=== PATIENT | female | born 1965 | race Caucasian/White ===

== ENCOUNTER 2020-11-18 14:03 | Outpatient (CLI) | payer OTHER, SELFPAY ==
--- NOTE | ~2020-11-18 | MM_ITS ---
EXAMINATION: MM screening opal BI w chiquita HISTORY: Screening TECHNIQUE: Craniocaudal and mediolateral oblique 3-D tomosynthesis images were obtained and synthetic 2-D images were generated. CAD analysis was submitted and interpreted. COMPARISON: Comparison to multiple prior studies sequentially, with oldest reviewed study dated 07/16. BREAST PARENCHYMAL COMPOSITION: The breasts are almost entirely fatty. FINDINGS: There is no evidence of suspicious mass, calcification, or architectural distortion to sugg est malignancy in either breast. There has been no suspicious interval change. IMPRESSION: 1. No mammographic evidence of malignancy. 2. Recommend routine screening mammography in one year. BI-RADS Category 1: Negative Reviewed, dictated and finalized at location A.
== END 2020-11-18 14:04 | disposition home or self-care (01) ==
LOC: ANHIMG 14:07
PROVIDERS: PCP Family Medicine; Visit Provider Family Medicine
DX: Z12.31 Encounter for screening mammogram for malignant neoplasm of breast (principal)
CPT/HCPCS: 77063; 77067

== ENCOUNTER 2021-01-18 13:16 | Inpatient (IN) | payer OTHER, SELFPAY ==
--- NOTE | ~2021-01-18 | MR_ITS ---
EXAMINATION: MR MRCP wo/w con/w 3D wo ind DATE: 01/20/2021 11:23 INDICATION: Abdominal pain. Abnormal right upper quadrant ultrasound with dilated common bile duct. TECHNIQUE: Magnetic resonance imaging (MRI) of the abdomen was performed without and with 19 mL Multi caridad intravenous contrast. Sequences included coronal T2-weighted SS-FSE, coronal T2-weighted FS SS- FSE, coronal T2-weighted FS FIESTA, axial T2-weighted FS FIESTA, axial T2-weighted FIESTA, sagittal T 2-weighted SS-FSE, axial T1-weighted dual-echo FSPGR, axial T2-weighted SS-FSE, axial T1-weighted LAV A, axial T2-weighted STIR FSE. Thick-slab T2-weighted FRFSE-XL images were obtained for magnetic reso nance cholangiopancreatography (MRCP). Rotating maximum intensity projection 3-D reconstructions of t he volumetric data were created by the technologist. Postcontrast sequences included a time course of axial T1-weighted LAVA. COMPARISON: Ultrasound dated 01/19/2021 FINDINGS: ABDOMEN MRI: Heart size is normal. No pericardial or pleural effusion. Small sliding-type hiatal hernia. Diffuse h epatic steatosis with prominent signal dropout on opposed phase images. Gallbladder, spleen, bilatera l adrenal glands and kidney are normal. There is horizontal orientation of an otherwise normal right kidney. 3-4 mm cystic lesion at the body of the pancreas. Visualized portions of the bowels are leonor l. Trace amount of a splenic ascites. No pathologically enlarged abdominal lymphadenopathy. T1 hyperi ntense fat saturating small hemangioma at L3. Severe disc height loss with fibrofatty degenerative en dplate changes at L5-S1. No pathologic marrow replacing process. ABDOMEN MRCP: There is mild dilation of the common bile duct to 7 mm but which tapers smoothly with no evident stri cture or intraluminal filling defects to suggest choledocholithiasis. No cholelithiasis within the ga llbladder. No dilation of the main pancreatic duct or of the intrahepatic biliary tree. IMPRESSION: 1. Nonspecific mild dilation the common bile duct to 7 mm without evident obstructing stricture, mass or stones. 2. 3 to 4 mm cystic lesion at the body of the pancreas. The differential diagnosis includes pseudocys t, intraductal papillary mucinous neoplasm (IPMN), mucinous cystic neoplasm (MCN), and the less commo n serous cystadenoma and neuroendocrine tumor. Correlate for history of pancreatitis. Recommend one-y ear follow-up pre and postcontrast MRI. 3. Prominent diffuse hepatic steatosis. 4. Small sliding-type hiatal hernia. 5. Trace amount of perisplenic ascites. Reviewed, dictated and finalized at location A. IMPRESSION: 1. Nonspecific mild dilation the common bile duct to 7 mm without evident obstr ucting stricture, mass or stones. 2. 3 to 4 mm cystic lesion at the body of the pancreas. The differential diagno sis includes pseudocyst, intraductal papillary mucinous neoplasm (IPMN), mucino us cystic neoplasm (MCN), and the less common serous cystadenoma and neuroendoc rine tumor. Correlate for history of pancreatitis. Recommend one-year follow-up pre and postcontrast MRI. 3. Prominent diffuse hepatic steatosis. 4. Small sliding-type hiatal hernia. 5. Trace amount of perisplenic ascites.
--- NOTE | ~2021-01-18 | US_ITS ---
EXAMINATION: US right upper quadrant DATE: 01/19/2021 11:24 INDICATION: Transaminitis TECHNIQUE: Multiple grayscale and Doppler ultrasound images of the abdomen were obtained. COMPARISON: 05/27/2016 FINDINGS: The head and body of the pancreas are normal. The pancreatic tail is obscured by bowel gas. The liver is normal with normal echogenicity and echotexture. No surface nodularity. Normal hepatope liban flow in the main portal vein. The gallbladder is normal with no abnormal wall thickening, pericho lecystic fluid or stones. The mildly enlarged common bile duct measures 7 mm. There was no sonographi c Ballesteros sign. IMPRESSION: 1. Mild enlargement of the common bile duct of unclear etiology. Consider MRCP. Reviewed, dictated and finalized at location A.
--- NOTE | ~2021-01-18 | MR_ITS ---
EXAMINATION: MR lumbar spine wo/w con DATE: 01/19/2021 11:14 INDICATION: Numbness and tingling of the lower extremities. Mid to low back pain. TECHNIQUE: Magnetic resonance imaging (MRI) of the lumbar spine was performed without and with 19 mL MultiHance intravenous contrast. Sequences included sagittal T2-weighted FSE, sagittal T2-weighted FS FSE, and sagittal and axial T1-weighted FSE. Postcontrast sequences included axial T2-weighted FSE a nd axial and sagittal T1-weighted FS FSE. COMPARISON: None FINDINGS: There is 4 degrees dextrocurvature of thoracic lumbar spine. There is 3 mm retrolisthesis o f L4 on L5 and L5 on S1. Vertebral body heights are normal. There is mildly decreased disc height at L2-L3. There is severely decreased disc height at L5-S1 with endplate remodeling. The distal spinal c ord signal intensity is normal. The conus medullaris is at L1. The following disc levels are specific ally discussed: L1-L2: The disc is bulging and has an annular fissure. There is mild bilateral facet joint osteoarthr itis. There is mild bilateral neural foraminal stenosis. There is mild central canal stenosis. L2-L3: The disc is bulging and has an annular fissure. There is moderate bilateral facet joint osteoa rthritis. There is mild bilateral neural foraminal stenosis. There is mild central canal stenosis. L3-L4: The disc is bulging. There is severe bilateral facet joint osteoarthritis. There is mild bilat eral neural foraminal stenosis. There is mild central canal stenosis. L4-L5: The disc is bulging and has an annular fissure. There is severe bilateral facet joint osteoart hritis. There is mild bilateral neural foraminal stenosis. There is mild central canal stenosis. L5-S1: The disc is bulging with superimposed right central extrusion. There is moderate and severe le ft facet joint osteoarthritis. There is mild bilateral neural foraminal stenosis. There is mild centr al canal stenosis. IMPRESSION: 1. Severe lower lumbar spondylosis. Reviewed, dictated and finalized at location A.
--- NOTE | ~2021-01-18 | MR_ITS ---
EXAMINATION: MR thoracic spine wo/w con DATE: 01/19/2021 11:15 INDICATION: Mid and low back pain. Bilateral lower extremity numbness and tingling. TECHNIQUE: Magnetic resonance imaging (MRI) of the thoracic spine was performed without and with 19 m L MultiHance intravenous contrast. Sequences included sagittal and axial T2-weighted FSE, sagittal T2 -weighted FS FSE, and sagittal and axial T1-weighted FSE. Postcontrast sequences included sagittal an d axial T1-weighted FS FSE. COMPARISON: None FINDINGS: There is 6 degrees levocurvature of thoracic spine. Vertebral body heights are normal. Ther e is mildly decreased disc height at T3-T4 and T4-T5, moderately decreased disc height from T5-T6 thr ough T9-T10, and mildly decreased disc height at T10-T11. At T4-T5, there is a left central protrusio n. There is multilevel facet joint osteoarthritis, mild at most levels. No neural foraminal stenosis or central canal stenosis. There is moderate cervical spondylosis. The spinal cord signal intensity i s normal. IMPRESSION: 1. Moderate thoracic spondylosis. Reviewed, dictated and finalized at location A.
--- NOTE | ~2021-01-18 | XR_ITS ---
EXAMINATION: XR chest 2V DATE: 01/18/2021 14:19 INDICATION: Weakness and midsternal chest pain TECHNIQUE: Frontal and lateral views of the chest are obtained COMPARISON: 12/20/2011 FINDINGS: The lungs are free of acute opacities. There is no pleural effusion or pneumothorax. The ca rdiomediastinal silhouette is normal. There is moderate thoracic spondylosis. IMPRESSION: 1. No acute cardiopulmonary abnormality. Reviewed, dictated and finalized at location A.
--- NOTE | 2021-01-18 13:38 | ECG_ITS ---
Measurements Intervals [place] Plane Rate: 102 P: 44 NE: 136 QRS: -6 QRSD: 89 T: 37 QT: 368 QTc: 480 Interpretive Statements SINUS TACHYCARDIA POSSIBLE LEFT ATRIAL ENLARGEMENT INCOMPLETE RIGHT BUNDLE BRANCH BLOCK LOW QRS VOLTAGE IN PRECORDIAL LEADS POOR R WAVE PROGRESSION, CONSIDER ANTERIOR INFARCT BORDERLINE T WAVE ABNORMALITY- ANT/INF LEADS ABNORMAL ECG Electronically Signed On 01-18-2021 14:03:54 CDT by Dayron Hernandez D.O.
[2021-01-18 13:41] VITALS: BP 99/75; PULSE 109; RESP 14; TEMP 36.9; O2SAT 99
[2021-01-18 14:24] LABS: Basophils Percent Auto 0.3 % (0.2-1.2); Eosinophils Percent Auto 0.3 % (0-4.4); Hematocrit 34.2 % (37.0-47.0); Hemoglobin 12.6 g/dL (12.0-15.0); Immature Granulocyte Absolute 0.02 K/mm3 (0.00-0.031); Immature Granulocyte Percent A 0.3 % (0-0.5); Lymphocytes Absolute Auto 1.56 K/mm3 (0.9-3.2); Mean Corpuscular HGB Conc 36.8 g/dl (32-36); Mean Corpuscular Hemoglobin 40.5 pg (26-34); Mean Platelet Volume 8.9 fl (7.4-10.4); Monocytes Absolute Auto 0.6 K/mm3 (0.1-0.6); Monocytes Percent Auto 8.4 % (2.6-8.5); Neutrophils Absolute Auto 4.6 K/mm3 (1.3-6.7); Neutrophils Percent Auto 67.7 % (45.5-73.1); Platelet Count Result 211 k/mm3 (150-375); Red Blood Count 3.11 M/mm3 (4.2-5.4); Red Cell Distribution Width 13.6 % (11.5-14.5); White Blood Count 6.8 K/mm3 (4.5-10.0)
[2021-01-18 14:46] VITALS: PULSE 92; RESP 16; O2SAT 99
[2021-01-18 14:51] LABS: Alanine Aminotransferase 149 U/L (4-35); Albumin Level 3.6 g/dL (3.5-5.1); Alkaline Phosphatase 219 U/L (38-126); Anion Gap 14 mmol/L (8-16); Aspartate Amino Transferase 315 U/L (14-36); Blood Urea Nitrogen 3 mg/dL (7-17); Calcium 9.1 mg/dL (8.4-10.2); Carbon Dioxide 24 mmol/L (22-30); Chloride 87 mmol/L (98-107); Estimated CRCL calculation 107 ml/min; Estimated Glomerular Filt Rate > 60; Glucose 101 mg/dL (65-110); Potassium 2.5 mmol/L (3.4-5.0); Sodium 125 mmol/L (137-145)
--- NOTE | 2021-01-18 15:31 | ED.GENADULT ---
HPI - General Adult General Chief complaint: Neuro Symptoms/Deficit Stated complaint: numbness BLE Time Seen by Provider: 01/18/21 14:38 History of Present Illness HPI narrative: Patient is a 55-year-old female who presents ER with numbness/tingling to her lower extremities and her lower abdomen below the umbilicus. Patient reports couple days ago she had viral syndrome with sinus congestion. She obtained a Covid test which was negative. She reports she has been having diarrhea and some nausea. She has history of gastric bypass. Noticed today that she was having lower extremity tingling. She still able to walk but feels weaker in the affected extremities. Related Data Home Medications Medication Instructions Recorded Confirmed cyclobenzaprine 5 mg PO DAILY PRN 01/18/21 01/18/21 levothyroxine [Levoxyl] 25 mcg PO DAILY 01/18/21 01/18/21 ondansetron 8 mg PO BIDWMEAL 01/18/21 01/18/21 Allergies Allergy/AdvReac Type Severity Reaction Status Date / Time sibutramine Allergy Mild Rash Verified 01/18/21 18:45 amitriptyline Allergy Unknown Seizure Verified 01/18/21 18:45 carbamazepine Allergy Unknown Unknown Verified 01/18/21 18:45 Review of Systems Review of Systems: All systems reviewed & are unremarkable except as noted in HPI and below Constitutional: Constitutional: Denies chills, Denies fever(s) and Reports weakness ENT: Denies nasal congestion and Denies sore throat Cardiovascular: Cardiovascular: Denies chest pain, Denies rapid heart rate and Denies radiating jaw, neck or arm pain Respiratory: Respiratory: Denies cough, Denies dyspnea and Denies wheezing Gastrointestinal: Gastrointestinal: Denies abdominal pain, Reports diarrhea, Reports nausea and Denies vomiting [facility] Past Medical History Medical History (Updated 01/23/21 @ 18:57 by Eren Banerjee MD) Alcoholism Anxiety and depression Chronic diarrhea Essential hypertension GERD (gastroesophageal reflux disease) Hypothyroidism Obstructive sleep apnea resolved after weight loss surgery Surgical History Surgical History (Updated 01/18/21 @ 21:30 by Lauren Hines DO) History of carpal tunnel release (~2006) right History of hysterectomy for benign disease (~2008) History of right knee joint replacement (~2014) History of right oophorectomy (~2008) Status post laparoscopic sleeve gastrectomy (~2017) preop weight 330 lb Family History Family History (Updated 01/18/21 @ 21:40 by Lauren Hines DO) Father Hypertension Malignant neoplasm of prostate Mother Heart disease IBS (irritable bowel syndrome) Son Crohn's disease Other Carcinoma of colon Depression Social History Social History (Updated 01/18/21 @ 21:46 by Lauren Hines DO) Social History: she lives at home with her small dog. She has been since 2019. She has smoked a half a pack of cigarettes per day for approximately 30 years. she has a complicated history with alcohol abuse. She used to drink quite heavily and then quit drinking for several years but when her became ill in 2018 she started drinking heavily again. She drinks approximately 6 mixed drinks a day. 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 She has 1 son. Primary care physician: Dr. Patricio Atkinson Smoking packs per day: 0.5 Smoking cigarettes per day: 10.0 Years smoked: 30 Smoking pack-years: 15.00 Smoking status: Current every day smoker Tobacco type: cigarettes Second hand tobacco smoke exposure: Yes Alcohol intake: current Drinks per week: 20 Substance use: former Gender identity (if verbalized by the patient): Female Spiritual care concerns: No Exam Narrative: GENERAL: Ill-appearing, well-nourished, and in no acute distress. HEAD: Normocephalic, atraumatic. EYES: PERRL and EOMI. CHEST: Clear to auscultation. No respiratory distress. HEART: Tachycardic regular.. Normal p
[2021-01-18] MEDS: POTASSIUM CHLORIDE 20 MEQ PACKET (FOR LIQUID) 40 MEQ PO (15:52)
[2021-01-18 16:15] LABS: Magnesium 1.6 mg/dL (1.6-2.3)
[2021-01-18] MEDS: SODIUM CHLORIDE 0.9% IV 1,000 ML 999 ML IV CONT (16:31)
[2021-01-18 17:39] VITALS: BP 159/122; PULSE 95; RESP 22; O2SAT 100
[2021-01-18 17:55] LABS: Add Urine Microscopic? YES; Appearance Urine Cloudy (Clear); Bacteria Urine Trace /hpf; Bilirubin Urine Negative (Negative); Color Urine Yellow (Yellow); Glucose Urine UA Negative (Negative); Ketones Urine Negative (Negative); Leukocyte Esterase Ur 1+ LEU/UL (Negative); Mucus Urine Rare /lpf; Nitrate Urine Positive (Negative); Protein Urine Negative (Negative); RBC Urine 0-2 /hpf (0-2); Specific Grav Ur 1.011 (1.001-1.035); Squamous Epithelial Cell Urine Moderate /hpf (Few); Urobilinogen Urine Negative mg/dL (<2.0)
[2021-01-18 18:00] LABS: Blood Urine Negative (Negative)
--- NOTE | 2021-01-18 18:19 | ADMGEN ---
This patient, Jazlyn Waddell, was admitted to Medical Room 249-01. Patient/family oriented to hospital policies and general routines including ID bracelet, bed and alarms, visiting hours, pain management, procedures, bathroom and other care routines, personal items, smoking policy, room service/diet, and visiting hours. Information on how to activate the Rapid Response Team has been discussed. Patient/Family are encouraged to report perceived risks to care and to ask questions if they do not understand what they are told or what they should do.
[2021-01-18 18:25] VITALS: BMI 32.8
[2021-01-18 18:27] VITALS: BMI 32.8
[2021-01-18 19:01] VITALS: BP 143/111; PULSE 107; RESP 18; TEMP 36.4; O2SAT 99
--- NOTE | 2021-01-18 19:03 | PM.IMHP ---
H&P: HPI History of Present Illness Date/Time: 01/18/21 19:03 Chief Complaint: Numbness and tinglingin her legs and abdomen. Narrative: 55-year-old female with past medical history of alcoholism, hypothyroidism, obesity status post gastric sleeve, GERD, anxiety and depression who presented to the ER with paresthesias of bilateral feet and legs. She reports that she has been having several months of weakness in her legs. She reports that her legs will randomly give out on her. Over the last week she has been having paresthesias of her legs and abdomen. She also has some paresthesias in her hands. She reports the sensation is similar to the paresthesias that she has on her right knee following her right total knee arthroplasty. She reports decreased sensation to pinprick. She reports that she will get senior living across the room and her legs will be so weak that she has to sit down. She did have gastric sleeve in 2017 and has not been taking her bariatric vitamins as directed. She has also been drinking alcohol heavily since her got cancer in 2018 and in 2019. She has a long history of alcoholism but had quit drinking for several years and started drinking again in 2018. Since her gastric sleeve she has had chronic diarrhea almost on a daily basis. She will have episodes of mucousy stools at times. For the most part her stools are brown. She does take Imodium on occasion to help with the diarrhea. She reports her abdomen feels generally achy in the lower quadrants. She denies any hematochezia or melena. She does occasionally have hemorrhoids that occur. She already has an outpatient appointment with a post acute care nurse practitioner for colonoscopy in January 28 at [facility]. She has had intermittent nausea and vomiting ever since her gastric sleeve procedure. She reports that postoperatively she had had a trochanter left in her abdomen. She reports that she is currently in the process of suing the surgeon for her bypass procedure. Ever since her gastric sleeve she has frequent episodes of nausea. She states that she will frequently wake up dry heaving. She denies any hematemesis or coffee-ground emesis. She has not been having any fevers or chills. She reports that she falls all the time. Most the time she reports that she plans on her face . It sounds as if she is falling in part due to alcohol consumption. She drinks at least 6 mixed drinks a day except for the 2 days a week where she works she only drinks 2 or 3 alcoholic beverages at that time. She mixes her alcohol with juice. 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 she reports that she has noticed that her memory seems to be slipping a little bit. Review of Systems Review of Systems: 12 systems were reviewed with pertinent positives and negatives per HPI. Except as documented in the HPI, all other systems were reviewed and are negative. [facility] Past Medical History Medical History (Updated 01/18/21 @ 22:02 by Lauren Hines DO) Alcoholism Anxiety and depression Chronic diarrhea Essential hypertension GERD (gastroesophageal reflux disease) Hypothyroidism Obstructive sleep apnea resolved after weight loss surgery Surgical History Surgical History (Updated 01/18/21 @ 21:30 by Lauren Hines DO) History of carpal tunnel release (~2006) right History of hysterectomy for benign disease (~2008) History of right knee joint replacement (~2014) History of right oophorectomy (~2008) Status post laparoscopic sleeve gastrectomy (~2016) preop weight 330 lb Family History Family History (Updated 01/18/21 @ 21:40 by Lauren Hines DO) Father Hypertension Malignant neoplasm of prostate Mother Heart disease IBS (irritable bowel syndrome) Son Crohn's disease Other Carcinoma of colon Depression Social History Social Hi
[2021-01-18] MEDS: MAGNESIUM SULF 2 GM/WATER 50ML 2 GM/50 ML BAG IVPB (19:04)
[2021-01-18] MEDS: SODIUM CHLORIDE 0.9% IV 1,000 ML 125 ML IV CONT (19:04)
[2021-01-18 20:00] VITALS: PULSE 107; PULSE 97; RESP 18; O2SAT 99
[2021-01-18 21:30] LABS: Anion Gap 10 mmol/L (8-16); Blood Urea Nitrogen 3 mg/dL (7-17); Calcium 8.7 mg/dL (8.4-10.2); Carbon Dioxide 24 mmol/L (22-30); Chloride 92 mmol/L (98-107); Estimated CRCL calculation 125 ml/min; Estimated Glomerular Filt Rate > 60; Glucose 96 mg/dL (65-110); Potassium 3.7 mmol/L (3.4-5.0); Sodium 126 mmol/L (137-145)
[2021-01-18 22:02] LABS: Hepatitis B Surface Antigen Negative (Negative)
[2021-01-18 22:08] LABS: HAV RESULT Negative (Negative); Hepatitis B Core IgM Result Negative (Negative)
[2021-01-18] MEDS: chlordiazePOXIDE (*CRX) 10 MG CAPSULE PO (22:17)
[2021-01-18 22:20] LABS: Hepatitis C Virus Antibody Negative (Negative)
[2021-01-19] VITALS (7 sets, daily range): BP systolic 138–143; BP diastolic 83–111; PULSE 79–88; RESP 16–24; TEMP 36.3–36.6; O2SAT 97–100
[2021-01-19 02:01] LABS: Sodium Urine Random < 5 meq/L
[2021-01-19] MEDS: chlordiazePOXIDE (*CRX) 10 MG CAPSULE PO ×3 (04:28→20:58)
[2021-01-19 06:06] LABS: Hematocrit 29.5 % (37.0-47.0); Mean Corpuscular HGB Conc 37.3 g/dl (32-36); Mean Corpuscular Hemoglobin 40.9 pg (26-34); Mean Corpuscular Volume 109.7 fl (80-100); Mean Platelet Volume 9.3 fl (7.4-10.4); Platelet Count Result 180 k/mm3 (150-375); Red Blood Count 2.69 M/mm3 (4.2-5.4); Red Cell Distribution Width 13.3 % (11.5-14.5); White Blood Count 5.6 K/mm3 (4.5-10.0)
[2021-01-19 06:22] LABS: Alanine Aminotransferase 129 U/L (4-35); Albumin Level 3.1 g/dL (3.5-5.1); Alkaline Phosphatase 186 U/L (38-126); Anion Gap 6 mmol/L (8-16); Aspartate Amino Transferase 240 U/L (14-36); Bilirubin,Total 1.2 mg/dL (0.2-1.3); Blood Urea Nitrogen 5 mg/dL (7-17); Calcium 8.2 mg/dL (8.4-10.2); Carbon Dioxide 27 mmol/L (22-30); Chloride 92 mmol/L (98-107); Estimated CRCL calculation 125 ml/min; Estimated Glomerular Filt Rate > 60; Glucose 77 mg/dL (65-110); Lipase 33 U/L (23-300); Magnesium 2.2 mg/dL (1.6-2.3); Phosphorus 2.5 mg/dL (2.5-4.5); Potassium 3.2 mmol/L (3.4-5.0); Sodium 125 mmol/L (137-145)
[2021-01-19] MEDS: LEVOTHYROXINE SODIUM 25 MCG TABLET PO (06:23)
[2021-01-19 07:20] LABS: Folic Acid 2.5 ng/mL (2.76->20); Vitamin B12 > 1000.0 pg/mL (239-931)
[2021-01-19] MEDS: ENOXAPARIN 40 MG/0.4 ML SYRINGE SUB-Q (09:14)
[2021-01-19] MEDS: ONDANSETRON HCL ODT 4 MG TABLET 8 MG PO ×2 (09:15→17:15)
[2021-01-19] MEDS: FOLIC ACID 1 MG TABLET PO (09:15)
[2021-01-19] MEDS: THIAMINE HCL 100 MG TABLET PO (09:15)
[2021-01-19] MEDS: POTASSIUM CHLORIDE 20 MEQ TABLET.ER PO (09:16)
[2021-01-19] MEDS: POTASSIUM CHLORIDE 20 MEQ TABLET 40 MEQ PO ×2 (12:15→15:04)
[2021-01-19] MEDS: SODIUM CHLORIDE 0.9% IV 1,000 ML 125 ML IV CONT (12:15)
--- NOTE | 2021-01-19 14:21 | PM.IMPN ---
Progress Note: A&P Assessment and Plan (1) Paresthesias: Code(s): R20.2 - Paresthesia of skin Status: Acute Assessment and Plan: -paresthesia lower extremities umbilicus. consulting neurology. If worsening then will have to consider guillan barre. considering she was recently with a viral illness a month ago. - may be related to electrolyte abnormalities from alcoholism, repleting potassium - B12 greater than 1000 - folate slightly low will continue to supplement along with thiamine especially with her alcoholism (2) Chronic diarrhea: Code(s): K52.9 - Noninfective gastroenteritis and colitis, unspecified Status: Acute Assessment and Plan: - may be related to alcoholism, s/p gastric bypass sleeve. may be related to electrolyte depletion. Will obtain MRCP for CBD evaluation - continue Imodium - continue IV fluids for hyponatremia (3) Alcoholism: Code(s): F10.20 - Alcohol dependence, uncomplicated Status: Acute Assessment and Plan: - case management resources provided for AA - CIWA protocol, continue Librium taper (4) Transaminitis: Code(s): R74.01 - Elevation of levels of liver transaminase levels Status: Acute Assessment and Plan: - right upper quadrant ultrasound concerning with dilated common bile duct, recommendations for MRCP, will order MRCP for further evaluation. In may be related to her chronic diarrhea and abdominal issues - Zofran for nausea (5) Acute hyponatremia: Code(s): E87.1 - Hypo-osmolality and hyponatremia Status: Acute Assessment and Plan: - likely secondary to alcoholism and poor p.o. intake, IV fluids normal saline given for likely hypovolemic hyponatremia considering her diarrhea - will do fluid restriction 1500 cc - awaiting hypernatremia lab work (6) Hypomagnesemia: Code(s): E83.42 - Hypomagnesemia Status: Acute Assessment and Plan: likely related to alcoholism, repleting as needed (7) Hypokalemia due to excessive gastrointestinal loss of potassium: Code(s): E87.6 - Hypokalemia Status: Acute Assessment and Plan: replete as needed. potassium is 3.2 giving another 40 mEq x2 Additional Plan diet: Regular DVT prophylaxis: Lovenox code status: Full code Disposition: Pending clinical course social: Spouse updated bedside Subjective Date/time seen: 01/19/21 14:21 patient examined bedside. We awaiting lab results and imaging results. B12 is greater than a 1000 which is reassuring. Case management has provided information for alcoholism. we will continue to replete electrolytes and follow-up. Patient had of viral illness recently and there was some concern for guillain barre will consult neurology. patient endorses abdominal pain, diarrhea. She endorses the numbness of her lower extremities up to her umbilicus. the symptoms appear to be on the ventral side sparing the dorsal aspect of her body surface. at this time etiology is very unclear. Patient denies fever, chills, nausea, vomiting. Review of Systems Review of Systems: All systems reviewed & are unremarkable except as noted in HPI and below Exam Narrative: - GENERAL: Pleasant obese female appears stated age - EYES: EOMI. Anicteric. - HENT: Moist mucous membranes. - LUNGS: Clear to auscultation bilaterally, no wheezing, rhonchi, or rales. - CARDIOVASCULAR: Regular rate and rhythm. No murmur. No JVD. - ABDOMEN: Soft, non-distended. No palpable masses. tender on deep palpation lower quadrants - EXTREMITIES: No edema. Peripheral pulses 2+. Non-tender. - NEUROLOGIC: No focal neurological deficits. CN II-XII grossly intact. - PSYCHIATRIC: Awake, Alert and oriented x 3. Appropriate mood and affect. - SKIN: No rashes or lesions. Warm. - LYMPH: No cervical lymphadenopathy. Objective Data Vital Signs Vital Signs: Vital Signs - 24 hr 01/18/21 14:46 01/18/21 17:39 01/18/21 19:01 Temperat
[2021-01-19 15:42] LABS: Creatinine Urine 117.3 mg/dL
[2021-01-19] MEDS: SODIUM CHLORIDE 0.9% IV 1,000 ML 100 ML IV CONT (20:57)
[2021-01-19] MEDS: rOPINIRole HCL 0.25 MG TABLET PO (21:23)
[2021-01-20] VITALS: BP 139/90; PULSE 78
[2021-01-20] MEDS: chlordiazePOXIDE (*CRX) 10 MG CAPSULE PO ×2 (03:50→12:44)
[2021-01-20 04:00] VITALS: BP 139/90; PULSE 101
[2021-01-20 05:02] VITALS: BP 125/86; PULSE 96; RESP 20; TEMP 36; O2SAT 98
[2021-01-20] MEDS: LOPERAMIDE HCL 2 MG CAPSULE PO (06:04)
[2021-01-20] MEDS: LEVOTHYROXINE SODIUM 25 MCG TABLET PO (06:04)
[2021-01-20] MEDS: SODIUM CHLORIDE 0.9% IV 1,000 ML 100 ML IV CONT (06:07)
[2021-01-20 07:56] LABS: Basophils Percent Auto 0.4 % (0.2-1.2); Eosinophils Percent Auto 0.7 % (0-4.4); Hematocrit 33.1 % (37.0-47.0); Hemoglobin 11.6 g/dL (12.0-15.0); Immature Granulocyte Absolute 0.02 K/mm3 (0.00-0.031); Immature Granulocyte Percent A 0.4 % (0-0.5); Lymphocytes Absolute Auto 1.87 K/mm3 (0.9-3.2); Lymphocytes Percent Auto 33.3 % (18.3-44.2); Mean Corpuscular Hemoglobin 40.6 pg (26-34); Mean Corpuscular Volume 115.7 fl (80-100); Mean Platelet Volume 9.3 fl (7.4-10.4); Monocytes Absolute Auto 0.4 K/mm3 (0.1-0.6); Monocytes Percent Auto 7.5 % (2.6-8.5); Neutrophils Absolute Auto 3.3 K/mm3 (1.3-6.7); Neutrophils Percent Auto 57.7 % (45.5-73.1); Platelet Count Result 222 k/mm3 (150-375); Red Blood Count 2.86 M/mm3 (4.2-5.4); Red Cell Distribution Width 13.9 % (11.5-14.5); White Blood Count 5.6 K/mm3 (4.5-10.0)
[2021-01-20 08:00] VITALS: PULSE 81
[2021-01-20 08:58] LABS: Anion Gap 8 mmol/L (8-16); Blood Urea Nitrogen 6 mg/dL (7-17); Calcium 8.8 mg/dL (8.4-10.2); Carbon Dioxide 21 mmol/L (22-30); Chloride 103 mmol/L (98-107); Estimated CRCL calculation 107 ml/min; Estimated Glomerular Filt Rate > 60; Glucose 81 mg/dL (65-110); Potassium 3.8 mmol/L (3.4-5.0); Sodium 132 mmol/L (137-145)
[2021-01-20] MEDS: THIAMINE HCL 100 MG TABLET PO (09:49)
[2021-01-20] MEDS: FOLIC ACID 1 MG TABLET PO (09:49)
[2021-01-20] MEDS: POTASSIUM CHLORIDE 20 MEQ TABLET.ER PO (09:49)
[2021-01-20] MEDS: ENOXAPARIN 40 MG/0.4 ML SYRINGE SUB-Q (09:49)
[2021-01-20] MEDS: ONDANSETRON HCL ODT 4 MG TABLET 8 MG PO (09:49)
--- NOTE | 2021-01-20 10:13 | PC.NURSE ---
This patient, Jazlyn Waddell, was transferred to [[facility] ] on 01/20/21 at 1014. Personal belongings sent with patient. Report given to [Duong ]. Appropriate documentation sent with patient.
--- NOTE | 2021-01-20 11:30 | PC.NURSE ---
This patient, Jazlyn Waddell, was received from [ MRI] on 01/20/21 at 1130. Patient/family oriented to unit policies and routines
--- NOTE | 2021-01-20 11:54 | PM.IMPN ---
Progress Note: A&P Assessment and Plan (1) Paresthesias: Code(s): R20.2 - Paresthesia of skin Status: Acute Assessment and Plan: - consulting Neurology, patient may need outpatient EMG. as her reflexes are okay I do not believe this is Guillane [place] -likely explanation for symptoms are the severe lumbar spondylolysis. she will need outpatient neurosurgery evaluation (2) Chronic diarrhea: Code(s): K52.9 - Noninfective gastroenteritis and colitis, unspecified Status: Acute Assessment and Plan: - ongoing symptoms for the past year -may be dumping syndrome after gastric sleeve surgery -Will evaluate MRCP for biliary duct (3) Alcoholism: Code(s): F10.20 - Alcohol dependence, uncomplicated Status: Acute Assessment and Plan: CIWA are low - will continue supplementation of vitamins (4) Transaminitis: Code(s): R74.01 - Elevation of levels of liver transaminase levels Status: Acute Assessment and Plan: liver ultrasound was concerning for dilated common bile duct, follow-up MRCP today (5) Acute hyponatremia: Code(s): E87.1 - Hypo-osmolality and hyponatremia Status: Acute Assessment and Plan: sodium is up trending, sodium 132 (6) Hypokalemia due to excessive gastrointestinal loss of potassium: Code(s): E87.6 - Hypokalemia Status: Acute Assessment and Plan: Replete potassium Additional Plan diet: Regular DVT prophylaxis: Lovenox code status: Full code Disposition: Pending clinical course, discharge home soon Time Spent With Patient Time with patient: 15 - 25 minutes Subjective Date/time seen: 01/20/21 11:54 patient examined. She still having episodes of Urinary incontinence and loose bowels. she was found to have E coli in her urine, we discussed starting Rocephin antibiotic. She is NPO for MRCP this morning after ultrasound yesterday. I discussed neurology who will evaluate patient today. Patient started Requip yesterday which helped her restless legs. etiology for symptoms are likely secondary to the severe lumbar spondylolysis, patient can have outpatient EMG to further evaluate as well. patient denies fever, chills, nausea, vomiting. We discussed that her diarrhea which is chronic over a year may be related to dumping syndrome from her gastric sleeve however we are working up a biliary duct etiology with MRCP. Review of Systems Review of Systems: All systems reviewed & are unremarkable except as noted in HPI and below Exam Narrative: - GENERAL: Pleasant obese female appears stated age - EYES: EOMI. Anicteric. - HENT: Moist mucous membranes. - LUNGS: Clear to auscultation bilaterally, no wheezing, rhonchi, or rales. - CARDIOVASCULAR: Regular rate and rhythm. No murmur. No JVD. - ABDOMEN: Soft, non-distended. No palpable masses. tender on deep palpation lower quadrants. Numbness has not gone above umbilicus. - EXTREMITIES: No edema. Peripheral pulses 2+. Non-tender. - NEUROLOGIC: No focal neurological deficits. CN II-XII grossly intact. - PSYCHIATRIC: Awake, Alert and oriented x 3. Appropriate mood and affect. - SKIN: No rashes or lesions. Warm. - LYMPH: No cervical lymphadenopathy. Objective Data Vital Signs Vital Signs: Vital Signs - 24 hr 01/19/21 14:00 01/19/21 20:00 01/19/21 20:27 Temperature 36.6 C 36.3 C L Pulse Rate 83 86 88 Respiratory Rate 24 H 20 20 Blood Pressure 138/90 139/90 139/90 Pulse Oximetry 100 100 100 01/20/21 00:00 01/20/21 04:00 01/20/21 05:02 Temperature 36.0 C L Pulse Rate 78 101 H 96 Respiratory Rate 20 Blood Pressure 139/90 139/90 125/86 Pulse Oximetry 98 01/20/21 08:00 Temperature Pulse Rate 81 Respiratory Rate Blood Pressure Pulse Oximetry Intake/Output Intake/Output: Intake & Output 01/17/21 01/18/21 01/19/21 01/20/21 23:59 23:59 23:59 23:59 Intake Total 1000 2650 1060 Balance 1000 2650 1060 Meds/Results
[2021-01-20 14:00] VITALS: BP 147/90; PULSE 95; RESP 16; TEMP 36.3; O2SAT 100
--- NOTE | 2021-01-20 15:20 | PM.DS ---
DS: Admitting Diagnosis Admitting Diagnosis paresthesias, hypokalemia, chronic diarrhea DS: Discharge Diagnosis Discharge Diagnosis (1) Chronic diarrhea: Code(s): K52.9 - Noninfective gastroenteritis and colitis, unspecified Status: Acute Assessment and Plan: patient has tried Metamucil a past states that it is a meal for her and she cannot tolerate. We discussed trying Benefiber (2) Paresthesias: Code(s): R20.2 - Paresthesia of skin Status: Acute Assessment and Plan: MRIs of her spine show moderate thoracic and severe lumbar spondylolysis. patient should follow-up with neurosurgeon to evaluate spine for possible laminectomy if that is relating to her lower extremity paresthesias. She will also have Neurology follow-up with EMG of lower extremities. (3) Alcoholism: Code(s): F10.20 - Alcohol dependence, uncomplicated Status: Acute Assessment and Plan: critical care educator provided resources for her alcoholism. No signs of withdrawal during her hospitalization (4) Transaminitis: Code(s): R74.01 - Elevation of levels of liver transaminase levels Status: Acute Assessment and Plan: likely secondary to alcoholism. Abdominal ultrasound subsequent MRCP completed showing fatty liver, 7 mm dilated common bile duct with no obstruction, pancreatic cyst with recommendations for 1 year follow-up MRCP (5) Acute hyponatremia: Code(s): E87.1 - Hypo-osmolality and hyponatremia Status: Acute Assessment and Plan: improved with IV fluids, likely from malnutrition from alcoholism. Patient encouraged she balanced diet (6) Hypomagnesemia: Code(s): E83.42 - Hypomagnesemia Status: Acute Assessment and Plan: repleted, Will recheck in 1 week. (7) Hypokalemia due to excessive gastrointestinal loss of potassium: Code(s): E87.6 - Hypokalemia Status: Acute Assessment and Plan: Likely from diarrhea, will give potassium supplement. Patient requested liquid supplement. Will give 20 mEq daily and she will have the BMP in a week. PCP to follow-up. DS: Summary Hospital Course Reason for hospitalization: hypokalemia, bilateral paresthesias lower extremity Hospital Course: patient is a 55-year-old female with past medical history of alcoholism, hypothyroidism, obesity status post gastric sleeve, GERD, anxiety/ depression presents to ED with complaints of paresthesias bilateral lower extremities. She is found to be hypokalemic and hypomagnesemia and hyponatremic. She practiced some risky behavior with her alcoholism for which we have provided resources. Her liked her lytes have been repleted and she is encouraged to have a balanced diet. Sodium levels improved with normal saline. Reiterated the dangers of alcoholism and how it can affect her electrolytes and her overall health. MRIs were obtained of her thoracic and lumbar spine which found moderate thoracic and severe lumbar spondylolysis for which she will need neurosurgery follow-up outpatient as she has maintained anal sphincter tone and can still ambulate on her own without assistance. for transaminitis she had abdominal ultrasound which showed suggest signs of common bile duct dilatation for which she had subsequent MRCP. MRCP showed fatty liver, common bile duct at 7 mm without obstruction, pancreatic cyst which is likely from her alcoholism and repeated episodes of pancreatitis in the past. Recommendations are for 1 year follow-up MRCP. I discussed the findings of her imaging in detail. Her chronic diarrhea there is no infectious etiology identified. This may be a symptom of dumping syndrome from her gastric sleeve surgery. She is encouraged to take fiber supplements, previously tried Metamucil which she did not tolerate. We discussed trying Benefiber this time around. because of her severe hypokalemia she be discharged home with supplement of potassium 20 mEq ramiro
[2021-01-22 12:28] LABS: Osmolality, Urine 226 mOsm/kg (50-1200)
[2021-01-23 10:23] LABS: Vitamin B1 13 nmol/L (8-30)
== END 2021-01-20 17:22 | disposition home or self-care (01) | DRG 425 ==
LOC: ANHED 15:00 → ANH2MED 17:06
PROVIDERS: Admitting Provider Internal Medicine; Emergency Provider Emergency Medicine; PCP Family Medicine; Visit Provider Student in an Organized Health Care Education/Training Program
DX: E87.6 Hypokalemia (principal); E83.42 Hypomagnesemia; E87.1 Hypo-osmolality and hyponatremia; R74.01 Elevation of levels of liver transaminase levels; F10.20 Alcohol dependence, uncomplicated; R20.2 Paresthesia of skin; K91.1 Postgastric surgery syndromes; K52.9 Noninfective gastroenteritis and colitis, unspecified; Z98.84 Bariatric surgery status; M47.816 Spondylosis without myelopathy or radiculopathy, lumbar region; M47.814 Spondylosis without myelopathy or radiculopathy, thoracic region; F41.9 Anxiety disorder, unspecified; F32.9 Major depressive disorder, single episode, unspecified; I10 Essential (primary) hypertension; K21.9 Gastro-esophageal reflux disease without esophagitis; E03.9 Hypothyroidism, unspecified; G25.81 Restless legs syndrome; R32 Unspecified urinary incontinence; Z79.899 Other long term (current) drug therapy
CPT/HCPCS: 36415; 71046; 72157; 72158; 74183; 76376; 76705; 80048; 80053; 80074; 81001; 82570; 82607; 82746; 83690; 83735; 83935; 84100; 84300; 84425; 85025; 85027; 87077; 87086; 87088; 87186; 93005; 96360; 96361; 96365; 96366; 96372; 96374; 96375; 99285; A9270; A9577; G0378; G0379; J0696; J1650; J3411; J3475; J3480; J7030; J7050

== ENCOUNTER 2021-03-09 09:45 | Outpatient (CLI) | payer OTHER, SELFPAY ==
--- NOTE | 2021-03-09 11:30 | NEURO_ITS ---
Impression: # Complains of numbness of legs. # Normal nerve conduction study. # Normal and symmetrical F-waves. # Normal needle/EMG exam. # Clinical correlation recommended. Nerve Conduction Studies Anti Sensory Summary Table Stim Site NR Peak (ms) P-T Amp (?V) Site1 Site2 Delta-P (ms) Dist (cm) Paool (m/s) Left Sup Fibular Anti Sensory (Ant Lat Mall) 14 cm 3.7 15.8 14 cm Ant Lat Mall 3.7 16.0 43 Right Sup Fibular Anti Sensory (Ant Lat Mall) 14 cm 3.4 28.1 14 cm Ant Lat Mall 3.4 16.0 47 Left Sural Anti Sensory (Lat Mall) Calf 3.9 13.1 Calf Lat Mall 3.9 16.0 41 Right Sural Anti Sensory (Lat Mall) Calf 3.6 32.9 Calf Lat Mall 3.6 16.0 44 Motor Summary Table Stim Site NR Onset (ms) O-P Amp (mV) Site1 Site2 Delta-0 (ms) Dist (cm) Paolo (m/s) Left Peroneal Motor (Vastus Med) Ankle 4.8 0.8 Popit Ankle 9.6 39.0 41 Popit 14.4 0.7 Right Peroneal Motor (Vastus Med) Ankle 4.0 1.0 Popit Ankle 9.2 38.0 41 Popit 13.2 0.7 Left Tibial Motor (Abd Starks Brev) Ankle 4.8 6.2 Knee Ankle 10.1 41.0 41 Knee 14.9 2.1 Right Tibial Motor (Abd Starks Brev) Ankle 4.6 5.6 Knee Ankle 9.5 41.0 43 Knee 14.1 3.9 F Wave Studies NR F-Lat (ms) L-R F-Lat (ms) Left Peroneal (Mrkrs) (EDB) 56.14 0.12 Right Peroneal (Mrkrs) (EDB) 56.25 0.12 Left Tibial (Mrkrs) (Abd Hallucis) 57.55 0.24 Right Tibial (Mrkrs) (Abd Hallucis) 57.31 0.24 EMG Side Muscle Nerve Root Ins Act Fibs Amp Dur Recrt Comment Right AntTibialis Dp Br Fibular L4-5 Nml Nml Nml Nml Nml Right Gastroc Tibial S1-2 Nml Nml Nml Nml Nml Right Fibularis Long Sup Br Fibular L5-S1 Nml Nml Nml Nml Nml Right Flex Dig Long Tibial L5-S2 Nml Nml Nml Nml Nml Right Ext Dig Brev Dp Br Fibular L5, S1 Nml Nml Nml Nml Nml Left AntTibialis Dp Br Fibular L4-5 Nml Nml Nml Nml Nml Left Gastroc Tibial S1-2 Nml Nml Nml Nml Nml Left Fibularis Long Sup Br Fibular L5-S1 Nml Nml Nml Nml Nml Left Flex Dig Long Tibial L5-S2 Nml Nml Nml Nml Nml Left Ext Dig Brev Dp Br Fibular L5, S1 Nml Nml Nml Nml Nml Right QuadratusFem QuadFemoris L4-5, S1 Nml Nml Nml Nml Nml Left QuadratusFem QuadFemoris L4-5, S1 Nml Nml Nml Nml Nml MTDD
== END 2021-03-09 09:46 | disposition home or self-care (01) ==
LOC: ANHNEURO 09:47
PROVIDERS: PCP Family Medicine; Visit Provider Psychiatry & Neurology Neurology
DX: G62.9 Polyneuropathy, unspecified (principal)
CPT/HCPCS: 95886; 95910

== ENCOUNTER 2021-05-26 11:51 | Emergency (ER) | payer OTHER, SELFPAY ==
--- NOTE | ~2021-05-26 | XR_ITS ---
EXAMINATION: XR ribs RT 2V w CXR 2V DATE: 05/26/2021 12:47 INDICATION: Right lower rib pain. Fall. TECHNIQUE: Frontal and lateral views of the chest and 2 views on 3 radiographs of the right ribs were obtained. COMPARISON: Chest 2 views 01/18/2021, chest CT 12/29/2016 FINDINGS: CHEST TWO VIEWS: There is chronic mild elevation of right hemidiaphragm. No pleural effusion or pneum othorax. The heart size is normal. RIGHT RIBS: There are fractures of right sixth and seventh ribs. IMPRESSION: 1. Acute fractures of right sixth and seventh ribs. Reviewed, dictated and finalized at location A. 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
[2021-05-26 11:54] VITALS: BP 169/105; PULSE 102; RESP 16; TEMP 36.1; O2SAT 99
--- NOTE | 2021-05-26 13:17 | ED.FALL ---
HPI - Fall General Chief Complaint: Fall <CONSTANTINO Li Last Filed: 05/26/21 13:51> Stated Complaint: fall - rib pain <CONSTANTINO Li Last Filed: 05/26/21 13:51> Time Seen by Provider: 05/26/21 11:58 <CONSTANTINO Li Last Filed: 05/26/21 13:51> Source: patient <CONSTANTINO Li Last Filed: 05/26/21 13:51> Mode of arrival: ambulatory <CONSTANTINO Li Last Filed: 05/26/21 13:51> Limitations: no limitations <CONSTANTINO Li Last Filed: 05/26/21 13:51> History of Present Illness HPI Narrative: This is a 55-year-old female that presents to the emergency department for right-sided rib pain after a fall yesterday. Reports she tripped while getting out of the shower and hit the right side of her ribs on her toilet. Reports since she has had pain and bruising to the area. Pain is worse with movement and deep breathing. Denies fever, cough, or shortness of breath. <CONSTANTINO Li Last Filed: 05/26/21 13:51> Related Data Home Medications: Home Medications Medication Instructions Recorded Confirmed cyclobenzaprine 5 mg PO DAILY PRN 01/18/21 02/24/21 levothyroxine [Levoxyl] 25 mcg PO DAILY 01/18/21 02/24/21 ondansetron 8 mg PO BIDWMEAL 01/18/21 02/24/21 <CONSTANTINO Li Last Filed: 05/26/21 13:51> Allergies/Adverse Reactions: Allergies Allergy/AdvReac Type Severity Reaction Status Date / Time sibutramine Allergy Mild Rash Verified 02/24/21 15:22 amitriptyline Allergy Unknown Seizure Verified 02/24/21 15:22 carbamazepine Allergy Unknown Unknown Verified 02/24/21 15:22 <CONSTANTINO Li Last Filed: 05/26/21 13:51> Review of Systems Review of Systems: CONSTITUTIONAL: Denies fever CARDIOVASCULAR: Reports chest/rib pain RESPIRATORY: Denies cough or dyspnea. <Shahida Valdez PA-C - Last Filed: 05/26/21 13:51> All systems reviewed & are unremarkable except as noted in HPI and below <Shahida Valdez PA-C - Last Filed: 05/26/21 13:51> FOR[facility], LAT[facility] Past Medical History Medical History: Medical History Alcoholism Anxiety and depression Chronic diarrhea Essential hypertension GERD (gastroesophageal reflux disease) Hypothyroidism Obstructive sleep apnea resolved after weight loss surgery <Shahida Valdez PA-C - Last Filed: 05/26/21 13:51> Surgical History Surgical History: Surgical History History of carpal tunnel release (~2006) right History of hysterectomy for benign disease (~2008) History of right knee joint replacement (~2014) History of right oophorectomy (~2008) Status post laparoscopic sleeve gastrectomy (~2016) preop weight 330 lb <Shahida Valdez PA-C - Last Filed: 05/26/21 13:51> Family History Family History: Family History Father Hypertension Malignant neoplasm of prostate Mother Heart disease IBS (irritable bowel syndrome) Son Crohn's disease Other Carcinoma of colon Depression <Shahida Valdez PA-C - Last Filed: 05/26/21 13:51> Social History Social History: Social History Social History: she lives at home with her small dog. She has been since 2019. She has smoked a half a pack of cigarettes per day for approximately 30 years. she has a complicated history with alcohol abuse. She used to drink quite heavily and then quit drinking for several years but when her became ill in 2018 she started drinking heavily again. She drinks approximately 6 mixed drinks a day. 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 She has 1 son. Primary care physician: Dr. Patricio Atkinson Smoking packs per day: 0.5 Smoking cigarettes per day: 10.0 Years smoked: 30 Smoking pack-ye
== END 2021-05-26 14:41 | disposition home or self-care (01) ==
PROVIDERS: Emergency Provider Emergency Medicine; PCP Family Medicine
DX: S22.41XA Multiple fractures of ribs, right side, initial encounter for closed fracture (principal); I10 Essential (primary) hypertension; E03.9 Hypothyroidism, unspecified; F17.210 Nicotine dependence, cigarettes, uncomplicated; W01.198A Fall on same level from slipping, tripping and stumbling with subsequent striking against other object, initial encounter
CPT/HCPCS: 71046; 71100; 99283

== ENCOUNTER 2021-07-02 08:12 | Outpatient (CLI) | payer OTHER, SELFPAY ==
--- NOTE | ~2021-07-02 | MR_ITS ---
EXAMINATION: MR thoracic spine wo con EXAM DATE: 07/02/2021 08:58 INDICATION: Radiculopathy;Mid Back Pain. TECHNIQUE: Multi-sequential, multiplanar MR images of the thoracic spine were obtained without contra st. Sagittal T1, T2, T2 fat saturation, axial T2 weighted images reviewed. Comparison is made to clau or examination from 01/19/2021. FINDINGS: There is mild to moderate diffuse mid thoracic disc disease. The vertebral body heights jim ear maintained. The vertebral bodies are aligned in the AP dimension. The spinal cord signal intensit y and intrinsic morphology is normal. The disks appear confined to their margins. There is no central canal or neural foraminal stenosis. Mild diffuse thoracic facet arthropathy. Paraspinal soft tissue is unremarkable. Minimal thoracic scoliosis. IMPRESSION: Mild to moderate thoracic disc disease, mild arthropathy. No stenosis. Reviewed, dictated and finalized at location A. E ALIGNER IMPRESSION: Mild to moderate thoracic disc disease, mild arthropathy. No steno sis.
== END 2021-07-02 08:13 | disposition home or self-care (01) ==
LOC: ANHIMG 08:14
PROVIDERS: PCP Family Medicine; Visit Provider Nurse Practitioner Family
DX: M54.6 Pain in thoracic spine (principal); M51.84 Other intervertebral disc disorders, thoracic region; M12.88 Other specific arthropathies, not elsewhere classified, other specified site
CPT/HCPCS: 72146

== ENCOUNTER 2021-08-18 14:00 | Outpatient (CLI) | payer OTHER, SELFPAY ==
--- NOTE | ~2021-08-18 | MR_ITS ---
EXAMINATION: MR cervical spine wo con DATE: 08/18/2021 15:03 INDICATION: Disease of spinal cord, unspecified. Gait abnormality. Chronic neck pain. TECHNIQUE: Magnetic resonance imaging (MRI) of the cervical spine was performed without intravenous c ontrast. Sequences included sagittal T2-weighted FSE, sagittal T2-weighted FS FSE, sagittal T1-weight ed FSE, axial MERGE, and axial T2-weighted FSE. COMPARISON: Cervical spine MRI 05/10/2008 FINDINGS: There is 2 mm retrolisthesis of C4 on C5. There is mild chronic anterior wedging of C4, C5, and C6 vertebral bodies. There is moderately decreased disc height at C4-C5 and C5-C6 and mildly dec reased disc height at C6-C7. The spinal cord signal intensity is normal. The following disc levels ar e specifically discussed: C2-C3: The disc does not extend beyond the endplate margin. There is no uncovertebral joint osteoarth ritis. There is mild bilateral facet joint osteoarthritis. There is no neural foraminal stenosis. The re is no central canal stenosis. C3-C4: There is a central extrusion. There is no uncovertebral joint osteoarthritis. There is mild bi lateral facet joint osteoarthritis. There is no neural foraminal stenosis. There is no central canal stenosis. C4-C5: The disc is bulging. There is severe bilateral uncovertebral joint osteoarthritis. There is mo derate bilateral facet joint osteoarthritis. There is moderate right and mild left neural foraminal s tenosis. There is mild central canal stenosis. C5-C6: The disc is bulging. There is severe right and moderate left uncovertebral joint osteoarthriti s. There is mild right and moderate left facet joint osteoarthritis. There is moderate right and mild left neural foraminal stenosis. There is mild central canal stenosis. C6-C7: The disc is bulging. There is mild bilateral uncovertebral joint osteoarthritis. There is mild bilateral facet joint osteoarthritis. There is mild left neural foraminal stenosis. There is mild ce ntral canal stenosis. C7-T1: The disc does not extend beyond the endplate margin. There is no uncovertebral joint osteoarth ritis. There is severe right and moderate left facet joint osteoarthritis. There is mild right neural foraminal stenosis. There is no central canal stenosis. IMPRESSION: 1. Moderate cervical spondylosis. Reviewed, dictated and finalized at location A. [employer]
== END 2021-08-18 14:01 | disposition home or self-care (01) ==
LOC: ANHIMG 14:03
PROVIDERS: PCP Family Medicine; Visit Provider Nurse Practitioner Family
DX: M54.2 Cervicalgia (principal); M47.812 Spondylosis without myelopathy or radiculopathy, cervical region
CPT/HCPCS: 72141

== ENCOUNTER 2021-11-17 17:27 | Emergency (ER) | payer OTHER, SELFPAY ==
[2021-11-17] VITALS (11 sets, daily range): BP systolic 132–158; BP diastolic 94–121; PULSE 80–106; RESP 11–24; TEMP 36.4; O2SAT 95–99
--- NOTE | ~2021-11-17 | CT_ITS ---
EXAMINATION: CTA chest PE protocol DATE: 11/17/2021 21:51 INDICATION: Left-sided chest pain TECHNIQUE: Computed tomography angiography (CTA) of the chest was performed with 100 mL Omnipaque-350 intravenous contrast timed to evaluate the pulmonary arteries. Coronal maximum intensity projection 3D-reconstructions were created by the technologist. The dose-length product (DLP) was 442.78 mGy-cm. Automated exposure control and iterative reconstruction technique were employed. COMPARISON: None. FINDINGS: The pulmonary arteries are well-opacified. No pulmonary embolism is identified. The lungs a re free of acute opacities. There is no pleural effusion or pneumothorax. There is a small sliding hi atal hernia. No pathologically enlarged thoracic lymph nodes are identified. The heart size is normal . Surgical changes in the stomach are consistent with weight loss surgery. There are healed right-alfredo ed rib fractures. There is mild thoracic spondylosis. IMPRESSION: 1. No pulmonary embolism or acute cardiopulmonary abnormality. Reviewed, dictated and finalized at location F.
--- NOTE | ~2021-11-17 | XR_ITS ---
EXAMINATION: XR chest 2V DATE: 11/17/2021 18:30 INDICATION: Chest pain TECHNIQUE: PA and lateral views of the chest are obtained. COMPARISON: 06/05/2021 FINDINGS: The lungs are free of acute opacities. There is no pleural effusion or pneumothorax. The ca rdiomediastinal silhouette is normal. There is moderate thoracic spondylosis. IMPRESSION: 1. No acute cardiopulmonary abnormality. Reviewed, dictated and finalized at location F.
--- NOTE | 2021-11-17 18:05 | ECG_ITS ---
Measurements Intervals [place] Rate: 97 P: 26 VA: 165 QRS: -23 QRSD: 88 T: 31 QT: 353 QTc: 449 Interpretive Statements SINUS RHYTHM POSSIBLE ANTERIOR MYOCARDIAL INFARCTION , OLD Electronically Signed On 11-17-2021 21:44:02 CDT by Rolly Lala M.D.
[2021-11-17 18:25] LABS: Basophils Absolute Auto 0.1 K/mm3 (0.0-0.1); Basophils Percent Auto 0.9 % (0.2-1.2); Eosinophils Percent Auto 0.4 % (0-4.4); Hematocrit 42.9 % (37.0-47.0); Hemoglobin 14.9 g/dL (12.0-15.0); Immature Granulocyte Absolute 0.02 K/mm3 (0.00-0.031); Immature Granulocyte Percent A 0.3 % (0-0.5); Lymphocytes Percent Auto 31.5 % (18.3-44.2); Mean Corpuscular HGB Conc 34.7 g/dl (32-36); Mean Corpuscular Hemoglobin 36.6 pg (26-34); Mean Corpuscular Volume 105.4 fl (80-100); Mean Platelet Volume 9.7 fl (7.4-10.4); Monocytes Absolute Auto 0.5 K/mm3 (0.1-0.6); Neutrophils Percent Auto 59.9 % (45.5-73.1); Platelet Count Result 177 k/mm3 (150-375); Red Blood Count 4.07 M/mm3 (4.2-5.4); Red Cell Distribution Width 13.5 % (11.5-14.5); White Blood Count 6.7 K/mm3 (4.5-10.0)
[2021-11-17 18:36] LABS: Alanine Aminotransferase 42 U/L (6-35); Alkaline Phosphatase 94 U/L (38-126); Anion Gap 9 mmol/L (8-16); Aspartate Amino Transferase 74 U/L (14-36); Bilirubin,Total 0.5 mg/dL (0.2-1.3); Blood Urea Nitrogen 15 mg/dL (7-17); Calcium 9.4 mg/dL (8.4-10.2); Carbon Dioxide 24 mmol/L (22-30); Chloride 103 mmol/L (98-107); Estimated CRCL calculation 80 ml/min; Estimated Glomerular Filt Rate > 60; Glucose 83 mg/dL (65-110); Lipase 35 U/L (23-300); Potassium 4.2 mmol/L (3.4-5.0); Sodium 136 mmol/L (137-145)
[2021-11-17 18:46] LABS: Troponin I < 0.012 ng/mL (0.000-0.034)
[2021-11-17 18:52] LABS: Prothrombin Time 12.5 Seconds (11.1-14.7)
[2021-11-17 19:02] LABS: Partial Thromboplastin Time 25.9 SECONDS (22.3-36.8)
--- NOTE | 2021-11-17 20:32 | ED.CHESTPAIN ---
HPI - Chest Pain General Chief Complaint: Chest Pain Stated Complaint: chest pain Time Seen by Provider: 11/17/21 20:21 Source: patient Mode of arrival: ambulatory Limitations: no limitations History of Present Illness HPI narrative: This is a 56 year old female who presents for evaluation of left chest pain. PAtient has been having left chest pain for 2 weeks. Her pain is located under her left breast. She reports her pain is worse with movement, coughing and hiccups. She denies any injury or trauma. She also reports some dizziness for 2 weeks. SHe denies cough, fever, nausea, vomiting, diarrhea, abdominal pain . Patient has wound to right knee from a skin procedure. She has been taking tylenol for her pain. She reports she came to ER because her pain was getting worse. Related Data Home Medications Medication Instructions Recorded Confirmed cyclobenzaprine 5 mg tablet 5 mg PO DAILY PRN Anxiety 01/18/21 06/02/21 levothyroxine 25 mcg tablet 25 mcg PO DAILY 01/18/21 06/02/21 (Levoxyl) ondansetron 8 mg disintegrating 8 mg PO BIDWMEAL 01/18/21 06/02/21 tablet Allergies Allergy/AdvReac Type Severity Reaction Status Date / Time sibutramine Allergy Mild Rash Verified 06/02/21 15:02 amitriptyline Allergy Unknown Seizure Verified 06/02/21 15:02 carbamazepine Allergy Unknown Unknown Verified 06/02/21 15:02 Review of Systems Review of Systems: All systems reviewed & are unremarkable except as noted in HPI and below Constitutional: Constitutional: Denies chills, Reports fatigue, Denies fever(s) and Reports weakness ENT: Reports dizziness Cardiovascular: Cardiovascular: Reports chest pain Respiratory: Respiratory: Denies chest congestion and Reports dyspnea Gastrointestinal: Gastrointestinal: Denies abdominal pain, Denies diarrhea, Denies nausea and Denies vomiting Neurologic: Reports dizziness, Denies headache(s) and Denies focal weakness PMF Past Medical History Medical History Alcoholism Anxiety and depression Chronic diarrhea Essential hypertension GERD (gastroesophageal reflux disease) Hypothyroidism Obstructive sleep apnea resolved after weight loss surgery Surgical History Surgical History History of carpal tunnel release (~2006) right History of hysterectomy for benign disease (~2008) History of right knee joint replacement (~2014) History of right oophorectomy (~2008) Status post laparoscopic sleeve gastrectomy (~2016) preop weight 330 lb Family History Family History Father Hypertension Malignant neoplasm of prostate Mother Heart disease IBS (irritable bowel syndrome) Son Crohn's disease Other Carcinoma of colon Depression Social History Social History Social History: she lives at home with her small dog. She has been since 2019. She has smoked a half a pack of cigarettes per day for approximately 30 years. she has a complicated history with alcohol abuse. She used to drink quite heavily and then quit drinking for several years but when her became ill in 2018 she started drinking heavily again. She drinks approximately 6 mixed drinks a day. 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 She has 1 son. Primary care physician: Dr. Patricio Atkinson Smoking packs per day: 0.5 Smoking cigarettes per day: 10.0 Years smoked: 30 Smoking pack-years: 15.00 Smoking status: Current every day smoker Tobacco type: cigarettes Second hand tobacco smoke exposure: Yes Alcohol intake: current Drinks per week: 20 Substance use: former Gender identity (if verbalized by the patient): Female Spiritual care concerns: No Exam Narrative: GENERAL: Well-appearing, well-nou
[2021-11-17 21:22] LABS: D Dimer 0.51 ug/mL (<0.48)
[2021-11-17] MEDS: SODIUM CHLORIDE 0.9% IV 1,000 ML 999 ML IV CONT (21:26)
[2021-11-17 21:43] LABS: Troponin I < 0.012 ng/mL (0.000-0.034)
[2021-11-17 21:49] LABS: Appearance Urine Cloudy (Clear); Bilirubin Urine 1+ (Negative); Blood Urine Negative (Negative); Color Urine Yellow (Yellow); Glucose Urine UA Negative (Negative); Ketones Urine 1+ mg/dL (Negative); Leukocyte Esterase Ur 1+ LEU/UL (Negative); Nitrate Urine Positive (Negative); Protein Urine Negative (Negative); Urobilinogen Urine 0.2 mg/dL (<2.0)
[2021-11-17 21:57] LABS: Add Urine Microscopic? YES; Bacteria Urine 1+ /hpf; Mucus Urine Rare /lpf; Squamous Epithelial Cell Urine Many /hpf (Few); WBC Urine 31-50 /hpf
== END 2021-11-17 23:12 | disposition home or self-care (01) ==
PROVIDERS: Emergency Medicine; Emergency Provider General Practice; PCP Family Medicine
DX: R07.9 Chest pain, unspecified (principal); N39.0 Urinary tract infection, site not specified; I10 Essential (primary) hypertension; E03.9 Hypothyroidism, unspecified; K21.9 Gastro-esophageal reflux disease without esophagitis; G47.33 Obstructive sleep apnea (adult) (pediatric); Z96.651 Presence of right artificial knee joint; Z98.84 Bariatric surgery status; F17.210 Nicotine dependence, cigarettes, uncomplicated; R94.31 Abnormal electrocardiogram [ECG] [EKG]
CPT/HCPCS: 36415; 71046; 71275; 80053; 81001; 83690; 84484; 85025; 85380; 85610; 85730; 87077; 87086; 87088; 87186; 93005; 96361; 96365; 99284; J0696; J7030; Q9967

== ENCOUNTER 2021-12-08 10:01 | Outpatient (CLI) | payer OTHER, SELFPAY ==
--- NOTE | 2021-12-08 11:00 | NEURO_ITS ---
Impression: # Complains of upper extremity and neck pain. # No Carpal Tunnel Syndrome or ulnar neuropathy. # Normal needle/EMG exam. 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 # Clinical correlation recommended. Nerve Conduction Studies Anti Sensory Summary Table Stim Site NR Peak (ms) P-T Amp (?V) Site1 Site2 Delta-P (ms) Dist (cm) Paolo (m/s) Left Median Anti Sensory (2-3nd Digit) Wrist 3.0 90.0 Wrist 2-3nd Digit 3.0 14.0 47 Wrist 3.1 65.1 Wrist 2-3nd Digit 3.0 14.0 47 Right Median Anti Sensory (2-3nd Digit) Wrist 2.9 48.9 Wrist 2-3nd Digit 2.9 14.0 48 Wrist 3.0 57.0 Wrist 2-3nd Digit 2.9 14.0 48 Left Radial Anti Sensory (Base 1st Digit) Wrist 1.9 15.1 Wrist Base 1st Digit 1.9 0.0 Right Radial Anti Sensory (Base 1st Digit) Wrist 2.2 18.9 Wrist Base 1st Digit 2.2 0.0 Left Ulnar Anti Sensory (5th Digit) Wrist 2.5 72.7 Wrist 5th Digit 2.5 14.0 56 Right Ulnar Anti Sensory (5th Digit) Wrist 2.3 72.4 Wrist 5th Digit 2.3 14.0 61 Motor Summary Table Stim Site NR Onset (ms) O-P Amp (mV) Site1 Site2 Delta-0 (ms) Dist (cm) Paolo (m/s) Left Median Motor (Abd Poll Brev) Wrist 3.6 1.8 Elbow Wrist 5.2 31.0 60 Elbow 8.8 2.2 Right Median Motor (Abd Poll Brev) Wrist 3.0 4.8 Elbow Wrist 6.0 29.0 48 Elbow 9.0 2.3 Left Ulnar Motor (Abd Dig Minimi) Wrist 2.4 5.1 A Elbow Wrist 4.9 29.0 59 A Elbow 7.3 4.5 Right Ulnar Motor (Abd Dig Minimi) Wrist 2.2 6.2 A Elbow Wrist 5.1 28.0 55 A Elbow 7.3 5.1 F Wave Studies NR F-Lat (ms) L-R F-Lat (ms) Left Median (Mrkrs) (Abd Poll Brev) 30.06 0.06 Right Median (Mrkrs) (Abd Poll Brev) 30.00 0.06 Left Ulnar (Mrkrs) (Abd Dig Min) 28.28 0.90 Right Ulnar (Mrkrs) (Abd Dig Min) 29.18 0.90 EMG Side Muscle Nerve Root Ins Act Fibs Amp Dur Recrt Comment Right 1stDorInt Ulnar C8-T1 Nml Nml Nml Nml Nml Right Ext Indicis Radial (Post Int) C7-8 Nml Nml Nml Nml Nml Right Ext Digitorum Radial (Post Int) C7-8 Nml Nml Nml Nml Nml Right BrachioRad Radial C5-6 Nml Nml Nml Nml Nml Right PronatorTeres Median C6-7 Nml Nml Nml Nml Nml Right Abd Poll Brev Median C8-T1 Nml Nml Nml Nml Nml Left 1stDorInt Ulnar C8-T1 Nml Nml Nml Nml Nml Left Ext Indicis Radial (Post Int) C7-8 Nml Nml Nml Nml Nml Left Ext Digitorum Radial (Post Int) C7-8 Nml Nml Nml Nml Nml Left BrachioRad Radial C5-6 Nml Nml Nml Nml Nml Left PronatorTeres Median C6-7 Nml Nml Nml Nml Nml Left Abd Poll Brev Median C8-T1 Nml Nml Nml Nml Nml MTDD
== END 2021-12-08 10:02 | disposition home or self-care (01) ==
LOC: ANHNEURO 10:03
PROVIDERS: PCP Family Medicine; Visit Provider Nurse Practitioner Family
DX: M79.603 Pain in arm, unspecified (principal)
CPT/HCPCS: 95886; 95911

== ENCOUNTER 2022-01-26 11:12 | Outpatient (CLI) | payer OTHER, SELFPAY ==
--- NOTE | ~2022-01-26 | XR_ITS ---
EXAMINATION: XR chest 2V 01/26/2022 11:31 INDICATION: Chronic productive cough PROCEDURE: PA and lateral views of the chest COMPARISON: Comparison to multiple prior studies sequentially, with oldest reviewed study dated 08/2011. FINDINGS: The lungs are clear. The cardiomediastinal silhouette is within normal limits. There are no pleural effusions. There is no pneumothorax suspected. IMPRESSION: 1: NO ACUTE CARDIOPULMONARY DISEASE. Reviewed, dictated and finalized at location A.
== END 2022-01-26 11:13 | disposition home or self-care (01) ==
PROVIDERS: PCP Family Medicine; Visit Provider Family Medicine
DX: R05.3 Chronic cough (principal)
CPT/HCPCS: 71046

== ENCOUNTER 2022-09-01 13:04 | Outpatient (CLI) | payer OTHER, SELFPAY ==
[2022-09-01 17:42] LABS: Free T4 Free Thyroxine 1.08 ng/mL (0.78-2.19)
[2022-09-05 04:14] LABS: Thyroid Peroxidase Antibodies 6711 IU/mL (<9)
== END 2022-09-01 13:05 | disposition home or self-care (01) ==
LOC: ANHWCLAB 13:06
PROVIDERS: PCP Family Medicine; Visit Provider Internal Medicine
DX: E03.9 Hypothyroidism, unspecified (principal)
CPT/HCPCS: 36415; 84439; 84443; 86376

== ENCOUNTER 2023-02-10 12:38 | Outpatient (CLI) | payer OTHER, SELFPAY ==
--- NOTE | 2023-02-10 15:18 | WPDPFTINT ---
PFT Procedure Performed PFT Procedure Performed Spirometry with Pre/Post Bronchodilator Plethysmography (Lung Vol) Diffusing Cap (DLCO) Flow Vol Loop PFT Interpretation This is a pulmonary function test with pre and post-bronchodilator spirometry, plethysmography and diffusing capacity. The test was performed and results interpreted in accordance with the 2019 and 2005 ATS/ERS Task Force guidelines respectively using the Global Lung Function Initiative-2012 reference equations. Patient demonstrated good effort and cooperation. Reproducibility criteria were met. The quality of the pre bronchodilator spirometry maneuver was Grade A and post bronchodilator spirometry maneuver was Grade A. Findings: Spirometry: The contour of the pre bronchodilator expiratory flow tracing demonstrates a mid expiratory plateau or knee pattern in 2 of the 3 pre bronchodilator efforts and 2 of the 3 post bronchodilator efforts. The contour the inspiratory flow tracing is normal. The pre bronchodilator FVC is 3.61 L, 100% predicted. The pre bronchodilator FEV1 is 2.75 L, 97% predicted. The pre bronchodilator FEV1: FVC ratio 76%. The post bronchodilator FVC is 3.88 L, representing a 8% increase. The post bronchodilator FEV1 is 3.17 L, representing a 15% increase. The pre bronchodilator FEV1: FVC ratio is 82%. Plethysmography: The total lung capacity is 4.86 L, 88% predicted. The functional residual capacity is 1.61 L, 52% predicted. The residual volume is 0.95 L, 46% predicted. Diffusing capacity: The diffusing capacity unadjusted for hemoglobin and carboxyhemoglobin is 18.9, 82% predicted. The diffusing capacity adjusted for alveolar volume is 3.82, 88% predicted. Impression: The knee pattern can be a normal variant or pathologic and has been attributed to a choke point section of the bronchial tree. The normal variant is more common in younger female patients, decreases with age and is more pronounced in the post bronchodilator efforts. The pattern has also been described with kyphosis, kyphoscoliosis, central obstructing mass, and post lung transplantation. Clinical correlation is recommended. Otherwise, the spirometry is normal without evidence of an obstructive abnormality. There is significant improvement after inhaling a single dose of albuterol. The total lung capacity is normal with a decreased functional residual capacity and residual volume. This is an abnormal but nonspecific lung volume pattern. The diffusing capacity is normal. There are no prior studies for comparison
== END 2023-02-10 12:39 | disposition home or self-care (01) ==
LOC: ANHPFT 12:38
PROVIDERS: PCP Family Medicine; Visit Provider Family Medicine
DX: R05.3 Chronic cough (principal)
CPT/HCPCS: 94060; 94375; 94726; 94729

== ENCOUNTER 2024-02-15 10:50 | Outpatient (CLI) | payer OTHER, SELFPAY ==
--- NOTE | ~2024-02-15 | CT_ITS ---
CT Scan of the Chest without Contrast: Clinical Indication: Lung cancer screening, nicotine dependence Technique: Contiguous sections were acquired throughout the chest without intravenous contrast. Dose reduction technique was used on this scan by utilizing automated exposure control and iterative recon struction technique. The dose-length product (DLP) was 163.27 mGy-cm. COMPARISON: 11/17/2021 Findings: There is no evidence of any significant mediastinal, hilar or axillary lymphadenopathy. Coronary dina ry calcifications are noted. There is no evidence of pleural or pericardial effusion. The lungs are clear. No pulmonary nodules or infiltrates are noted. Images through the upper abdomen reveal no abnormalities. Impression: Lung RADS 1: Negative. 12 month follow-up screening CT advised. Reviewed, dictated and finalized at location . Impression: Lung RADS 1: Negative. 12 month follow-up screening CT advised.
== END 2024-02-15 10:51 | disposition home or self-care (01) ==
PROVIDERS: PCP Family Medicine; Visit Provider Physician Assistant Medical
DX: Z12.2 Encounter for screening for malignant neoplasm of respiratory organs (principal); Z87.891 Personal history of nicotine dependence
CPT/HCPCS: 71271

== ENCOUNTER 2024-02-27 10:29 | Outpatient (CLI) | payer OTHER, SELFPAY ==
--- NOTE | ~2024-02-27 | US_ITS ---
EXAMINATION: US thyroid DATE: 02/27/2024 11:00 INDICATION: Goiter. TECHNIQUE: Multiple ultrasound images of the thyroid were obtained. COMPARISON: None. FINDINGS: The right thyroid lobe measures 2.2 x 2.3 x 5.6 cm. The left thyroid lobe measures 2.1 x 2.4 x 5.4 c m. The thyroid is diffusely heterogeneous and hypoechoic with increased vascularity. No discrete nod ule. IMPRESSION: 1. Heterogeneous, hypervascular thyroid, consistent with chronic lymphocytic (Eulalia's) thyroiditi s. Reviewed, dictated and finalized at location A. IMPRESSION: 1. Heterogeneous, hypervascular thyroid, consistent with chronic lymphocytic (H ashimoto's) thyroiditis.
== END 2024-02-27 10:30 | disposition home or self-care (01) ==
PROVIDERS: PCP Family Medicine; Visit Provider Internal Medicine
DX: E03.9 Hypothyroidism, unspecified (principal); E04.9 Nontoxic goiter, unspecified
CPT/HCPCS: 76536

== ENCOUNTER 2024-03-13 10:23 | Outpatient (CLI) | payer OTHER, SELFPAY ==
--- NOTE | ~2024-03-13 | MR_ITS ---
MRI of the cervical spine Clinical History: Cervicalgia Technique: Axial T2-weighted and gradient images, and sagittal T1-weighted, T2-weighted, and STIR nayan ges were acquired. COMPARISON: 08/18/2021 Findings: There is no fracture or acute subluxation of the cervical spine. Stable minimal grade 1 ret rolisthesis of C4 over C5, and C5 over C6. Osseous alignment is unchanged. No suspicious bone marrow signal abnormality seen. At C2-C3, there is no disc bulge or herniation. No spinal canal stenosis, cord compression, or neural foraminal narrowing. At C3-C4, there is no disc bulge or herniation. No spinal canal stenosis, cord compression, or neural foraminal narrowing. At C4-C5, there is degenerative disc narrowing with mild disc osteophyte complex. There is minimal ca nal stenosis without jad cord compression. There is right neural foraminal narrowing. Left neural f oramen preserved. At C5-C6, there is degenerative disc narrowing with mild disc bulge and minimal canal stenosis but no jad cord compression. There is bilateral neural foraminal narrowing, right worse than left. At C6-C7, there is minimal disc bulge. No canal stenosis or cord compression. Probable mild left neur al foraminal narrowing. Right neural foramen preserved. No abnormal signal seen in the spinal cord. Paravertebral soft tissues are unremarkable. Impression: Moderate degenerative spondylosis, as above, especially at C4-C5 and C5-C6. Reviewed, dictated and finalized at [facility]. Impression: Moderate degenerative spondylosis, as above, especially at C4-C5 and C5-C6.
== END 2024-03-13 10:24 | disposition home or self-care (01) ==
LOC: ANHIMG 10:24
PROVIDERS: PCP Family Medicine; Visit Provider Nurse Practitioner Family
DX: M47.892 Other spondylosis, cervical region (principal)
CPT/HCPCS: 72141

== ENCOUNTER 2024-03-29 13:45 | Outpatient (CLI) | payer OTHER, SELFPAY ==
--- NOTE | ~2024-03-29 | DEXA_ITS ---
Bone Density Report Name: CIARA JASMINE Age: 58 Sex: Female Ethnicity: White Date of : 1965 Indication: hyperparathyroidism; parental hip fracture; height loss; hysterectomy; Referring Provider: BALDEMAR, VIDA Amado Study: Bone densitometry was performed. Exam Date: March 29, 2024 Accession number: [id number] Bone Density: Region BMD T-score Z-score Classification AP Spine(L2, L3, L4) 1.075 0.0 1.3 Normal Femoral Neck (Left) 0.872 0.2 1.4 Normal Total Hip (Left) 1.071 1.1 1.9 Normal Femoral Neck (Right) 0.610 -2.2 -0.9 Osteopenia Total Hip (Right) 1.116 1.4 2.3 Normal Total Hip Mean 1.093 1.3 2.1 Normal World Health Organization criteria for BMD impression classify patients as: Normal (T-score at or above -1.0), Osteopenia (T-score between -1.0 and -2.5), or Osteoporosis (T-score at or below -2.5). 10-year Fracture Risk: FRAX not reported because: Treated for osteoporosis Clinical Information Provided by Patient: Parent has had a hip fracture Smokes Is being treated for osteoporosis Has used the following medications: Vitamin D Has the following medical conditions: Hyperparathyroidism, Hysterectomy, parcitalhystro Patient maximum height was 68 Menopause Age: 37 Drinks caffeinated beverages Onset of menses at age 13 Number of children 1 Impression: The patient has low bone mass, based on the Right Femoral Neck T-score. The patient has risk factors, including: parental hip fracture, smoking. Discussion: It is important to ask patients whether they are taking their medications and to encourage continued and appropriate compliance with their osteoporosis therapies to reduce fracture risk. It is also important to review their risk factors and encourage appropriate calcium and vitamin D intakes, exercise, fall prevention and other lifestyle measures. Follow-Up: Consider a repeat BMD and Vertebral Fracture Assessment (VFA) exam in 2 years or sooner if medically necessary, to reassess this patient's status. Reported by: GRACIELA on 03/29/2024 2:30:00 PM. Reviewed, dictated and finalized at location A. ABHIJIT
--- NOTE | ~2024-03-29 | MM_ITS ---
EXAMINATION: MM screening opal BI w chiquita HISTORY: Screening TECHNIQUE: Craniocaudal and mediolateral oblique 3-D tomosynthesis images were obtained and synthetic 2-D images were generated. CAD analysis was submitted and interpreted. COMPARISON: Comparison to multiple prior studies sequentially, with oldest reviewed study dated 11/04. BREAST PARENCHYMAL COMPOSITION: Not dense: There are scattered areas of fibroglandular density. FINDINGS: There is no evidence of suspicious mass, calcification, or architectural distortion to sugg est malignancy in either breast. There has been no suspicious interval change. IMPRESSION: 1. No mammographic evidence of malignancy. 2. Recommend routine screening mammography in one year. BI-RADS Category 1: Negative Reviewed, dictated and finalized at location B.
== END 2024-03-29 13:46 | disposition home or self-care (01) ==
LOC: ANHIMG 13:46
PROVIDERS: PCP Family Medicine; Visit Provider Physician Assistant
DX: Z12.31 Encounter for screening mammogram for malignant neoplasm of breast (principal); M85.851 Other specified disorders of bone density and structure, right thigh; Z78.0 Asymptomatic menopausal state
CPT/HCPCS: 77063; 77067; 77080

== ENCOUNTER 2024-11-27 09:50 | Outpatient (CLI) | payer OTHER, SELFPAY ==
--- NOTE | ~2024-11-27 | MR_ITS ---
MRI of the lumbar spine Clinical History: Back pain Technique: Axial T2-weighted images, and sagittal T1-weighted, T2-weighted, and and T2 fat-sat images were acquired. Findings: No fracture. There is minimal grade 1 retrolisthesis of L2 over L3. No suspicious bone nate ow signal abnormality seen. At L1-L2, there is moderate degenerative distended. There is diffuse disc bulge with superimposed lef t paracentral protrusion. There is moderate facet arthropathy. There is mild central canal stenosis. There is mild to moderate right neural foraminal narrowing. Left neural foramen is minimally narrowed . At L2-L3, there is diffuse disc bulge with moderate to advanced facet arthropathy. There is mild to m oderate central canal stenosis. Neural foramina are preserved. At L3-L4, there is minimal disc bulge with moderate to advanced facet arthropathy. There is moderate central canal stenosis. There is mild left neural foraminal narrowing. Right neural foramen preserved . At L4-L5, there is diffuse disc bulge with moderate to advanced facet arthropathy. No central canal s tenosis. Neural foramina are preserved. At L5-S1, there is advanced degenerative disc narrowing. There is diffuse disc bulge with mild facet arthropathy. No central canal stenosis. Neural foramina are minimally narrowed. Paravertebral soft tissues are unremarkable. Impression: Moderate to advanced degenerative spondylosis overall. Please see details above. Reviewed, dictated and finalized at [facility]. Impression: Moderate to advanced degenerative spondylosis overall. Please see details above .
--- OUTSIDE RECORDS SUMMARY | 2024-11-27 11:07 | XMS_ITS | Encounter Summary ---
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 Name Role Phone Caden Hwang MD Primary Care Provider [phone] Miscellaneous, Not In File Primary Care Provider Unavailable Brittney Arredondo MD Primary Care Provider [phone] Miscellaneous, Not In File Unavailable Unava ilable Caden Hwang MD Unavailable [phone] Unknown, Notinfile Primary Care Provider Unavail able Judith Lo MD Primary Care Provider [phone] Kaleb Atkinson MD Primary Care Provider [phone] Kristyn Champagne MD Primary Care Provider [phone] Peggy Ybarra DPM Unavailable [phone] Encounter Details Date Type Department Care Team (Latest Contact Info) Description 04/27/2016 Orders Only [facility] CLINCONV ProviderMono MD [address] [place] [id number] Social History Tobacco Use Types Packs/Day Years Used Date Smoking Tobacco: Never Assessed Comments Unknown Sex and Gender Information Value Date Recorded Sex Assigned at Not on file Legal 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 us Historical Provider Final Res ult documented in this encounter Visit Diagnoses Not on filedocumented in this encounter Care Teams Platen Press Operator Relationship Specialty Start Date End Date Caden Hwang MD [address] [address] PCP - General 01/31/14 09/18/16 Miscellaneous, Not In File PCP - General 09/19/16 10/04/16 Brittney Arredondo MD [address] [place] [id number] PCP - General 10/05/16 01/30/17 Unknown, Notinfile PCP - General 01/31/17 09/14/17 Judith Lo MD PCP - General 09/15/17 11/30/20 Kaleb Atkinson MD PCP - General Family Medicine 12/01/20 11/12/24 Kristyn Champagne MD [address] [place] [address] [place] [address] PCP - General Family Medicine 11/13/24 Miscellaneous, Not In File 10/05/16 Caden Hwang MD [address] [address] 09/19/16 10/04/16 Peggy Ybarra, TINO [address] [place] [address] Consulting Physician Foot and Ankle Surg 11/22/24 documented as of this encounter
--- OUTSIDE RECORDS SUMMARY | 2024-11-27 11:07 | XMS_ITS | Encounter Summary ---
Author Organization [facility] Facility Care Team Providers Care Biodiesel Process Control Technician Name Role Phone Caden Hwang MD Primary Care Provider [phone] Miscellaneous, Not In File Primary Care Provider Unavailable Brittney Arredondo MD Primary Care Provider + [phone] Miscellaneous, Not In File Unavailable Unava ilable Caden Hwang MD Unavailable [phone] Unknown, Notinfile Primary Care Provider Unavail able Judith Lo MD Primary Care Provider [phone] Kaleb Atkinson MD Primary Care Provider [phone] Kristyn Champagne MD Primary Care Provider [phone] Peggy Ybarra DPM Unavailable [phone] Encounter Details Date Type Department Care Team (Latest Contact Info) Description 11/18/2015 Orders Only [facility] CLINCONV ProviderMono MD [address] [place] [address] Social History Tobacco Use Types Packs/Day Years Used Date Smoking Tobacco: Never Assessed Comments Unknown Sex and Gender Information Value Date Recorded Sex Assigned at Not on file 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 us Historical Provider Final Res ult documented in this encounter Visit Diagnoses Not on filedocumented in this encounter Care Teams Biodiesel Process Control Technician Relationship Specialty Start Date End Date Caden Hwang MD [address] [address] PCP - General 01/31/14 09/18/16 Miscellaneous, Not In File PCP - General 09/19/16 10/04/16 Brittney Arredondo MD [address] [place] [address] [address] [place] [address] PCP - General 10/05/16 01/30/17 Unknown, Notinfile PCP - General 01/31/17 09/14/17 Judith Lo MD PCP - General 09/15/17 11/30/20 Kaleb Atkinson MD PCP - General Family Medicine 12/01/20 11/12/24 Kristyn Champagne MD [address] [place] [address] [place] [address] PCP - General Family Medicine 11/13/24 Miscellaneous, Not In File 10/05/16 Caden Hwang MD 1512 [facility] [address] [place] [address] 09/19/16 10/04/16 Peggy Ybarra DPM [address] [place] [address] Consulting Physician Foot and Ankle Surg 11/22/24 documented as of this encounter
--- OUTSIDE RECORDS SUMMARY | 2024-11-27 11:07 | XMS_ITS | CONTINUITY OF CARE DOCUMENT ---
Author Name ksenia mccormack Address Unknown Organization [facility] Address [address] [place] [address] [address] [place] [address] Phone [phone] Care Team Providers Care Enterprise Account Manager Name Role Phone Jensen Carvalho MD Unavailable [phone] CELINE VAUGHN MD Unavailable [phone] CELINE VAUGHN MD Unavailable [phone] INSURANCE PROVIDERS Payer name Policy type / Coverage type [place]ar[place] red libertarian ID [id number]
--- OUTSIDE RECORDS SUMMARY | 2024-11-27 11:07 | XMS_ITS | Encounter Summary ---
Author Organization [facility] Facility Care Team Providers Care Manager Animation Name Role Phone Caden Hwang MD Primary Care Provider [phone] Miscellaneous, Not In File Primary Care Provider Unavailable Brittney Arredondo MD Primary Care Provider + [phone] Miscellaneous, Not In File Unavailable Unava ilable Caden Hwang MD Unavailable [phone] Unknown, Notinfile Primary Care Provider Unavail able Judith Lo MD Primary Care Provider [phone] Kaleb Atkinson MD Primary Care Provider [phone] Kristyn Champagne MD Primary Care Provider [phone] Peggy Ybarra DPM Unavailable [phone] Encounter Details Date Type Department Care Team (Latest Contact Info) Description 11/05/2015 Orders Only [facility] CLINCONV ProviderMono MD [address] [place] [address] Social History Tobacco Use Types Packs/Day Years Used Date Smoking Tobacco: Never Assessed Comments Unknown Sex and Gender Information Value Date Recorded Sex Assigned at Not on file 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 us Historical Provider Final Res ult documented in this encounter Visit Diagnoses Not on filedocumented in this encounter Care Teams Manager Animation Relationship Specialty Start Date End Date Caden Hwang MD [address] [address] PCP - General 01/31/14 09/18/16 Miscellaneous, Not In File PCP - General 09/19/16 10/04/16 Brittney Arredondo MD [address] [place] [address] [address] [place] [address] PCP - General 10/05/16 01/30/17 Unknown, Notinfile PCP - General 01/31/17 09/14/17 Judith Lo MD PCP - General 09/15/17 11/30/20 Kaleb Atkinson MD PCP - General Family Medicine 12/01/20 11/12/24 Kristyn Champagne MD [address] [place] [address] [place] [address] PCP - General Family Medicine 11/13/24 Miscellaneous, Not In File 10/05/16 Caden Hwang MD 1512 [facility] [address] [place] [address] 09/19/16 10/04/16 Peggy Ybarra DPM [address] [place] [address] Consulting Physician Foot and Ankle Surg 11/22/24 documented as of this encounter
--- OUTSIDE RECORDS SUMMARY | 2024-11-27 11:07 | XMS_ITS | Encounter Summary ---
Author Organization [facility] Facility Care Team Providers Care Environmental Protection Forester Name Role Phone Caden Hwang MD Primary Care Provider [phone] Miscellaneous, Not In File Primary Care Provider Unavailable Brittney Arerdondo MD Primary Care Provider + [phone] Miscellaneous, Not In File Unavailable Unava ilable Caden Hwang MD Unavailable [phone] Unknown, Notinfile Primary Care Provider Unavail able Judith Lo MD Primary Care Provider [phone] Kaleb Atkinson MD Primary Care Provider [phone] Kristyn Champagne MD Primary Care Provider [phone] Peggy Ybarra DPM Unavailable [phone] Encounter Details Date Type Department Care Team (Latest Contact Info) Description 08/02/2014 Orders Only [facility] CLINCONV ProviderMono MD [address] [place] [address] Social History Tobacco Use Types Packs/Day Years Used Date Smoking Tobacco: Never Assessed Comments Unknown Sex and Gender Information Value Date Recorded Sex Assigned at Not on file 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 us Historical Provider Final Res ult documented in this encounter Visit Diagnoses Not on filedocumented in this encounter Care Teams Environmental Protection Forester Relationship Specialty Start Date End Date Caden Hwang MD [address] [address] PCP - General 01/31/14 09/18/16 Miscellaneous, Not In File PCP - General 09/19/16 10/04/16 Brittney Arredondo MD [address] [place] [address] [address] [place] [address] PCP - General 10/05/16 01/30/17 Unknown, Notinfile PCP - General 01/31/17 09/14/17 Judith Lo MD PCP - General 09/15/17 11/30/20 Kaleb Atkinson MD PCP - General Family Medicine 12/01/20 11/12/24 Kristyn Champagne MD [address] [place] [address] [place] [address] PCP - General Family Medicine 11/13/24 Miscellaneous, Not In File 10/05/16 Caden Hwang MD [address] [address] 09/19/16 10/04/16 Peggy Ybarra DPM [address] [place] [address] Consulting Physician Foot and Ankle Surg 11/22/24 documented as of this encounter
--- OUTSIDE RECORDS SUMMARY | 2024-11-27 11:07 | XMS_ITS | Continuity of Care Document ---
Author Organization [facility] Address [address] [place] [address] Phone Care Team Providers Care Bottle Carrier Name Role Phone Regan OD, Sahil Unavailable Unavailable Advance Directives Directive Yes / No Effective Date File Name No Information Encounters Encounter Description Practice Location Reason(s) For Visit Diagnoses Date Provider Providers Copied on Encounter [facility], [address], [place], [place], [id number], [place] tel:[phone] [facility] No Information Aug-0 4-200 0 Regan OD Sahil. [address] , [address], [place], [address], [place]. tel:[phone] Family History Family Member Type Diagnosis Age At Onset No Information Payers Payer name Insurance type Covered constitution party ID Authoriza tion(s) No Information Social [...]
--- OUTSIDE RECORDS SUMMARY | 2024-11-27 11:07 | XMS_ITS | Referral Summary ---
Author Organization [facility] al Address [address] [place] [address] Care Team Providers Care Transplant Immunologist Name Role Phone Miscellaneous, Not In File Unavailable Unava ilKristyn Gustafson MD Primary Care Provider Peggy Ybarra DPM Unavailable Encounters Date Type Department Care Team Description 11/22/2024 12:00 PM CDT - 11/22/2024 2:30 PM CDT Surgery [facility] Operating Room [address] [place] [address] Peggy Ybarra, DPM CHEILECTOMY 1ST Metatarsal phalangeal joint 11/22/2024 12:19 PM CDT Anesthesia Event [facility] Operating Room [address] [place] [address] Armando Ortiz MD Alexander, Jeffrey Michael, 11/22/2024 10:29 AM CDT - 11/22/2024 4:03 PM CDT Hospital Encounter [facility] Operating Room [address] [place] [address] Peggy Ybarra, DPM Discharge Disposition: Discharge to home or self care from Last 3 Months Allergies Active Allergy Reactions Criticality Noted Date Comments Acetaminophen Other (See comments) Low 01/14/2016 Confusion Informed not to take by pcp Adhesive Rash Medium 11/24/2016 BAND-AID brand comfort sheer Amitriptyline Other (See comments),Seizures High 01/14/2016 Confusion Carbamazepine Sibutramine Rash,Unknown Medium 07/11/2012 rash Trazodone Other (See comments) Low 09/12/2017 Urinary incontinence Medications cyanocobalamin (Vitamin B-12) 500 mcg tablet Take 1 tablet (500 mcg total) by mouth daily Active pregabalin (LYRICA) 200 mg capsule Take 1 capsule (200 mg total) by mouth 2 (two) times a day 2 Active levothyroxine (SYNTHROID) 200 mcg tablet Take 1 tablet (200 mcg total) by mouth foundry molder before breakfast Active losartan (COZAAR) 100 mg tablet Take 1 tablet (100 mg total) by mouth daily Active potassium gluconate 595 mg (99 mg) tablet Take 1 tablet (595 mg total) by mouth 2 (two) times a day Active UNABLE TO FIND Take 1 each by mouth daily Med Name: Co Q 10 100 mg with Vitamin E 60 mg Active GINKGO BILOBA ORAL Take 30 mg by mouth 2 (two) times a day Active cholecalciferol (VITAMIN D-3) 2000 unit tablet Take 1 tablet (2,000 Units total) by mouth daily Active oxyCODONE (ROXICODONE) 5 mg immediate release tabletIndicatio ns:Pain Take 1 tablet (5 mg total) by mouth every 4 (four) hours as needed for pain for up to 7 days 30 tablet 5 11/30/19 25 Active levothyroxine (SYNTHROID) 25 mcg tablet TAKE ONE TABLET BY MOUTH EVERY DAY 9 11/16/19 25 Discontinu ed(Therapy completed) potassium chloride (KLOR-CON) 20 mEq packet Take 20 mEq by mouth 2 (two) times a day 11/16/19 25 Discontinu ed(Therapy completed) cyclobenzaprine (FLEXERIL) 5 mg tablet Take 5 mg by mouth daily as needed for muscle spasms 11/16/19 25 Discontinu ed(Therapy completed) ondansetron (ZOFRAN) 8 mg tablet Take by mouth every 8 (eight) hours as needed for nausea or vomiting 11/16/19 25 Discontinu ed(Therapy completed) chlordiazePOXID E (LIBRIUM) 10 mg capsule Take 10 mg by mouth 3 (three) times a day as needed for anxiety 11/16/19 25 Discontinu ed(Therapy completed) escitalopram (LEXAPRO) 10 mg tablet Take 10 mg by mouth daily 2 11/16/19 25 Discontinu ed(Therapy completed) losartan (COZAAR) 50 mg tablet Take 50 mg by mouth daily 2 11/16/19 25 Discontinu ed(Therapy completed) solifenacin (VESIcare) 5 mg tablet 2 11/16/19 25 Discontinu ed(Therapy completed) Active Problems Problem Noted Date Diagnosed Date Hallux rigidus of right foot 10/29/2024 Acquired hammer toe of right foot 10/29/2024 Metatarsalgia of right foot 10/29/2024 Encounter for screening colonoscopy 12/25/2020 Assessment & Plan (12/25/2020 11:43 AM CDT): Polyp 2016. colonoscopy History of colonic polyps 12/25/2020 Overview (12/25/2020): Added automatically from request for surgery [id number] Family history of colonic polyps 12/25/2020 Overview (12/25/2020): Added automatically from request for surgery [id number] DDD (degenerative disc disease), lumbar 02/07/20 19 GERD (gastroesophageal reflux disease) 9 History of sleeve gastrectomy 02/06/2019 Pain in left hip 09/01/2017 Panic attack 02/08/2017 Moderate recurrent major depression 12/28/2016 Chronic pain 12/18/2016 Overview (12/25/2020): Overview: neck, back, bilateral knees, bilateral hips Complication of foreign body accidentally left in body following procedure 12/17/2016 Insomnia 12/05/2016 Neuropathy 12/05/2016 Chest wall pain 09/23/2016 Osteoarthritis 09/19/2016 Cervical disc disorder with radiculopathy 2016 Anaclitic depression 09/19/2016 Hypertension 09/19/2016 Migraine with aura and witho ut status migrainosus, not intractable 08/31/2016 Moderate single current epis ode of major depressive disorder 06/09/2016 Overview (12/25/2020): Responding to Prozac therapy Acquired hypothyroidism 05/20/2016 Vitamin D deficiency 05/20/2016 Presence of right artificial knee joint 03/09/20 16 Morbid obesity 01/11/2016 Tinnitus 01/11/2016 Sinusitis 10/30/2014 Transient neurologic deficit 08/07/2014 Other muscle spasm 01/10/2014 Nausea 02/14/2013 Depression 08/16/2012 Anxiety 07/11/2012 Arthritis 07/11/2012 Headache 07/11/2012 Seizure 07/11/2012 Thyroid disease 07/11/2012 Syncope 08/24/2011 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 Social History Tobacco Use Types Packs/Day Years Used Date Smoking Tobacco: Every Day Cigarettes Smokeless Tobacco: Never Tobacco Cessation:Ready to Q uit: Not Asked; Counseling Given: Not Answered Alcohol Use Standard Drinks/Week Comments No 0 (1 standard drink = 0.6 oz pur e alcohol) AUDIT-C Answer Date Recorded Q1: How often do you have a drink containing alcohol? 4 or more times a week 11/22/2024 Q2: How many drinks containi ng alcohol do you have on a typical day when you are drinking? 1 or 2 Q3: How often do you have si x or more drinks on one occasion? Less than monthly 11/22/2024 Personal Safety Answer Date Recorded Have you ever been in or are you currently in a harmful physical or emotional relationship or is someone making you feel afraid or unsafe? 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 Gender Identity Not on file Sexual Orientation Not on file Last Filed Vital Signs Vital Sign Reading Time Taken Comments Blood Pressure 145/88 11/22/2024 3:44 PM CDT Pulse 96 11/22/2024 3:44 PM CDT Temperature 36.9 C (98.4 F) 11/22/2024 3:44 PM CDT Respiratory Rate 20 11/22/2024 3:44 PM CDT Oxygen Saturation 92% 11/22/2024 3:44 PM CDT Inhaled Oxygen Concentration - - Weight 91.2 kg (201 lb 1 oz) 11/22/2024 10:35 AM CDT Height 170.2 cm (5' 7) 11/22/2024 10:35 AM CDT Body Mass Index 31.49 11/22/2024 10:35 AM CDT Plan of Treatment Not on file Medical Devices Implanted Type Area Corporate Legal Assistant Device Identifier Shelf Expiration Date Model / Serial / Lot Rt Knee Replacement Right: Knee [employer] Augusto 1.1mm 152mm Trocar Point 2 End Style 1 Wire Fixation [id number] - Sn/A - [id number] Implanted:Qty: 1 on 11/22/2024 by Peggy Ybarra DPM at [facility] Right: Second Toe [employer] 09/08/2032 [id number] / N/A / [id number] [employer] Augusto 1.1mm 152mm Trocar Point 2 End Style 1 Wire Fixation [id number] - Sn/A - [id number] Implanted:Qty: 1 on 11/22/2024 by Peggy Ybarra DPM at [facility] Right: Third Toe [employer] 09/05/2033 [id number] / N/A / [id number] Procedures Procedure Name Priority Date/Time Associated Diagnosis Comments XR FOOT RIGHT 1 VIEW IP Routine 11/22/2024 1:32 PM CDT FL FLUOROSCOPY < 1 HOUR IP Routine 11/22/2024 1:32 PM CDT CA AN ELECTIVE SUPRAGLOTTIC AIRWAY Routine 11/22/2024 12:30 PM CDT TENOLYSIS 11/22/2024 12:03 PM CDT Hallux rigidus of right foot Acquired hammer toe of right foot ARTHROPLASTY PHALANGEAL JOINT 11/22/2024 12:03 PM CDT Hallux rigidus of right foot Acquired hammer toe of right foot CHEILECTOMY 11/22/2024 12:03 PM CDT Hallux rigidus of right foot Acquired hammer toe of right foot COLONOSCOPY 01/28/2021 10:42 AM CDT from Last 3 Months or Most Recently Relevant to Health Maintenance Results * XR Foot Right 1 View (11/22/2024 1:32 PM CDT) Anatomical Region Laterality Modality Foot Right Radio Fluoroscop y 11/24/2024 6:59 PM CDT Narrative 11/24/2024 7:00 PM CDT EXAM DESCRIPTION: XR FOOT RIGHT 1 VIEW REASON FOR STUDY: pain Hammer toes 3 sec ft .12 mhgy FINDINGS: Multiple fluoroscopic images consisting of a single view(s) submitted without comparison. Reference air kerma equals 0.12 mGy. Fluoroscopic images demonstrate an in progress 2nd and 3rd hammertoe repairs . IMPRESSION: In progress right 2nd and 3rd hammertoe repairs. THIS IS AN ELECTRONICALLY VERIFIED FINAL REPORT 11/24/2024 7:00 PM - Electronically signed by Caden Funk M.D. MF: [id number] Report ID: [id number] Reading Location: [id number] Procedure Note Caden Funk MD - 11/24/2024 EXAM DESCRIPTION: XR FOOT RIGHT 1 VIEW REASON FOR STUDY: pain Hammer toes 3 sec ft .12 mhgy FINDINGS: Multiple fluoroscopic images consisting of a single view(s) submitted without comparison. Reference air kerma equals 0.12 mGy. Fluoroscopic images demonstrate an in progress 2nd and 3rd hammertoerepairs . IMPRESSION: In progress right 2nd and 3rd hammertoe repairs. THIS IS AN ELECTRONICALLY VERIFIED FINAL REPORT 11/24/2024 7:00 PM - Electronically signed by Caden Funk M.D. MF: [id number] Report ID: [id number] Reading Location: [id number] Peggy Ybarra DPM IMG XR PROCEDURES Final Res ult * FL Fluoroscopy < 1 Hour (11/22/2024 1:32 PM CDT) Narrative [facility] - 11/22/2024 1:32 PM CDT The images from this study are not interpreted by Radiology. Please refer to the physician's procedure / OR operative note. us Peggy Ybarra DPRajesh IMG FLUOROSCOPY PROCEDURES Final Result Performing Organization Address City/State/ZIP Sd de Phone Number [facility] * [place] AN ELECTIVE SUPRAGLOTTIC AIRWAY (11/22/2024 12:30 PM CDT) Narrative Eren Aden CRNA - 11/22/2024 12:30 PM CDT Eren Aden CRNA 11/22/2024 12:31 PM Airway Patient location: OR Urgency: elective Date/time: 11/22/2024 12:23 PM Indications for airway management: anesthesia Difficult airway: no Staff: Placed by: HEDGE FUND MANAGER: Eren Aden CRNA Emergent airway documentation: Risks and benefits discussed: yes Consent obtained: yes Consent given by: patient Airway prep: Preoxygenated: yes Patient position: sniffing Mask difficulty assessment: 0 - not attempted Spontaneous ventilation during airway: absent Sedation level during airway: GA Final airway details: Final airway type: supraglottic airway Final supraglottic airway: unique SGA size: 4 Airway seal pressure: 20 cm H2O Number of attempts: 1 Additional comments: Smooth atraumatic placement. us Armando Ortiz MD ANESTHESIA ORDERABLES Final Result * COLONOSCOPY (01/28/2021 10:42 AM CDT) Anatomical Region Laterality Modality Other Narrative Procedure Note Bravo Mcdonald MD - 01/28/2021 10:42 AM CDT [facility] Patient Name: Jazlyn Waddell Procedure Date: 01/28/2021 10:42 AM Date of : 1965 Admit Type: Outpatient Age: 55 Gender: Female Attending MD: Bravo Mcdonald M.D. Room: [facility] ENDOSCOPY ROOM 2 Note Status: Finalized Patient Profile: Refer to note in patient chart for documentation of history and physical. Procedure: Colonoscopy Indications: High risk colon cancer surveillance: Personalhistory of colonic polyps, Last colonoscopy: October 2015 Referring MD: Kaleb Atkinson M.D. Providers: Bravo Mcdonald M.D. Impression: - Hemorrhoids found on perianal exam. - One 15 mm polyp in the transverse colon, removed with a hot snare. Resected and retrieved. - One 5 mm polyp in the transverse colon. - Diverticulosis in the sigmoid colon. - The examination was otherwise normal. Recommendation: - Discharge patient to home. - Resume previous diet. - Continue present medications. - Await pathology results. - Repeat colonoscopy in 3 years for surveillance. - Return to primary care physician as previously scheduled. Medicines: Propofol per Anesthesia Complications: No immediate complications. Estimated Blood Loss: Estimated blood loss: none. Procedure: Pre-Anesthesia Assessment: - This assessment was completed [Time ofAssessment] prior to the administration of sedation. The benefits, risks and alternatives of theprocedure and sedation were discussed and informed consentwas obtained. All questions were answered. Please referto the signed informed consent document in the medical record. The bowel preparation used was Miralax via single dose instruction. The bowel preparation used was bisacodyl tablets via single dose instruction.The scope was passed under direct vision. TheColonoscope [id number] was introduced through the anus and advanced to the the cecum, identified by appendiceal orifice and ileocecal valve. The colonoscopy was performed without difficulty. The patient tolerated the procedure well. The qualityof the bowel preparation was good. Findings: Hemorrhoids were found on perianal exam. A 15 mm polyp was found in the transverse colon. The polyp wassessile. The polyp was removed with a hot snare. Resection and retrieval were complete. Verification of patient identification for the specimen was done by the physician and nurse using the patient's name and birthdate. Estimated blood loss was minimal. A 5 mm polyp was found in the transverse colon. The polyp wassessile. Verification of patient identification for the specimen was done bythe physician and nurse using the patient's name and date.Estimated blood loss was minimal. Multiple small-mouthed diverticula were found in the sigmoid colon. The exam was otherwise without abnormality. Electronically signed by Bravo Mcdonald M.D. Bravo Mcdonald M.D. 01/28/2021 12:15:06 PM Number of Addenda: 0 Note Initiated On: 01/28/2021 10:42 AM Procedure Code(s): --- Professional --- 18291, Colonoscopy, flexible; with removal of tumor(s), polyp(s), or other lesion(s) by snare technique Diagnosis Code(s): --- Professional --- K57.30, Diverticulosis of large intestine without perforation orabscess without bleeding K63.5, Polyp of colon K64.9, Unspecified hemorrhoids Z86.010, Personal history of colonic polyps CPT copyright 2019 [employer]. All rights reserved. The codes documented in this report are preliminary and upon shaker out reviewmay be revised to meet current compliance requirements. Recognized by the [place] [employer] for promoting quality in endoscopy us Bravo Mcdonald MD ENDOSCOPY PROCEDURES Final Re sult from Last 3 Months or Most Recently Relevant to Health Maintenance Insurance [facility] Advance Directives For more information, please contact: [phone] * Full Code (Latest Code Status on File) Date Activated Date Inactivated Comments 01/28/2021 10:26 AM 01/28/2021 5:20 PM * Full Code Date Activated Date Inactivated Comments 01/28/2021 10:26 AM 01/28/2021 10:26 AM Care Teams Transplant Immunologist Relationship Specialty Start Date End Date Kristyn Champagne MD [address] [place] [address] PCP - General Family Medicine 11/13/24 Miscellaneous, Not In File 10/05/16 Peggy Ybarra, DPM [address] [place] [id number] Consulting Physician Foot and Ankle Surg 11/22/24
--- OUTSIDE RECORDS SUMMARY | 2024-11-27 11:07 | XMS_ITS | Encounter Summary ---
Author Organization [facility] Facility Care Team Providers Care Housecleaner Floor Name Role Phone Caden Hwang MD Primary Care Provider [phone] Miscellaneous, Not In File Primary Care Provider Unavailable Brittney Arredondo MD Primary Care Provider [phone] Miscellaneous, Not In File Unavailable Unava ilable Caden Hwang MD Unavailable [phone] Unknown, Notinfile Primary Care Provider Unavail able Judith Lo MD Primary Care Provider [phone] Kaleb Atkinson MD Primary Care Provider [phone] Kristyn Champagne MD Primary Care Provider [phone] Peggy Ybarra DPM Unavailable [phone] Encounter Details Date Type Department Care Team (Latest Contact Info) Description 01/06/2016 Orders Only [facility] CLINCON[facility] ProviderMono MD [address] [place] [id number] Social History Tobacco Use Types Packs/Day Years Used Date Smoking Tobacco: Never Assessed Comments Unknown Sex and Gender Information Value Date Recorded Sex Assigned at Not on file 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 us Historical Provider Final Res ult documented in this encounter Visit Diagnoses Not on filedocumented in this encounter Care Teams Housecleaner Floor Relationship Specialty Start Date End Date Caden Hwang MD [address] [address] PCP - General 01/31/14 09/18/16 Miscellaneous, Not In File PCP - General 09/19/16 10/04/16 Brittney Arredondo MD [address] [place] [address] [address] [place] [address] PCP - General 10/05/16 01/30/17 Unknown, Notinfile PCP - General 01/31/17 09/14/17 Judith Lo MD PCP - General 09/15/17 11/30/20 Kaleb Atkinson MD PCP - General Family Medicine 12/01/20 11/12/24 Kristyn Champagne MD [address] [place] [address] [place] [address] PCP - General Family Medicine 11/13/24 Miscellaneous, Not In File 10/05/16 Caden Hwang MD [address] [facility] [address] [place] [address] 09/19/16 10/04/16 Peggy Ybarra DPM [address] [place] [id number] Consulting Physician Foot and Ankle Surg 11/22/24 documented as of this encounter
--- OUTSIDE RECORDS SUMMARY | 2024-11-27 11:07 | XMS_ITS | Clinical Summary ---
Author Organization [facility], 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 Active losartan (COZAAR) 100 mg [...] (12/25/2020): Added automatically from request for surgery [id number] Family history of colonic polyps 12/25/2020 Overview (12/25/2020): Added automatically from request for surgery [id number] DDD (degenerative disc disease), lumbar 02/07/20 19 [...] 07/11/2012 Syncope 08/24/2011 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 Encounters Date Type Department Care Team Description 11/22/2024 12:19 PM CDT Anesthesia Event [facility] [address] [place] [address] Armando Ortiz MD Alexander, Jeffrey Michael, 11/22/2024 12:00 PM CDT - 11/22/2024 2:30 PM CDT Surgery [facility] [address] [place] [address] Peggy Ybarra, DPM CHEILECTOMY 1ST Metatarsal phalangeal joint 11/22/2024 10:29 AM CDT - 11/22/2024 4:03 PM CDT Hospital Encounter [facility] [address] [place] [address] Peggy Ybarra, DPM Discharge Disposition: Discharge to home or self care from Last 3 Months Surgical History Surgery Date Site/Laterality Comments HI VAGINAL HYSTERECTOMY UTERUS 250 GM/< Vaginal Hysterectomy - (Added by TW Conv) KNEE SURGERY Knee Surgery - (Added by TW Conv) FOOT SURGERY Bilateral Foot Repair - (Added by TW Conv) WRIST SURGERY Right Wrist Surgery - (Added by TW Conv) HI ARTHRP KNE CONDYLE&PLATU MEDIAL&LAT COMPARTMENTS Total Knee Replacement Right - (Added by TW Conv) COLONOSCOPY 11/05/2015 POLYPECTOMY GASTRIC BYPASS gastric sleeve, not bypass HYSTERECTOMY SPINE SURGERY 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 Medical History Medical History Date Comments Hx Other Medical partial hystere ctomy 2007; Comments: [facility] 02/03/2014 - Personal history of transien t ischemic attack (TIA), and cerebral infarction without residual deficits History of stroke - (Added b y TW Conv) Convulsions (HCC) Seizure - (Add ed by TW Conv) Personal history of other sp ecified conditions History of weight loss - (Ad ded by TW Conv) Personal history of other en docrine, nutritional and metabolic disease History of thyroid d isorder - (Added by TW Conv) Personal history of other di seases of the musculoskeletal system and connective tissue History of backache - (Added by TW Conv) Presence of orthopedic joint implant History of artificial joint - (Added by TW Conv) Personal history of other me ntal and behavioral disorders History of anxiety - (Added by TW Conv) Chronic diarrhea Hypothyroidism Colon polyp Hypertension Family History Medical History Relation Name Comments Cancer Father Family history of malignant neoplasm - (Added by TW Conv) Diabetes Father Family history of diabetes mellitus - (Added by TW Conv) Heart disease Father Family history of cardiac disorder - (Added by TW Conv) Hypertension Father Hypertension; / Family history of hypertension - (Added by TW Conv) Alzheimer's disease Maternal Grandmother Alzheimer's disease; Stroke Maternal Grandmother Stroke; Cancer Mother Family history of malignant neoplasm - (Added by TW Conv) Diabetes Mother Family history of diabetes mellitus - (Added by TW Conv) Heart disease Mother Family history of cardiac disorder - (Added by TW Conv) Heart murmur Mother Family history of heart murmur - (Added by TW Conv) Hypertension Mother Family history of hypertension - (Added by TW Conv) Irritable bowel syndrome Mother Fam dez history of irritable bowel syndrome - (Added by TW Conv) Diabetes Other 1 Family history of diabetes mellitus - (Added by TW Conv) Hypertension Other 2 Family history of hypertension - (Added by TW Conv) Heart disease Other 3 Family history of cardiac disorder - (Added by TW Conv) Cancer Other 4 Family history of malignant neoplasm - (Added by TW Conv) Crohn's disease Son 1 Family histo ry of Crohn's disease - (Added by TW Conv) Diabetes Son 2 Family history of diabetes mellitus - (Added by TW Conv) Hypertension Son 3 Family history of hypertension - (Added by TW Conv) Heart disease Son 4 Family history of cardiac disorder - (Added by TW Conv) Cancer Son 5 Family history of malignant neoplasm - (Added by TW Conv) Relation Name Status Comments Father Maternal Grandmother Mother Other 1 Other 2 Other 3 Other 4 Son 1 Son 2 Son 3 Son 4 Son 5 Social History Tobacco Use Types Packs/Day Years [...] on file 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 Gender Identity Not on file Sexual Orientation Not on file Obstetrics History Last Filed Vital Signs Vital Sign Reading [...] 11/22/2024 10:35 AM CDT Plan of Treatment Health Maintenance Due Date Last Done Comments Breast Cancer Screening-Mammogram 1965 Depression Screening 1965 Hepatitis C Screening 1965 DTaP/Tdap/Td Vaccine (1 - Tdap) 1976 Hepatitis B Screening 08/29/1983 Regular Well Visit/Exam 18-64 08/29/1983 Pneumococcal vaccine <65 (1 of 2 - PCV) 1984 Zoster Vaccine (1 of 2) 08/29/2015 Influenza Vaccine (Season Ended) 2025 03/31/2021, 03/24/2020, 09/12/2017, Additional history exists Colon Cancer Screening-Colonoscopy 01/28/2031 01/28/2021 Colon Cancer Screening-CT Colonography Discontinued 01/28/2021 Colon Cancer Screening-DNA Stool Discontinued 01/29/20 21 Colon Cancer Screening-FIT Discontinued 01/28/2021 Colon Cancer Screening-Sigmoidoscopy Discontinued 01/28/2021 Medical Devices Implanted Type Area Tool Specialist Device Identifier Shelf Expiration Date Model / Serial / Lot Rt Knee Replacement Right: Knee [employer] Augusto 1.1mm 152mm Trocar Point 2 End Style 1 Wire Fixation [id number] - Sn/A - [id number] Implanted:Qty: 1 on 11/22/2024 by Peggy Ybarra DPM at [facility] Right: Second Toe [employer] 09/08/2032 [id number] / N/A / [id number] [employer] Augusto 1.1mm 152mm [place]car Point 2 End Style 1 Wire Fixation [id number] - Sn/A - [id number] Implanted:Qty: 1 on 11/22/2024 by Peggy Ybarra DPM at [facility] Right: Third Toe [employer] 09/05/2033 [id number] / N/A / [id number] Procedures Procedure Name Priority Date/Time Associated Diagnosis Comments XR FOOT RIGHT 1 VIEW IP Routine 11/22/2024 1:32 PM CDT FL FLUOROSCOPY < 1 HOUR IP Routine 11/22/2024 1:32 PM CDT HI AN ELECTIVE SUPRAGLOTTIC AIRWAY Routine 11/22/2024 12:30 [...] Caden Funk M.D. MF: [id number] Report ID: [id number] Reading Location: [id number] Procedure Note Caden Funk MD - 11/24/2024 [...] Caden Funk M.D. MF: [id number] Report ID: [id number] Reading Location: [id number] us Peggy Ybarra DPRajesh IMG XR PROCEDURES Final Res ult * FL Fluoroscopy < 1 Hour (11/22/2024 1:32 PM CDT) Narrative [facility] - 11/22/2024 1:32 PM CDT The images from this study are not interpreted by Radiology. Please refer to the physician's procedure / OR operative note. us Peggy Ybarra DPRajesh IMG FLUOROSCOPY PROCEDURES Final Result [facility] * HI AN ELECTIVE SUPRAGLOTTIC AIRWAY (11/22/2024 12:30 PM CDT) Narrative Eren Aden CRNA - 11/22/2024 12:30 PM CDT Eren Aden CRNA 11/22/2024 12:31 PM Airway Patient location: OR Urgency: elective Date/time: 11/22/2024 12:23 PM Indications for airway management: anesthesia Difficult airway: no Staff: Placed by: INSOLE BEVELER: Eren Aden CRNA Emergent airway documentation: Risks [...] Mcdonald MD - 01/28/2021 10:42 AM CDT [facility] Patient Name: Jazlyn Waddell Procedure Date: 01/28/2021 10:42 AM Date of : 1965 Admit Type: Outpatient Age: 55 Gender: Female Attending MD: Bravo Mcdonald M.D. Room: [facility] ENDOSCOPY ROOM 2 Note Status: Finalized [...] scope was passed under direct vision. TheColonoscope [id number] was introduced through the anus and advanced [...] 10:42 AM Procedure Code(s): --- Professional --- 86695, Colonoscopy, flexible; with removal of tumor(s), polyp(s), or other lesion(s) by snare technique Diagnosis Code(s): --- Professional --- K57.30, Diverticulosis of large intestine without perforation orabscess without bleeding K63.5, Polyp of colon K64.9, Unspecified hemorrhoids Z86.010, Personal history of colonic polyps CPT copyright 2019 [employer]. All rights reserved. The codes documented in this report are preliminary and upon info print press operator reviewmay be revised to meet current compliance requirements. Recognized by the [employer] for promoting quality in endoscopy Bravo Mcdonald MD ENDOSCOPY PROCEDURES Final Re sult from Last 3 Months or Most Recently Relevant to Health Maintenance Insurance [facility] Advance Directives For more information, please contact: [phone] * Full Code (Latest Code Status on File) Date Activated Date Inactivated Comments 01/28/2021 10:26 AM 01/28/2021 5:20 PM * Full Code Date Activated Date Inactivated Comments 01/28/2021 10:26 AM 01/28/2021 10:26 AM Care Teams Home Health Outreach Coordinator Relationship Specialty Start Date End Date Kristyn Champagne MD [address] [place] [address] PCP - General Family Medicine 11/13/24 Miscellaneous, Not In File 10/05/16 Peggy Ybarra, TINO [address] [place] [address] Consulting Physician Foot and Ankle Surg 11/22/24
--- OUTSIDE RECORDS SUMMARY | 2024-11-27 11:07 | XMS_ITS | Encounter Summary ---
Author Organization [facility] Facility Care Team Providers Care Fructose Loader Name Role Phone Caden Hwang MD Primary Care Provider [phone] Miscellaneous, Not In File Primary Care Provider Unavailable Brittney Arredondo MD Primary Care Provider [phone] Miscellaneous, Not In File Unavailable Unava ilable Caden Hwang MD Unavailable [phone] Unknown, Notinfile Primary Care Provider Unavail able Judith Lo MD Primary Care Provider [phone] Kaleb Atkinson MD Primary Care Provider [phone] Kristyn Champagne MD Primary Care Provider [phone] Peggy Ybarra DPM Unavailable [phone] Encounter Details Date Type Department Care Team (Latest Contact Info) Description 12/31/2015 Orders Only [facility] CLINCONV ProviderMono MD [address] [place] [address] Social History Tobacco Use Types Packs/Day Years Used Date Smoking Tobacco: Never Assessed Comments Unknown Sex and Gender Information Value Date Recorded Sex Assigned at Not on file 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 us Historical Provider Final Res ult * CARDIOLOGY REPORT (01/11/2016 12:00 AM CDT) Anatomical Region Laterality Modality Other Narrative 01/11/2016 12:00 AM CDT Ordered by an unspecified provider. Historical Provider [facility]IAC SERVICES PROCE SHIRA Final Result documented in this encounter Visit Diagnoses Not on filedocumented in this encounter Care Teams Fructose Loader Relationship Specialty Start Date End Date Caden Hwang MD [address] [facility] [address] [place], [place] [id number] PCP - General 01/31/14 09/18/16 Miscellaneous, Not In File PCP - General 09/19/16 10/04/16 Brittney Arredondo MD [address] [place] [address] [address] [place] [address] PCP - General 10/05/16 01/30/17 Unknown, Notinfile PCP - General 01/31/17 09/14/17 Judith Lo MD PCP - General 09/15/17 11/30/20 Kaleb Atkinson MD PCP - General Family Medicine 12/01/20 11/12/24 Kristyn [place] [address] PCP - General Family Medicine 11/13/24 Miscellaneous, Not In File 10/05/16 Caden Hwang MD [address] [address] 09/19/16 10/04/16 Peggy Ybarra DPM [address] [place] [address] Consulting Physician Foot and Ankle Surg 11/22/24 documented as of this encounter
--- OUTSIDE RECORDS SUMMARY | 2024-11-27 11:07 | XMS_ITS | Clinical Summary ---
Author Organization [facility] Address [address] [place] [address] Care Team Providers Care Public Health Physician Name Role Phone Unavailable Primary Care Provider Unavailabl e Social History Tobacco Use Types Packs/Day Years Used Date Smoking Tobacco: Never Assessed Comments Unknown Sex and Gender Information Value Date Recorded Sex Assigned at Not on file Legal Sex Female 9:20 AM CDT Gender Identity Not on file Sexual Orientation Not on file Plan of Treatment Health Maintenance Due Date Last Done Comments Hepatitis C Virus (HCV) Screening 1965 TdaP Immunization 1965 Hepatitis B Immunization (1 of 3 - 19+ 3-dose series) 1984 Pap Smear 1986 Cervical Cancer Screening (CCS) 08/29/1995 HPV/Cotest 08/29/1995 Colonoscopy 2010 Colorectal Cancer Screening 2010 Cologuard 08/29/2015 Immunochemical Fecal Occult Blood 08/29/2015 Mammogram 08/29/2015 Pneumococcal Immunization (5 0+ years) (1 of 1 - PCV) 08/29/2015 Zoster Immunization (1 of 2) 08/29/2015 Influenza Immunization (#1) 2024 SARS-COV-2 Immunization ( season) 2024 Respiratory Syncytial Virus (RSV) Immunization (Adult) (1 - 1-dose 75+ series) 2040 Meningococcal Immunization (ACWY) Aged Out No longer eligible based on patient's age to complete this topic Pneumococcal Immunization Combined Aged Out No longer eligible based on patient's age to complete this topic Rotavirus Immunization Aged Out No lo nger eligible based on patient's age to complete this topic
--- OUTSIDE RECORDS SUMMARY | 2024-11-27 11:07 | XMS_ITS | Data Portability ---
Author Organization [facility] Address [address] [place] [address] Care Team Providers Care Chief Dispatcher Name Role Phone KALEB CALLAHAN Primary Care Provider Assessment Encounter Date Assessment Date Assessment LastModified by Organization Details LastModified Time 05/19/2022 05/19/2022 Due to increased blood pressure, losartan is now increased from 50 to 100 mg daily [email or web address] Not available 05/23/2022 15:55:59 Plan of Treatment Reminders Order Date Submit Date Provider Last Modified By Organization Details Last Modified Time Details Appointments None record ed. Lab TSH, ultra- sensit nikia, serum 2021 023 [facility], [address] [place] [address] 2[place], [address], 3 09:15:47 cultur e, urine 2021 022 [facility], [address] [place] [address], [address], 11:07:45 urinal ysis comple te, reflex cultur e 2021 022 [facility], [address] [place] [address] 2, [place], [address], 11:07:45 TSH, ultra- sensit nikia, serum 2021 022 [facility], [address], [facility] [address], [place], [address], 08:25:21 CMP, serum or plasma 2021 022 [facility], [address] [place] [address] 2, [place], [address], 11:07:44 TSH, ultra- sensit nikia, serum 2021 022 [facility], [address] [place] [address] 2, [place], [address], 17:10:06 ethano l, QN, GC, blood 2021 022 [facility], [address] [place] [address] 2, [place], [address], 17:10:05 CMP, serum or plasma 2021 022 [facility], [address] [place] [address] 2, [place], [address], 17:10:05 TSH, ultra- sensit nikia, serum 2020 021 [facility], [address] [facility], [address], [place], [address], 11:09:03 Referral endocr inolog y referr al 2021 022 NARAYAN Omer, [address], [place], [address], 3 14:59:26 orthop edic surgeo n referr al 2021 022 NARAYAN Dao MD, [address] [facility] , [facility] [address], [place], [address], 13:30:48 Procedures None record ed. Surgeries None record ed. Imaging PFT, comple te 2022 023 [facility] [place], [address], [place], [address], 3 15:28:54 MAMMO, screen ing, bilate ral 2021 023 [facility], [address] [place] [address] [address], [place], [address], 3 11:27:09 XR, chest, 2 view 2021 022 [facility]ON[facility] Marc Padilla (Radiology), [address] [facility] [place], [address], 2 13:55:28 XR, hand, 3 or more view 2021 022 [facility] [place], [address] [place] [address] [address], [place], [address], 2 09:02:44 Medication Orders clonid ine HCl 0.1 mg tablet [email or web address] [place] [address] [id number], [address] [place], [place], [id number], 3 16:38:44 hydroc hlorot hiazid e 12.5 mg capsul e 2022 023 [email or web address] [facility] #03554, [address] [facility], [place], [place], [id number], 3 13:16:45 losart an 100 mg tablet 2021 022 [facility] #20572, [address] [place], [place], [id number], 2 14:59:42 levoth yroxin e 100 mcg tablet 2021 022 [facility] #38999, [address] [place], [place], [id number], 2 16:57:23 Vesica re 5 mg tablet [address] [facility] #96598, [address] [place], [place], [id number], 2 16:00:28 tramad ol 50 mg tablet [address] [facility] #23691, [address] [place], [place], [id number], 16:41:53 chlord iazepo xide 10 mg capsul e [address] [facility] #35401, [address] [place], [place], [id number], 16:56:49 levoth yroxin e 50 mcg tablet 2020 021 [email or web address] [facility] #84175, [address] [place], [place], [id number], 2 12:07:43 escita lopram 10 mg tablet 2020 021 [email or web address] [facility] #55657, [address] [address], [id number], 3 15:12:26 Patient TargetsNo targets recorded. Patient Instructions Encounter Date Encounter Id Patient Instructions Last Modified By Organization Details Last Modified Time 06/16/2021 [id number] hypothyroidism: care instructions Not available 06/16/2021 17:29:27 10/13/2021 [id number] Stress Incontinence: Care Instructions [email or web address] Not available 10/13/2021 16:50:20 hypothyroidism: care instructions [email or web address] Not available 10/13/2021 16:44:13 02/16/2022 [id number] mammogram: about this test Not available 02/16/2022 16:41:26 painful urinatio n (dysuria): care instructions [email or web address] Not available 02/16/2022 16:40:47 hypothyroidism: care instructions [email or web address] Not available 02/16/2022 16:37:03 hypokalemia: car e instructions [email or web address] Not available 02/16/2022 16:40:47 05/19/2022 [id number] mammogram: about this test [email or web address] Not available 05/19/2022 15:05:09 chronic cough: care instructions [email or web address] Not available 05/19/2022 14:49:29 learning about high blood pressure [email or web address] Not available 05/19/2022 14:58:15 hypothyroidism: care instructions Not available 05/19/2022 14:52:35 01/05/2023 [id number] A healthy lifestyle: care instructions Not available 01/05/2023 16:38:38 Quitting Tobacco : Care Instructions Not available 01/05/2023 16:38:38 chronic cough: care instructions [email or web address] Not available 01/05/2023 16:08:35 learning about high blood pressure [email or web address] Not available 01/05/2023 16:38:38 hypothyroidism: care instructions [email or web address] Not available 01/09/2023 16:54:52 Reason for Referral Endocrinology Referral for H ypothyroidism Referring Physician: Kaleb Callahan [facility], Encounter Date: 02/16/2022 Orthopedic Surgeon Referral for Pain of joint of pelvis and/or upper leg Referring Physician: Kaleb Callahan [facility], Encounter Date: 02/16/2022 Results Created Date Observation Date Name Description Value Unit Range Abnormal Flag Note LastModifiedBy Organization Detail LastModifiedTime 06/25/19 22 06/26/2021 TSH RFX ON ABNOR MAL TO FREE T4 TSH 66.800 uIU/m L 0.450- 4.500 above high normal Not Available [facility] ([facility]) [address] [facility], [place], [address], 06/26/2021 11:09:03 06/25/19 22 06/26/2021 TSH RFX ON ABNOR MAL TO FREE T4 T4,free (direct) 0.62 NG/dL 0.82-1 .77 below low normal Not Available [facility] ([facility]) [address] [place], [address], 06/26/2021 11:09:03 10/14/19 22 10/14/2021 COMP. METAB OLIC PANEL (14) glucose 161 mg/dL 65-99 above high normal Not Available [facility] ([facility]) [address] [place], [address], 10/14/2021 17:10:04 10/14/19 22 10/14/2021 COMP. METAB OLIC PANEL (14) BUN 17 mg/dL 6-24 Not Available [facility] ([facility]) [address] [place], [address], 10/14/2021 17:10:04 10/14/19 22 10/14/2021 COMP. METAB OLIC PANEL (14) creatinine 0.84 mg/dL 0.57-1 .00 Not Available [facility] ([facility]) [address] [place], [address], 10/14/2021 17:10:04 10/14/19 22 10/14/2021 COMP. METAB OLIC PANEL (14) eGFR 82 mL/mi n/1.7 3 >59 Not Available [facility] ([facility]) [address] [place], [address], 10/14/2021 17:10:04 10/14/19 22 10/14/2021 COMP. METAB OLIC PANEL (14) BUN/creatini ne ratio 20 9-23 Not Available [facility] ([facility]) [address] [place], [address], 10/14/2021 17:10:04 10/14/19 22 10/14/2021 COMP. METAB OLIC PANEL (14) sodium 139 mmol/ L 134-14 4 Not Available [facility] ([facility]) [address] [facility] [place], [address], 10/14/2021 17:10:04 10/14/19 22 10/14/2021 COMP. METAB OLIC PANEL (14) potassium 4.5 mmol/ L 3.5-5. 2 Not Available [facility] ([facility]) [address] [facility] [place], [address], 10/14/2021 17:10:04 10/14/19 22 10/14/2021 COMP. METAB OLIC PANEL (14) chloride 102 mmol/ L 96-106 Not Available [facility] ([facility]) [address] [facility] [place], [address], 10/14/2021 17:10:04 10/14/19 22 10/14/2021 COMP. METAB OLIC PANEL (14) carbon dioxide, total 20 mmol/ L 20-29 Not Available [facility] ([facility]) [address] [facility] [place], [address], 10/14/2021 17:10:04 10/14/19 22 10/14/2021 COMP. METAB OLIC PANEL (14) calcium 10.3 mg/dL 8.7-10 .2 above high normal Not Available [facility] ([facility]) [address] [facility] [place], [address], 10/14/2021 17:10:04 10/14/19 22 10/14/2021 COMP. METAB OLIC PANEL (14) protein, total 7.4 g/dL 6.0-8. 5 Not Available [facility] ([facility]) [address] [facility] [place], [address], 10/14/2021 17:10:04 10/14/19 22 10/14/2021 COMP. METAB OLIC PANEL (14) albumin 5.0 g/dL 3.8-4. 9 above high normal Not Available [facility] ([facility]) [address] [place], [address], 10/14/2021 17:10:04 10/14/19 22 10/14/2021 COMP. METAB OLIC PANEL (14) globulin, total 2.4 g/dL 1.5-4. 5 Not Available [facility] ([facility]) [address] [place], [address], 10/14/2021 17:10:04 10/14/19 22 10/14/2021 COMP. METAB OLIC PANEL (14) A/G ratio 2.1 1.2-2. 2 Not Available [facility] ([facility]) [address] [place], [address], 10/14/2021 17:10:04 10/14/19 22 10/14/2021 COMP. METAB OLIC PANEL (14) bilirubin, total 0.5 mg/dL 0.0-1. 2 Not Available [facility] ([facility]) [address] [place], [address], 10/14/2021 17:10:04 10/14/19 22 10/14/2021 COMP. METAB OLIC PANEL (14) alkaline phosphatase 99 IU/L 44-121 Not Available [facility] ([facility]) [address] [place], [address], 10/14/2021 17:10:04 10/14/19 22 10/14/2021 COMP. METAB OLIC PANEL (14) AST (SGOT) 45 IU/L 0-40 above high normal Not Available [facility] ([facility]) [address] [facility] [place], [address], 10/14/2021 17:10:04 10/14/19 22 10/14/2021 COMP. METAB OLIC PANEL (14) ALT (SGPT) 35 IU/L 0-32 above high normal Not Available [facility] ([facility]) [address] [place], [address], 10/14/2021 17:10:04 10/14/19 22 10/14/2021 EDE OL, BLOOD ethanol <.010 % cutoff =0.010 This test was loreel roryed and its perfo rmanc e drew cteri stics deter mined by [facility]. It has not been clear ed or appro queta by the Food and Drug Admin istra tion. Not Available [facility] ([facility]) [address] [place], [address], 10/14/2021 17:10:05 10/14/19 22 10/14/2021 TSH RFX ON ABNOR MAL TO FREE T4 TSH 23.100 uIU/m L 0.450- 4.500 above high normal Not Available [facility] ([facility]) [address] [place], [address], 10/14/2021 17:10:06 10/14/19 22 10/14/2021 TSH RFX ON ABNOR MAL TO FREE T4 T4,free (direct) 0.86 NG/dL 0.82-1 .77 Not Available [facility] ([facility]) [address] [place], [address], 10/14/2021 17:10:06 02/17/20 22 02/17/2022 COMP. METAB OLIC PANEL (14) glucose 88 mg/dL 65-99 Not Available [facility] ([facility]) [address] [place], [address], 02/20/2022 11:07:44 02/17/20 22 02/17/2022 COMP. METAB OLIC PANEL (14) BUN 13 mg/dL 6-24 Not Available [facility] ([facility]) [address] [place], [address], 02/20/2022 11:07:44 02/17/20 22 02/17/2022 COMP. METAB OLIC PANEL (14) creatinine 0.98 mg/dL 0.57-1 .00 Not Available [facility] ([facility]) [address] [facility] [place], [address], 02/20/2022 11:07:44 02/17/20 22 02/17/2022 COMP. METAB OLIC PANEL (14) eGFR 68 mL/mi n/1.7 3 >59 Not Available [facility] ([facility]) [address] [place], [address], 02/20/2022 11:07:44 02/17/20 22 02/17/2022 COMP. METAB OLIC PANEL (14) BUN/creatini ne ratio 13 9-23 Not Available [facility] ([facility]) [address] [facility] [place], [address], 02/20/2022 11:07:44 02/17/20 22 02/17/2022 COMP. METAB OLIC PANEL (14) sodium 141 mmol/ L 134-14 4 Not Available [facility] ([facility]) [address] [facility] [place], [address], 02/20/2022 11:07:44 02/17/20 22 02/17/2022 COMP. METAB OLIC PANEL (14) potassium 4.2 mmol/ L 3.5-5. 2 Not Available [facility] ([facility]) [address] [facility] [place], [address], 02/20/2022 11:07:44 02/17/20 22 02/17/2022 COMP. METAB OLIC PANEL (14) chloride 99 mmol/ L 96-106 Not Available [facility] ([facility]) [address] [facility] [place], [address], 02/20/2022 11:07:44 02/17/20 22 02/17/2022 COMP. METAB OLIC PANEL (14) carbon dioxide, total 25 mmol/ L 20-29 Not Available [facility] ([facility]) [address] [facility] [place], [address], 02/20/2022 11:07:44 02/17/20 22 02/17/2022 COMP. METAB OLIC PANEL (14) calcium 10.3 mg/dL 8.7-10 .2 above high normal Not Available [facility] ([facility]) [address] [facility] [place], [address], 02/20/2022 11:07:44 02/17/20 22 02/17/2022 COMP. METAB OLIC PANEL (14) protein, total 7.7 g/dL 6.0-8. 5 Not Available [facility] ([facility]) [address] [facility] [place], [address], 02/20/2022 11:07:44 02/17/20 22 02/17/2022 COMP. METAB OLIC PANEL (14) albumin 5.1 g/dL 3.8-4. 9 above high normal Not Available [facility] ([facility]) [address] [facility] [place], [address], 02/20/2022 11:07:44 02/17/20 22 02/17/2022 COMP. METAB OLIC PANEL (14) globulin, total 2.6 g/dL 1.5-4. 5 Not Available [facility] ([facility]) [address] [facility] [place], [address], 02/20/2022 11:07:44 02/17/20 22 02/17/2022 COMP. METAB OLIC PANEL (14) A/G ratio 2.0 1.2-2. 2 Not Available [facility] ([facility]) [address] [facility] [place], [address], 02/20/2022 11:07:44 02/17/20 22 02/17/2022 COMP. METAB OLIC PANEL (14) bilirubin, total 0.8 mg/dL 0.0-1. 2 Not Available [facility] ([facility]) [address] [facility], [place], [address], 02/20/2022 11:07:44 02/17/20 22 02/17/2022 COMP. METAB OLIC PANEL (14) alkaline phosphatase 75 IU/L 44-121 Not Available [facility] ([facility]) [address], [place], [address], 02/20/2022 11:07:44 02/17/20 22 02/17/2022 COMP. METAB OLIC PANEL (14) AST (SGOT) 66 IU/L 0-40 above high normal Not Available [facility] ([facility]) [address] [place], [address], 02/20/2022 11:07:44 02/17/20 22 02/17/2022 COMP. METAB OLIC PANEL (14) ALT (SGPT) 47 IU/L 0-32 above high normal Not Available [facility] ([facility]) [address], [place], [address], 02/20/2022 11:07:44 02/17/20 22 02/17/2022 UA/M W/RFL X CULTU RE, ROUTI NE specific gravity 1.029 1.005- 1.030 Not Available [facility] ([facility]) [address], [place], [address], 02/20/2022 11:07:45 02/17/20 22 02/17/2022 UA/M W/RFL X CULTU RE, ROUTI NE pH 5.5 5.0-7. 5 Not Available [facility] ([facility]) [address] [place], [address], 02/20/2022 11:07:45 02/17/20 22 02/17/2022 UA/M W/RFL X CULTU RE, ROUTI NE urine-color Yellow yellow Not Available [facility] ([facility]) [address], [place], [address], 02/20/2022 11:07:45 02/17/20 22 02/17/2022 UA/M W/RFL X CULTDebra REBHARTI appearance Turbid clear abnormal Not Available [facility] ([facility]) [address] [facility], [place], [address], 02/20/2022 11:07:45 02/17/20 22 02/17/2022 UA/M W/RFL X CULTDebra REBHARTI WBC esterase 3+ negati ve abnormal Not Available [facility] ([facility]) [address] [place], [address], 02/20/2022 11:07:45 02/17/20 22 02/17/2022 UA/M W/RFL X CULTBHARTI GREEN protein 2+ negati ve/tra ce abnormal Not Available [facility] ([facility]) [address] [place], [address], 02/20/2022 11:07:45 02/17/20 22 02/17/2022 UA/M W/RFL X CULTBHARTI GREEN glucose Negati ve negati ve Not Available [facility] ([facility]) [address] [place], [address], 02/20/2022 11:07:45 02/17/20 22 02/17/2022 UA/M W/RFL X BHARTI TABARES ketones Trace negati ve abnormal Not Available [facility] ([facility]) [address] [place], [address], 02/20/2022 11:07:45 02/17/20 22 02/17/2022 UA/M W/RFL X BHARTI TABARES occult blood 3+ negati ve abnormal Not Available [facility] ([facility]) [address] [place], [address], 02/20/2022 11:07:45 02/17/20 22 02/17/2022 UA/M W/RFL X CULTU RE, ROUTI NE bilirubin Negati ve negati ve Not Available [facility] ([facility]) [address] [place], [address], 02/20/2022 11:07:45 02/17/20 22 02/17/2022 UA/M W/RFL X CULTU RE, ROUTI NE urobilinogen ,semi-qn 1.0 mg/dL 0.2-1. 0 Not Available [facility] ([facility]) [address] [place], [address], 02/20/2022 11:07:45 02/17/20 22 02/17/2022 UA/M W/RFL X CULTU RE, ROUTI NE nitrite, urine Negati ve negati ve Not Available [facility] ([facility]) [address] [place], [address], 02/20/2022 11:07:45 02/17/20 22 02/17/2022 UA/M W/RFL X CULTU RE, ROUTI NE microscopic examination See below: Micro scopi c was indic ated and was perfo rmed. Not Available [facility] ([facility]) [address] [place], [address], 02/20/2022 11:07:45 02/17/20 22 02/17/2022 UA/M W/RFL X CULTU RE, ROUTI NE WBC >30 /hpf 0 - 5 abnormal Not Available [facility] ([facility]) [address] [place], [address], 02/20/2022 11:07:45 02/17/20 22 02/17/2022 UA/M W/RFL X CULTU RE, ROUTI NE RBC >30 /hpf 0 - 2 abnormal Not Available [facility] ([facility]) [address] [place], [address], 02/20/2022 11:07:45 02/17/20 22 02/17/2022 UA/M W/RFL X CULTU RE, ROUTI NE epithelial cells (non renal) 0-10 /hpf 0 - 10 Not Available [facility] ([facility]) [address] [facility], [place], [address], 02/20/2022 11:07:45 02/17/20 22 02/17/2022 UA/M W/RFL X CULTU RE, ROUTI NE epithelial cells (renal) CABANA ATTENDANT Not Available [facility] ([facility]) [address] [facility], [place], [address], 02/20/2022 11:07:45 02/17/20 22 02/17/2022 UA/M W/RFL X CULTU RE, ROUTI NE casts None seen /lpf none seen Not Available [facility] ([facility]) [address] [facility], [place], [address], 02/20/2022 11:07:45 02/17/20 22 02/17/2022 UA/M W/RFL X CULTU RE, ROUTI NE cast type CABANA ATTENDANT Not Available [facility] ([facility]) [address] [facility], [place], [address], 02/20/2022 11:07:45 02/17/20 22 02/17/2022 UA/M W/RFL X CULTU RE, ROUTI NE crystals CABANA ATTENDANT Not Available [facility] ([facility]) [address] [facility], [place], [address], 02/20/2022 11:07:45 02/17/20 22 02/17/2022 UA/M W/RFL X CULTU RE, ROUTI NE crystal type CABANA ATTENDANT Not Available [facility] ([facility]) [address] [facility], [place], [address], 02/20/2022 11:07:45 02/17/20 22 02/17/2022 UA/M W/RFL X CULTU RE, ROUTI NE mucus threads CABANA ATTENDANT Not Available [facility] ([facility]) [address] [facility], [place], [address], 02/20/2022 11:07:45 02/17/20 22 02/17/2022 UA/M W/RFL X CULTU RE, ROUTI NE bacteria Few none seen/f ew Not Available [facility] ([facility]) [address] [facility], [place], [address], 02/20/2022 11:07:45 02/17/20 22 02/17/2022 UA/M W/RFL X CULTU RE, ROUTI NE yeast CABANA ATTENDANT Not Available [facility] ([facility]) [address] [facility], [place], [address], 02/20/2022 11:07:45 02/17/20 22 02/17/2022 UA/M W/RFL X CULTU RE, ROUTI NE trichomonas CABANA ATTENDANT Not Available [facility] ([facility]) [address] [facility], [place], [address], 02/20/2022 11:07:45 02/17/20 22 02/17/2022 UA/M W/RFL X CULTU RE, ROUTI NE comment CABANA ATTENDANT Not Available [facility] ([facility]) [address] [facility], [place], [address], 02/20/2022 11:07:45 02/17/20 22 02/17/2022 UA/M W/RFL X CULTU RE, ROUTI NE microscopic examination CABANA ATTENDANT Not Available [facility] ([facility]) [address] [facility], [place], [address], 02/20/2022 11:07:45 02/17/20 22 02/17/2022 UA/M W/RFL X CULTU RE, ROUTI NE urinalysis reflex Commen t This speci men has refle xed to a Urine Cultu re. Not Available [facility] ([facility]) [address] [facility], [place], [address], 02/20/2022 11:07:45 02/17/20 22 02/20/2022 URINE CULTU RE, ROUTI NE urine culture, routine Final report abnormal Not Available [facility] ([facility]) [address] [facility], [place], [address], 02/20/2022 11:07:45 02/17/20 22 02/20/2022 URINE CULTU RE, ROUTI NE result 1 Escher ichia coli abnormal Cefaz jessica <=4 ug/mL Cefaz jessica with an AMY <=16 predi cts susce ptibi lity to the oral agent s cefac jennifer, cefdi kia, cefpo doxim e, cefpr ozil, cefur oxime , cepha lexin , and lorac arbef when used for thera py of uncom plica leora urina ry tract infec tions due to E. coli, Klebs iella pneum oniae , and Prote us mirab ilis. Great er than 100,0 00 colon y formi ng units per mL Not Available [facility] ([facility]) [address] [facility], [place], [address], 02/20/2022 11:07:45 02/17/20 22 02/20/2022 URINE CULTU RE, ROUTI NE antimicrobia l susceptibili ty Commen t S = Susce ptibl e; I = Inter media te; R = Resis tant P = Posit nikia; N = Negat nikia MICS are expre ssed in micro grams per mL Antib iotic RSLT# 1 RSLT# 2 RSLT# 3 RSLT# 4 Amoxi cilli n/Cla vulan ic Acid S Ampic illin S Cefep rayshawn S Ceftr iaxon e S Cefur oxime S Cipro floxa alyse S Ertap enem S Genta micin S Imipe nem S Levof loxac in S Merop enem S Nitro furan toin S Piper acill in/Ta zobac trotter S Tetra cycli ne S Tobra mycin S Trime thopr im/Alclaa lfa S Not Available [facility] ([facility]) [address] [place], [address], 02/20/2022 11:07:45 04/19/20 22 04/20/2022 TSH RFX ON ABNOR MAL TO FREE T4 TSH 20.500 uIU/m L 0.450- 4.500 above high normal Not Available [facility] ([facility]) [address] [facility], [place], [address], 04/20/2022 08:25:21 04/19/20 22 04/20/2022 T4F T4,free (direct) 1.10 NG/dL 0.82-1 .77 Not Available [facility] ([facility]) [address] [place], [address], 04/20/2022 08:25:21 06/28/19 23 06/29/2022 TSH RFX ON ABNOR MAL TO FREE T4 TSH 16.500 uIU/m L 0.450- 4.500 above high normal Not Available [facility] ([facility]) [address] [facility], [place], [address], 06/29/2022 09:15:47 06/28/19 23 06/29/2022 T4F T4,free (direct) 0.99 NG/dL 0.82-1 .77 Not Available [facility] ([facility]) [address] [place], [address], 06/29/2022 09:15:47 06/14/20 21 05/26/2021 XR, ribs, unila teral , w/ PA chest No observ ation record ed. [email or web address] Not Available 2020 13:44:43 07/02/19 22 07/02/2021 MRI, thora cic spine , w/ contr ast No observ ation record ed. [facility] [address], [place], [address], 07/07/2021 15:06:58 10/15/19 22 10/13/2021 XR, hand, 3 or more view No observ ation record ed. [facility] [address] [facility] [address], [place], [address], 10/14/2021 17:31:59 11/19/19 22 11/17/2021 CT, angio gram, chest , w/ contr ast No observ ation record ed. [address] [address], [place], [address], 12/01/2021 10:57:18 12/18/19 22 12/08/2021 elect romyo gram + nerve condu ction study No observ ation record ed. [id number] Not Available 2021 13:26:51 01/27/20 22 01/26/2022 XR, chest No observ ation record ed. [address] [address], [place], [address], 01/27/2022 23:07:56 05/26/20 22 05/19/2022 XR, chest , 2 view No observ ation record ed. [email or web address] Tran [facility] (Radiology) [address] [facility] [place], [address], 06/01/2022 15:10:28 02/25/20 23 02/10/2023 PFT, compl ete No observ ation record ed. [address] (Resp Services) [address] [place] [address], [address], 02/25/2023 07:52:56 03/02/20 23 02/10/2023 PFT, compl ete No observ ation record ed. [address], [address], 03/02/2023 15:59:57 Result Notes None recorded. Problems Name Problem SNOMED Code Status Onset Date Resolution Date Notes Provider Name and Address Organization Details Recorded Time Hypokalemi a 93532939 Active 2021 Maddie Urbina MA [facility] [place] - [facility] 2 15:07:19 Mixed anxiety and depressive disorder 110778147 Active 2021 JAYNE [place], [place] - [facility] 2 15:07:28 Neuralgia 60808471 Active 2023 occipital neuralgia JAYNE [place] [facility] 5 09:56:25 Pain in lumbar spine 772119562 Active 2022 JAYNE [place] - [facility] 5 09:57:23 Problem Notes None recorded. Procedures Surgical History Date Name Laterality Status Provider Name and Address Organization Details Recorded Time 01/29/20 21 Colonoscopy completed Maddie Urbina MA [place] - [facility] 01/28/2021 15:07:48 06/19/19 09 Total hysterectomy completed Soni Milan APN, FNP-Inga Attn: Accounting[address] [place], [address], [facility] - [facility] 02/14/2024 10:52:37 laparoscopic sleeve gastrectomy completed Maddie Urbina [place] - [facility] 09/30/2020 14:13:10 total knee replacement completed Maddie Urbina [place] - [facility] 09/30/2020 14:12:41 operative procedure on foot completed Maddie Urbina MA [place] - [facility] 09/30/2020 14:13:49 Carpal tunnel surgery completed Maddie Urbina [place] - [facility] 09/30/2020 14:14:15 excision of recurrent ganglion cyst of wrist completed Maddie [place] - [facility] 09/30/2020 14:14:44 excision of melanoma completed Maddie Urbina [place] - [facility] 09/30/2020 14:23:53 Imaging Results None recorded. Procedure Notes None recorded. Medical Equipment None Reported. Allergies Allergen ID Allergen Name Allergen Category Reaction Reaction Severity Criticality Documentation Date Start Date Code Code System Note Provider Name and Address Organization Details Recorded Time 025792 Tegretol medicatio n rash Not available Not available 09/30/2020 9 RxNorm JAYNE [place], [place] - [facility] 14:05:36 848747 amitripty line medicatio n seizure Not available Not available 09/30/2020 704 RxNorm Maddie JAYNE [place] - [facility] 14:05:49 Medications Name Sig Start Date Stop Date Status Note LastModified by Organization Details LastModified Time hers finasteri de0.3%/mi noxidil6% Apply six sprays to the area of hair loss on the scalp once daily 05/19 completed Not Available Not Available Not Available losartan 50 mg tablet TAKE 1 TABLET BY MOUTH EVERY DAY 05/26 completed Not Available Not Available Not Available Tussin DM 10 mg-100 mg/5 mL oral syrup Take 10 mL every 4 hours by oral route as needed. 01/05 completed Not Available Not Available Not Available levothyro xine 137 mcg tablet TAKE 1 TABLET BY MOUTH ONCE DAILY 01/05 completed Not Available Not Available Not Available clonidine HCl 0.1 mg tablet Take 1 tablet twice a day by oral route. 01/18 completed Not Available Not Available Not Available ondansetr on HCl 8 mg tablet Take 1 tablet(s ) twice a day by oral route for 30 days. 02/15 completed duplicat e Not Available Not Available Not Available sulfameth oxazole 800 mg-trimet hoprim 160 mg tablet TAKE 1 TABLET BY MOUTH TWICE DAILY FOR 7 DAYS 03/31 completed Not Available Not Available Not Available tramadol 50 mg tablet active Not Available Not Available Not Available ondansetr on 8 mg disintegr ating tablet DISSOLVE 1 TABLET ON THE TONGUE EVERY DAY NEEDED Patien t needs to schedule appointm ent active Not Available Not Available No t Available levothyro xine 25 mcg tablet TAKE 1 TABLET BY MOUTH EVERY DAY 06/16 completed Not Available Not Available Not Available potassium chloride 20 mEq/15 mL oral liquid TAKE 15 ML BY MOUTH ONCE DAILY. 03/31 completed Not Available Not Available Not Available levothyro xine 75 mcg tablet TAKE 1 TABLET BY MOUTH EVERY DAY 10/15 completed Not Available Not Available Not Available levothyro xine 100 mcg tablet Take 1 tablet every day by oral route for 90 days. 04/25 completed Not Available Not Available Not Available levothyro xine 88 mcg tablet TAKE 1 TABLET BY MOUTH EVERY DAY 05/19 completed Not Available Not Available Not Available alprazola m 0.5 mg tablet TAKE 1 TABLET BY MOUTH 1 HOUR PRIOR TO PROCEDUR E. TAKE 1 TABLET BY MOUTH 30 MINUTES PRIOR TO PROCEDUR E. BRING THIRD TABLET TO PROCEDUR E active Not Available Not Available No t Available goldensea l 500 mg capsule Take 1 capsule every day by oral route. 01/05 completed Not Available Not Available Not Available levothyro xine 50 mcg tablet Take 1 tablet(s ) every day by oral route. 07/02 completed Not Available Not Available Not Available levothyro xine 125 mcg tablet TAKE 1 TABLET BY MOUTH EVERY DAY active Not Available Not Available No t Available levothyro xine 150 mcg tablet TAKE 1 TABLET BY MOUTH DAILY active Not Available Not Available No t Available losartan 25 mg tablet TAKE 1 TABLET BY MOUTH EVERY DAY 03/31 completed Not Available Not Available Not Available oxycodone 5 mg capsule TAKE 1 CAPSULE BY MOUTH EVERY 8 HOURS NEEDED FOR PAIN 06/16 completed Not Available Not Available Not Available hydrochlo rothiazid e 12.5 mg capsule TAKE 1 CAPSULE BY MOUTH EVERY DAY active Not Available Not Available No t Available chlordiaz epoxide 10 mg capsule TAKE 1 CAPSULE BY MOUTH THREE TIMES DAILY active Not Available Not Available No t Available codeine 10 mg-guaife nesin 100 mg/5 mL oral liquid TAKE 10 ML BY MOUTH FOUR TIMES DAILY NEEDED 01/05 completed Not Available Not Available Not Available levothyro xine 200 mcg tablet Take 1 tablet every day by oral route for 90 days. 04/23 completed Not Available Not Available Not Available Cranberry Concentra te 500 mg capsule Take 2 capsules every day by oral route for 90 days. 05/19 completed Not Available Not Available Not Available cefuroxim e axetil 500 mg tablet TAKE 1 TABLET BY MOUTH TWICE DAILY FOR 10 DAYS 02/21 completed Not Available Not Available Not Available albuterol sulfate HFA 90 mcg/actua tion aerosol inhaler INHALE 1 PUFF EVERY 4 HOURS NEEDED FOR SHORTNES S OF BREATH OR WHEEZING active Not Available Not Available No t Available oxybutyni n chloride 5 mg tablet TAKE 2 TABLETS BY MOUTH TWICE DAILY 10/13 completed Not Available Not Available Not Available losartan 100 mg tablet TAKE 1 TABLET BY MOUTH EVERY DAY Patien t needs to schedule appointm ent active Not Available Not Available No t Available naproxen 500 mg tablet TAKE 1 TABLET BY MOUTH TWICE DAILY NEEDED FOR PAIN 05/19 completed Not Available Not Available Not Available levothyro xine 112 mcg tablet TAKE 1 TABLET BY MOUTH EVERY DAY 06/29 completed Not Available Not Available Not Available ginseng 250 mg capsule Take 1 capsule twice a day by oral route. 01/05 completed Not Available Not Available Not Available oxycodone 5 mg tablet 10/13 completed Not Available Not Available Not Available escitalop belgica 10 mg tablet TAKE 1 TABLET BY MOUTH EVERY DAY 2022 active Not Available Not Available Not Avai lable cyclobenz aprine 5 mg tablet TAKE 1 TABLET BY MOUTH EVERY DAY NEEDED 03/31 completed Not Available Not Available Not Available nitrofura ntoin monohydra te/macroc rystals 100 mg capsule TAKE 1 CAPSULE BY MOUTH TWICE DAILY FOR 7 DAYS 05/19 completed Not Available Not Available Not Available cefdinir 250 mg/5 mL oral suspensio n 02/15 completed Not Available Not Available Not Available solifenac in 5 mg tablet TAKE 1 TABLET BY MOUTH EVERY DAY active Not Available Not Available No t Available pregabali n 75 mg capsule TAKE ONE CAPSULE BY MOUTH TWICE A DAY 06/16 completed PAIN MANAGMEN T Not Available Not Available Not Available pregabali n 100 mg capsule 01/05 completed Not Available Not Available Not Available pregabali n 150 mg capsule 01/05 completed Not Available Not Available Not Available pregabali n 200 mg capsule active Not Available Not Available Not Available Vitamin B-12 active Not Available Not Available Not Available Liver Complex once daily 01/05 completed Not Available Not Available Not Available Bariatric Multivita mins active Not Available Not Available Not Available ID NOW COVID-19 Test Kit TEST DIRECTED 02/15 completed Not Available Not Available Not Available Vitals Date Recorded Body height Body mass index (BMI) Body weight Respiratory rate Body temperature Oxygen saturation Oxygen saturation in Arterial blood by Pulse oximetry Heart rate Systolic blood pressure Diastolic blood pressure Provider Name and Address Organization Details Last Updated DateTime 2 170.18 cm 32.9 kg/m2 58915.5 3 g 16 /min 96.9 [degF] 97 % 97 % 99 /min 132 mm[Hg] 90 mm[Hg] Lore Sadaf ANGELICA [place] - [facility] 2 16:33:05 Date Recorded Systolic blood pressure Diastolic blood pressure Provider Name and Address Organization Details Last Updated DateTime 01/05/2023 150 mm[Hg] 100 mm[Hg] Kaleb Callahan MD Attn: Accounting[address] [place], [address], [facility] 01/05/2023 16:04:57 Date Recorded Body height Body mass index (BMI) Body weight Oxygen saturation Oxygen saturation in Arterial blood by Pulse oximetry Heart rate Respiratory rate Body temperature Provider Name and Address Organization Details Last Updated DateTime 3 170.18 cm 31.6 kg/m2 82165.6 6 g 97 % 97 % 115 /min 16 /min 96.9 [degF] Maddie Urbina MA [place] - [facility] 3 15:11:36 Date Recorded Body height Body mass index (BMI) Body weight Body temperature Heart rate Respiratory rate Systolic blood pressure Diastolic blood pressure Provider Name and Address Organization Details Last Updated DateTime 2 170.18 cm 32.9 kg/m2 17434.4 g 96.9 [degF] 80 /min 16 /min 132 mm[Hg] 84 mm[Hg] Teodora Galindo MA [place] - [facility] 2 15:55:30 Date Recorded Systolic blood pressure Diastolic blood pressure Provider Name and Address Organization Details Last Updated DateTime 05/19/2022 160 mm[Hg] 100 mm[Hg] Kaleb Callahan MD Attn: Accounting[address] [place], [address], [facility] 05/19/2022 14:58:29 Date Recorded Body height Body mass index (BMI) Body weight Oxygen saturation Oxygen saturation in Arterial blood by Pulse oximetry Heart rate Body temperature Respiratory rate Provider Name and Address Organization Details Last Updated DateTime 2 170.18 cm 31.2 kg/m2 74183.0 1 g 98 % 98 % 96 /min 98 [degF] 16 /min Laura hurst MA [facility] 2 14:38:33 Date Recorded Body height Body mass index (BMI) Body weight Heart rate Respiratory rate Body temperature Systolic blood pressure Diastolic blood pressure Provider Name and Address Organization Details Last Updated DateTime 1 170.18 cm 32.1 kg/m2 67589.4 4 g 88 /min 16 /min 96.9 [degF] 124 mm[Hg] 88 mm[Hg] Maddie Urbina MA [facility] 17:17:28 Social History Question Answer Notes LastModified by Organizat ion Details LastModified Time Tobacco Smoking Status Current Every Day Smoker Maddie Urbina MA null, [facility] 09/30/2020 14:17:52 Do You Have An Advance Directive? No Information not available 09/30/2020 How Many Years Have You Consumed Alcohol? 34 Social In The Past Information not available 09/30/2020 Are You Blind Or Do You Have Difficulty Seeing? No Information not available 09/30/2020 What Is Your Level Of Caffeine Consumption? None Information not available 09/30/2020 In The 14 Days Before Symptom Onset, Have You Had Close Contact With A Laboratory-confir med COVID-19 While That Case Was Ill? No Information not available 09/30/2020 In The 14 Days Before Symptom Onset, Have You Had Close Contact With A Person Who Is Under Investigation For COVID-19 While That Person Was Ill? No Information not available 09/30/2020 Have You Been To An Area Known To Be High Risk For COVID-19? No Information not available 09/30/2020 Are You Deaf Or Do You Have Serious Difficulty Hearing? No Information not available 09/30/2020 Are There Any Guns Present In Your Home? No Information not available 09/30/2020 What Was The Date Of Your Most Recent Tobacco Screening? 01/05/2023 Information not available 01/05/2023 How Many Children Do You Have? 1 Information not available 09/30/2020 What Is Your Current Pack Years? 30ormorepac darren Information not available 09/30/2020 Do You Use Protection During Sex? No Information not available 09/30/2020 What Is Your Relationship Status? PT. Has Been Twice And Last 3 Times Total Information not available 09/30/2020 Do You Use Your Seat Belt Or Car Seat Routinely? Yes Information not available 09/30/2020 Are You Sexually Active? Yes Information not available 09/30/2020 Do You Have Smoke And Carbon Monoxide Detectors In Your Home? Yes Information not available 09/30/2020 At What Age Did You Start Smoking Tobacco? 25 Information not available 09/30/2020 Are You Passively Exposed To Smoke? No Information no t available 09/30/2020 How Much Tobacco Do You Smoke? 0.5 PPD Information not available 09/30/2020 Do You Use Sunscreen Routinely? Yes Information not available 09/30/2020 Has Tobacco Cessation Counseling Been Provided? Yes Information not available 09/30/2020 On What Date Was Tobacco Cessation Counseling Provided? 01/05/2023 Information not available 01/05/2023 How Many Years Have You Smoked Tobacco? 30 Information not available 09/30/2020 How Many Years Have You Used E-cigarettes Or Vape? 2 Information not available 09/30/2020 Sex: Female Functional Status Question Answer Note LastModified by Organizat ion Details LastModified Time Do you use any illicit or recreational drugs? Yes marijuana socially Information not available 09/30/2020 Do you or have you ever used any other forms of tobacco or nicotine? Yes Information not available 09/30/2020 What is your level of alcohol consumption? Heavy crystal light w/ 2 to 3 shots of vodka in the evening. Information not available 01/05/2023 Do you or have you ever used smokeless tobacco? Never used smokeless tobacco Information not available 09/30/2020 Are you currently employed? Yes Information not available 09/30/2020 Are you able to care for yourself? Yes Information not available 09/30/2020 What is your occupation? [employer] Information not available 09/30/2020 Do you or have you ever used e-cigarettes or vape? Former user of electronic cigarettes Information not available 09/30/2020 What is your exercise level? None Information not available 09/30/2020 Mental Status Question Answer Note LastModified by Organization D etails LastModified Time Do you feel stressed (tense, restless, nervous, or anxious, or unable to sleep at night)? [id number] Information not available 09/30/2020 Family History Relationship Description Onset Age of this Age Resolved Age Notes LastModified by Organization Details LastModified Time Maternal Uncle Harmful pattern of use of alcohol erobbinsma Not available 09/30 14:08:34 Son Attention deficit hyperactivit y disorder erobbinsma Not available 09/17 14:08:47 Son Disorder of thyroid gland erobbinsma Not available 09/30 14:10:07 Maternal Grandfather Cerebrovascu lar accident erobbinsma Not available 14:09:10 Maternal Grandfather Myocardial infarction erobbinsma Not available 09/17 14:11:27 Maternal Grandfather Malignant tumor of colon erobbinsma Not available 09/30 14:11:59 Paternal Uncle Dementia erobbinsma Not available 2020 14:09:26 Sister Depressive disorder erobbinsma Not available 09/30 14:09:39 Maternal Grandmother Depressive disorder erobbinsma Not available 09/30 14:09:49 Maternal Grandmother Osteoporosis erobbinsma Not availabl e 09/30/2020 14:11:17 Father Atrial fibrillation erobbinsma Not available 14:10:22 Father Hypercholest erolemia erobbinsma Not available 09/30 14:10:52 Father Hypertensive disorder erobbinsma Not available 09/30 14:11:02 Mother Heart murmur erobbinsma Not jhon ilable 09/30/2020 14:10:37 Mother Hypercholest erolemia erobbinsma Not available 09/30 14:10:52 Mother Hypertensive disorder erobbinsma Not available 09/30 14:11:02 Maternal Aunt Malignant tumor of colon erobbinsma Not available 09/30 14:11:42 Notes:No new reported 1, 03/31/21, 06/16/21, 01/05/23 Medical History Condition Response Coronary Artery Disease N Other N Atrial Fibrillation N High Blood Pressure N Thyroid Problems Y Kidney or Bladder Problems N GI Problems Y Depression Y COPD N Blood Clots N Skin Problems N Eating Disorder N Anemia N Heart Attack (SD) N Anxiety Disorder Y Diabetes N Muscle, Joint, or Bone Problems Y Seizures/Epilepsy N Acid Reflux (GERD) Y Cancer N Stroke Y Asthma N Allergies Y ADHD N Substance Abuse Y High Cholesterol N Hepatitis N Liver Disease N Schizophrenia N Headaches Y Heart Failure N Osteoporosis N Gynecological HistoryNo gynecological history recorded. Obstetrics History GPAL:G 0 P 0 0 0 0 Immunizations Vaccine Type Date Status Note Provider Nam e and Address Organization Details Recorded Time SARS-COV-2 (COVID-19) vaccine, UNSPECIFIED 02/01/2021 [place] [facility] 02/15/2021 12:24:28 SARS-COV-2 (COVID-19) vaccine, UNSPECIFIED 03/01/2021 [place] [facility] 03/31/2021 15:24:18 Influenza, split virus, quadrivalent, PF 03/31/2021 [place] [facility] 03/31/2021 15:46:47 Past Encounters Encounter ID Performer Location Encounter Start Date Encounter Closed Date Diagnosis/Indication Diagnosis SNOMED-CT Code Diagnosis ICD10 Code Diagnosis Note [id number] MD Marc Ashraf 14 IM 4 [facility] [place] [address] 09/30/2020 13:42:53 10/01/2020 18:05:36 Hypothyroidism 93630236 E03.9 History of bariatric surgical procedure 987978232 Z98.84 done in 2017 Screening for malignant neoplasm of colon 214656543 Z12.11 Headache 25758597 R51.9 Obesity 350809174 E66.9 Screening mammography 24 236784 Z12.31 Insomnia 264175727 G47.0 0 Chronic diarrhea 8961427 09 K52.9 [id number] MD Marc Ashraf 14 IM 4 [facility] [place] [address] 02/15/2021 12:05:22 02/16/2021 12:47:44 Essential hypertension 79616139 I10 History of urinary tract infection 6186498941 107 Z87.440 Hypokalemia 82169606 E87 .6 Under care of neurologist 191286510 Z76.89 to be seen by Dr. Arteaga on 02-24-2021 Urinary incontinence 165 146830 R32 [id number] MD Marc Ashraf 14 IM 4 [facility] [place] [address] 03/31/2021 15:01:54 04/01/2021 15:22:20 Influenza immunization advised 848696565 Z71.89 Urinary symptoms 0064768 08 R39.9 Recurrent urinary tract infection 428354773 N39.0 Current drinker 241646 Z72.89 Screening mammography 24 877882 Z12.31 Hypothyroidism 17840673 E03.9 [id number] MD Marc Ashraf 14 IM 4 [facility] [place] [address] 06/16/2021 17:08:09 06/17/2021 12:36:00 History of fall 286714163 Z91.81 Hypothyroidism 95455091 E03.9 Mixed anxi ety and depressive disorder 520400161 F41.8 Alcohol wi thdrawal without complication 33329915 F10.230 Normal grief reaction 27 1075433 F43.20 her less than two years ago [id number] MD Marc Ashraf 14 IM 4 [facility] [place] [address] 10/13/2021 15:57:03 10/18/2021 14:16:29 Hypothyroidism 51518625 E03.9 Injury of hand 065687043 S69.91XA Liver enzy mes level above reference range 765038346 R74.01 Urinary incontinence 165 960346 N39.3 Current drinker 637731 Z72.89 [id number] MD Marc Ashraf 14 IM 4 [facility] [place] [address] 02/16/2022 15:33:51 02/17/2022 16:03:47 Hypothyroidism 85329178 E03.9 Hypokalemia 29251684 E87 .6 Dysuria 55258140 R30.9 Screening mammography 24 890591 Z12.31 UTD Screening for malignant neoplasm of colon 821714808 Z12.11 colonoscop y done on 01-28-2021 Pain of jerri int of pelvis and/or upper leg 158050781 M25.559 Under care of electrostatic painter 628680290 Z76.89 APG--in [place] [id number] MD Marc Ashraf 14 IM 4 [facility] [place] [address] 05/19/2022 14:16:42 05/24/2022 08:51:50 Chronic cough 91399073 R05.3 Normal grief reaction 27 5820575 F43.20 her less than two years ago Hypothyroidism 20430947 E03.9 Smoker 75647260 F17.200 6 cigarettes /day Screening for malignant neoplasm of colon 813211697 Z12.11 colonoscop y done on 01-28-2021- -good until January 2024 Essential hypertension 54054928 I10 Screening mammography 24 382281 Z12.31 UTD [id number] MD Marc Ashraf 14 IM 4 [facility] [place] [address] 01/05/2023 15:00:37 01/10/2023 11:09:40 Mixed anxiety and depressive disorder 654290534 F41.8 PHQ=9/, ALEXANDER=5/ Obesity 792837990 E66.9 Smoker 72644537 F17.200 6 cigarettes /day Essential hypertension 60908516 I10 Chronic cough 05625304 R 05.3 Hypothyroidism 74697563 E03.9 pt is followed by an endocrinol ogist Health Concerns Section Related Observation LastModified by Organization Detai ls LastModified Time None Recorded Concern Status LastModified by Organization Details LastModified Time None Recorded Advance Directives Directive N: Payers Encounter Date Sequence Insurance Name Policy Number Policy Gudino Covered Member ID Gudino Member ID Guarantor Name 06/16/2021 1 [facility] ON OR AFTER 12/17/20 (MEDICAID REPLACEMENT - HMO) [place] [id number] [place] 10/13/2021 1 [facility] ON OR AFTER 12/17/20 (MEDICAID REPLACEMENT - HMO) Jazlyn [place] [id number] [place]lyn [place] 02/16/2022 1 [facility] ON OR AFTER 12/17/20 (MEDICAID REPLACEMENT - HMO) J[place]lyn [place] [id number] Jazlyn Nadira 05/19/2022 1 [facility] ON OR AFTER 12/17/20 (MEDICAID REPLACEMENT - HMO) Jazlyn Nadira [id number] Jazlyn [place] 01/05/2023 1 [facility] ON OR AFTER 12/17/20 (MEDICAID REPLACEMENT - HMO) Jazlyn Nadira [id number] Jazlyn [place] Notes Date Note Type Note Provider Name and Address Organization Details Recorded Time 06/16/2021 text/html Follow up to recent fall, resulting in fx of two ribs on her right side. Kaleb Callahan MD Attn: Accounting,[address] [place], [address], [facility] 06/17/2021 00:00:18 10/13/2021 text/html Pt presents for concerns about injury at right hand, her hand caught in a door due to windy weather. Kaleb Callahan MD Attn: Accounting,[address] [place], [address], [facility] 10/15/2021 16:02:13 02/16/2022 text/html As per intake note. Clary Willis RN [facility], [facility] 02/22/2022 17:25:09 05/19/2022 text/html Pt describes a cough now for more than one month. Kaleb Callahan MD Attn: Accounting,[address] [facility], [place], [address], [facility] 05/23/2022 15:59:07 01/05/2023 text/html Per intake note. Kaleb bean MD Attn: Accounting,[address] [facility], [place], [address], [facility] 01/09/2023 16:55:02 OBGyn Episode No OBEpisode recorded.
--- OUTSIDE RECORDS SUMMARY | 2024-11-27 11:07 | XMS_ITS | Encounter Summary ---
Author Organization [facility] Facility Care Team Providers Care Cytology Manager Name Role Phone Brittney Arredondo MD Primary Care Provider [phone] Miscellaneous, Not In File Unavailable Unava ilable Unknown, Notinfile Primary Care Provider Unavail able Juidth Lo MD Primary Care Provider [phone] Kaleb Atkinson MD Primary Care Provider [phone] Kristyn Champagne MD Primary Care Provider [phone] Peggy Ybarra DPM Unavailable [phone] Encounter Details Date Type Department Care Team (Latest Contact Info) Description 12/29/2016 Orders Only [facility] CLINCONV ProviderMono MD [address] [place] [address] Social History Tobacco Use Types Packs/Day Years Used Date Smoking Tobacco: Every Day Alcohol Use Standard Drinks/Week Comments No 0 (1 standard drink = 0.6 oz pur e alcohol) Comments Unknown Sex and Gender Information Value Date Recorded Sex Assigned at Not on file 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 us Historical Provider Final Res ult * CARDIOLOGY REPORT (01/03/2017 12:00 AM CDT) Anatomical Region Laterality Modality Other Narrative 01/03/2017 12:00 AM CDT Ordered by an unspecified provider. us Historical Provider CV CARDIAC SERVICES PROCE SHIRA Final Result documented in this encounter Visit Diagnoses Not on filedocumented in this encounter Care Teams Cytology Manager Relationship Specialty Start Date End Date Brittney Arredondo MD [address] [place] [address] PCP - General 10/05/16 01/30/17 Unknown, Notinfile PCP - General 01/31/17 09/14/17 Judith Lo MD PCP - General 09/15/17 11/30/20 Kaleb Atkinson MD PCP - General Family Medicine 12/01/20 11/12/24 Kristyn Champagne [place] [address] PCP - General Family Medicine 11/13/24 Miscellaneous, Not In File 10/05/16 Peggy Ybarar DPM [address] [place] [address] Consulting Physician Foot and Ankle Surg 11/22/24 documented as of this encounter
--- OUTSIDE RECORDS SUMMARY | 2024-11-27 11:07 | XMS_ITS | Encounter Summary ---
Author Organization [facility] Facility Care Team Providers Care Gate Shear Operator Name Role Phone Caden Hwang MD Primary Care Provider [phone] Miscellaneous, Not In File Primary Care Provider Unavailable Brittney Arredondo MD Primary Care Provider + [phone] Miscellaneous, Not In File Unavailable Unava ilable Caden Hwang MD Unavailable [phone] Unknown, Notinfile Primary Care Provider Unavail able Judith Lo MD Primary Care Provider [phone] Kaleb Atkinson MD Primary Care Provider [phone] Kristyn Champagne MD Primary Care Provider [phone] Peggy Ybarra DPM Unavailable [phone] Encounter Details Date Type Department Care Team (Latest Contact Info) Description 01/11/2016 Orders Only [facility] CLINCONV ProviderMono MD [address] [place] [address] Social History Tobacco Use Types Packs/Day Years Used Date Smoking Tobacco: Never Assessed Comments Unknown Sex and Gender Information Value Date Recorded Sex Assigned at Not on file 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 us Historical Provider Final Res ult * PROCEDURE - RESULT (01/11/2016 12:00 AM CDT) Narrative 01/11/2016 12:00 AM CDT Ordered by an unspecified provider. Historical Provider Final Res ult documented in this encounter Visit Diagnoses Not on filedocumented in this encounter Care Teams Gate Shear Operator Relationship Specialty Start Date End Date Caden Hwang MD [address] [facility] [address] [place] [address] PCP - General 01/31/14 09/18/16 Miscellaneous, Not In File PCP - General 09/19/16 10/04/16 Brittney Arredondo MD [address] [place] [address] [address] [place] [address] PCP - General 10/05/16 01/30/17 Unknown, Notinfile PCP - General 01/31/17 09/14/17 Judith Lo MD PCP - General 09/15/17 11/30/20 Kaleb Atkinson MD PCP - General Family Medicine 12/01/20 11/12/24 Kristyn Champagne MD [address] [place] [address] [place] [address] PCP - General Family Medicine 11/13/24 Miscellaneous, Not In File 10/05/16 Caden Hwang MD [address] [address] 09/19/16 10/04/16 Peggy Ybarra DPM [address] [place] [address] Consulting Physician Foot and Ankle Surg 11/22/24 documented as of this encounter
--- OUTSIDE RECORDS SUMMARY | 2024-11-27 11:07 | XMS_ITS | Continuity of Care Document ---
Author Organization [facility] Address [address] [place] [address] Phone Care Team Providers Care Consumer Relations Complaint Clerk Name Role Phone Donato Robins MD Unavailable [...] tid or qid prn pain - Active LISINOPRIL (unknown strength) Not Available - Active HYDROCHLOROTHIAZIDE (unknown strength) Not Available - Active OMEPRAZOLE (unknown strength) Not Available - Active ZYRTEC (unknown strength) Not Available - Active ZOLOFT [...] Providers Copied on Encounter [facility], [address], [place], [address], [place] tel:[phone] [facility] No Information [address] Jul[address] Sew[address]. [address] , [place], [place], [id number] . tel: [phone] [facility], [address] [address], [place], [address], [place] tel:[phone] [facility] No Information 6 Dusdevon Campa. [address] , [place], [place], [address] . tel: [phone] OFFICE/OUTPAT IENT VISIT EST [facility], [address] [address], [place], [address], [place] tel:[phone] [facility] Primary osteoarthritis of left kneePrimary osteoarthritis of right knee 6 Dusek Loeksh. [address] , [place], [place], [address] . tel: [phone] [facility], [address] [address], [place], [address], [place] tel:[phone] [facility] No Information 6 Sampson Bennett. [address] , [place], [place], [address] . tel: [phone] OFFICE/OUTPAT IENT VISIT EST [facility], [address], [address], [place] tel:[phone] [facility] Primary osteoarthritis of right kneePrimary osteoarthritis of left knee 5 Pawel Taryn. [address], [id number] . tel: [phone] OFFICE/OUTPAT IENT VISIT EST [facility], [address] [address], [place], [address], [place] tel:[phone] [facility] LBP and right leg pain (chief complaint) Lumbar radiculopathyDis c disease, degenerative, lumbar or lumbosacral 7-201 5 Sam[address] Bennett. [address] , [place], [place], [address] . tel: [phone] Referring Provider: Brittney Xiong [address] [place] [address] [address], [place], [address] . tel:[phone] OFFICE/OUTPAT IENT VISIT EST [facility], [address], [address], [place] tel:[phone] [facility] knee arthritisObesity , Morbidhip greater trochanteric bursitis 8 5 Prabha Campa. [address] [facility], [place], [place], [address] . tel: [phone] OFFICE/OUTPAT IENT VISIT EST [facility], [address], [address], [place] tel:[phone] [facility] LBP and right leg pain (chief complaint) Lumbar RadiculopathyDeg eneration of lumbar or lumbosacral intervertebral disc 5 Sampson Montesok. [address] [facility], [place], [place], [address] . tel: [phone] [facility], [address], [address], [place] tel:[phone] [facility] Lumbar Radiculopathy 4 5 Julienne [address]. [address] , [place], [place], [address] . tel: [phone] OFFICE CONSULTATION [facility], [address], [address], [place] tel:[phone] [facility] LBP and right leg pain (chief complaint) Lumbar RadiculopathyDeg eneration of lumbar or lumbosacral intervertebral disc 0-201 4 Sampson Bennett. [address] [place], [place], [address] . tel: [phone] OFFICE/OUTPAT IENT VISIT EST [facility], [address], [address], tel:[phone] [facility] I am sore all over today after the fall down the steps (chief complaint) ObesityLow Back Pain 4 Julienne Sewell. [address] [facility] [place], [address] . tel:[phone] OFFICE/OUTPAT IENT VISIT NEW [facility], [address], [facility], tel:[phone] [facility] My back and legs bother me (chief complaint) Obesity, MorbidLumbar Radiculopathy 4 Julienne Sewell. [address] [place], [place], [address] . tel:[phone] Referring Provider: Caden Doss, [address], [place], [address] . tel:[phone] [facility], [address], [address], tel:[phone] [facility] No Information 4 Jul[address] Sew[address]. [address] [place], [place], [address] . tel:[phone] Family History Family Member Type Diagnosis Age At Onset Son Problem (finding) Arthritis Father Problem (finding) hypertension Son Problem (finding) Crohn's disease Son Problem (finding) seizure disorder Son Problem (finding) Maternal history of esteban betes mellitus Mother Problem (finding) Heart disease Payers Payer name Insurance type Covered constitution party ID Authoriza tion(s) Blue Access PPO E2 OT [id number] Social History Type Description Quantity Date Captured [...] 06/02/2014 ordered Future Order: Lab Order BMP ([id number]), O rdered on: Ordered History Of Present [...] Related to Primary osteoarthritis of right knee Home exercise program. Related t o Lumbar radiculopathy Rest, ice and elevate. Related t o Lumbar radiculopathy Take medication/NSAID [...]
--- OUTSIDE RECORDS SUMMARY | 2024-11-27 11:07 | XMS_ITS | Encounter Summary ---
Author Organization [facility] Facility Care Team Providers Care Physics And Astronomy Professor Name Role Phone Brittney Arredondo MD Primary Care Provider [phone] Miscellaneous, Not In File Unavailable Unava ilable Unknown, Notinfile Primary Care Provider Unavail able Judith Lo MD Primary Care Provider [phone] Kaleb Atkinson MD Primary Care Provider [phone] Kristyn Champagne MD Primary Care Provider [phone] Peggy Ybarra DPM Unavailable [phone] Encounter Details Date Type Department Care Team (Latest Contact Info) Description 10/24/2016 Orders Only [facility] CLINCONV ProviderMono MD [address] [place] [address] Social History Tobacco Use Types Packs/Day Years Used Date Smoking Tobacco: Every Day Alcohol Use Standard Drinks/Week Comments No 0 (1 standard drink = 0.6 oz pur e alcohol) Comments Unknown Sex and Gender Information Value Date Recorded Sex Assigned at Not on file 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 us Historical Provider Final Res ult documented in this encounter Visit Diagnoses Not on filedocumented in this encounter Care Teams Physics And Astronomy Professor Relationship Specialty Start Date End Date Brittney Arredondo MD [address] [place] [address] PCP - General 10/05/16 01/30/17 Unknown, Notinfile PCP - General 01/31/17 09/14/17 Judith Lo MD PCP - General 09/15/17 11/30/20 Kaleb Atkinson MD PCP - General Family Medicine 12/01/20 11/12/24 Kristyn Champagne MD [address] [place] [address] PCP - General Family Medicine 11/13/24 Miscellaneous, Not In File 10/05/16 Peggy Ybarra DPM [address] [place] [address] Consulting Physician Foot and Ankle Surg 11/22/24 documented as of this encounter
== END 2024-11-27 09:51 | disposition home or self-care (01) ==
PROVIDERS: PCP Family Medicine; Visit Provider Nurse Practitioner Family
DX: M54.50 Low back pain, unspecified (principal); M43.06 Spondylolysis, lumbar region
CPT/HCPCS: 72148

== ENCOUNTER 2025-01-08 09:45 | Outpatient (CLI) | payer OTHER, SELFPAY ==
--- NOTE | ~2025-01-08 | XR_ITS ---
EXAMINATION: XR abdomen obstructive series DATE: 01/08/2025 10:23 INDICATION: Left lower quadrant pain TECHNIQUE: Supine and upright views of the abdomen. FINDINGS: 12/19/2011 The visualized lung parenchyma is normal.. There is a nonobstructive bowel gas pattern. Gas and stool are seen throughout the colon to the level of the rectum. There is no free air. 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 IMPRESSION: 1. No acute abdominal abnormality. Reviewed, dictated and finalized at location A.
--- OUTSIDE RECORDS SUMMARY | 2025-01-08 09:53 | XMS_ITS | Encounter Summary ---
Author Organization [facility] Facility Care Team Providers Care Formal Wear Rental Clerk Name Role Phone Caden Hwang MD Primary Care Provider [phone] Miscellaneous, Not In File Primary Care Provider Unavailable Brittney Arredondo MD Primary Care Provider [phone] Miscellaneous, Not In File Unavailable Unava ilable Caden Hwang MD Unavailable [phone] Unknown, Notinfile Primary Care Provider Unavail able Judith Lo MD Primary Care Provider [phone] Kaleb Atkinson MD Primary Care Provider [phone] Kristyn Champagne MD Primary Care Provider [phone] Peggy Ybarra DPM Unavailable [phone] Encounter Details Date Type Department Care Team (Latest Contact Info) Description 01/06/2016 Orders Only [facility] CLINCONV ProviderMono MD [address] [place] [address] Social History Tobacco Use Types Packs/Day Years Used Date Smoking Tobacco: Never Assessed Comments Unknown Sex and Gender Information Value Date Recorded Sex Assigned at Not on file 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 Gender Identity Not on file Sexual Orientation [...] on filedocumented in this encounter Care Teams Formal Wear Rental Clerk Relationship Specialty Start Date End Date Caden Hwang MD [address] [facility] [address] [place] [address] PCP - General 01/31/14 09/18/16 Miscellaneous, Not In File PCP - General 09/19/16 10/04/16 Brittney Arredondo MD [address] [place] [address] [address] [place] [address] PCP - General 10/05/16 01/30/17 Unknown, Notinfile PCP - General 01/31/17 09/14/17 Judith Lo MD PCP - General 09/15/17 11/30/20 Kaleb Atkinson MD PCP - General Family Medicine 12/01/20 11/12/24 Kristyn Champagne MD PCP - General Family Medicine 11/13/24 Miscellaneous, Not In File 10/05/16 Caden Hwang MD [address] [facility] [address] [place] [address] 09/19/16 10/04/16 Peggy Ybarra, TINO [address] [place] [address] Consulting Physician Foot and Ankle Surg 11/22/24 documented as of this encounter
--- OUTSIDE RECORDS SUMMARY | 2025-01-08 09:53 | XMS_ITS | Encounter Summary ---
Author Organization [facility] Facility Care Team Providers Care Aircraft Motor Mechanic Name Role Phone Brittney Arredondo MD Primary Care Provider [phone] Miscellaneous, Not In File Unavailable Unava ilable Unknown, Notinfile Primary Care Provider Unavail able Judith Lo MD Primary Care Provider [phone] Kaleb Atkinson MD Primary Care Provider [phone] Kristyn Champagne MD Primary Care Provider [phone] Peggy Ybarra DPM Unavailable [phone] Encounter Details Date Type Department Care Team (Latest Contact Info) Description 12/29/2016 Orders Only [facility] CLINCONV ProviderMono MD [address] [place] [address] Social History Tobacco Use Types Packs/Day Years Used Date Smoking Tobacco: Every Day Alcohol Use Standard Drinks/Week Comments No 0 (1 standard drink = 0.6 oz pur e alcohol) Comments Unknown Sex and Gender Information Value Date Recorded Sex Assigned at Not on file 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 Gender Identity Not on file Sexual Orientation [...] on filedocumented in this encounter Care Teams Aircraft Motor Mechanic Relationship Specialty Start Date End Date Brittney Arredondo MD [address] [place] [address] PCP - General 10/05/16 01/30/17 Unknown, Notinfile PCP - General 01/31/17 09/14/17 Judith Lo MD PCP - General 09/15/17 11/30/20 Kaleb Atkinson MD PCP - General Family Medicine 12/01/20 11/12/24 Kristyn Champagne MD PCP - General Family Medicine 11/13/24 Miscellaneous, Not In File 10/05/16 Peggy Ybarra DPM [address] [place] [address] Consulting Physician Foot and Ankle Surg 11/22/24 documented as of this encounter
--- OUTSIDE RECORDS SUMMARY | 2025-01-08 09:53 | XMS_ITS | Encounter Summary ---
Author Organization [facility] Facility Care Team Providers Care Customer Operations Manager Name Role Phone Caden Hwang MD Primary Care Provider [phone] Miscellaneous, Not In File Primary Care Provider Unavailable Brittney Arredondo MD Primary Care Provider + [phone] Miscellaneous, Not In File Unavailable Unava ilable Caden Hwang MD Unavailable [phone] Unknown, Notinfile Primary Care Provider Unavail able Judith Lo MD Primary Care Provider [phone] Kaleb Atkinson MD Primary Care Provider [phone] Kristyn Champagne MD Primary Care Provider [phone] Peggy Ybarra DPM Unavailable [phone] Encounter Details Date Type Department Care Team (Latest Contact Info) Description 08/02/2014 Orders Only [facility] CLINCONV ProviderMono MD [address] [place] [address] Social History Tobacco Use Types Packs/Day Years Used Date Smoking Tobacco: Never Assessed Comments Unknown Sex and Gender Information Value Date Recorded Sex Assigned at Not on file 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 Gender Identity Not on file Sexual Orientation [...] on filedocumented in this encounter Care Teams Customer Operations Manager Relationship Specialty Start Date End Date Caden Hwang MD [address] [facility] [address] [place] [address] PCP - General 01/31/14 09/18/16 Miscellaneous, Not In File PCP - General 09/19/16 10/04/16 Brittney Arredondo MD [address] [place] [address] [address] [place] [address] PCP - General 10/05/16 01/30/17 Unknown, Notinfile PCP - General 01/31/17 09/14/17 Judith Lo MD PCP - General 09/15/17 11/30/20 Kaleb Atkinson MD PCP - General Family Medicine 12/01/20 11/12/24 Kristyn Champagne MD PCP - General Family Medicine 11/13/24 Miscellaneous, Not In File 10/05/16 Caden Hwang MD [address] [facility] [address] [place] [address] 09/19/16 10/04/16 Peggy Ybarra, TINO [address] [place] [address] Consulting Physician Foot and Ankle Surg 11/22/24 documented as of this encounter
--- OUTSIDE RECORDS SUMMARY | 2025-01-08 09:53 | XMS_ITS | Encounter Summary ---
Author Organization [facility] Facility Care Team Providers Care Social Sciences Department Chair Name Role Phone Brittney Arredondo MD Primary Care Provider [phone] Miscellaneous, Not In File Unavailable Unava ilable Unknown, Notinfile Primary Care Provider Unavail able Judith Lo MD Primary Care Provider [phone] Kaleb Atkinson MD Primary Care Provider [phone] Kristyn Champagne MD Primary Care Provider [phone] Peggy Ybarra DPM Unavailable [phone] Encounter Details Date Type Department Care Team (Latest Contact Info) Description 10/24/2016 Orders Only [facility] CLINCONV ProviderMono MD [address] [place] [address] Social History Tobacco Use Types Packs/Day Years Used Date Smoking Tobacco: Every Day Alcohol Use Standard Drinks/Week Comments No 0 (1 standard drink = 0.6 oz pur e alcohol) Comments Unknown Sex and Gender Information Value Date Recorded Sex Assigned at Not on file 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 Gender Identity Not on file Sexual Orientation [...] on filedocumented in this encounter Care Teams Social Sciences Department Chair Relationship Specialty Start Date End Date Brittney Arredondo MD [address] [place] [address] PCP - General 10/05/16 01/30/17 Unknown, Notinfile PCP - General 01/31/17 09/14/17 Judith Lo MD PCP - General 09/15/17 11/30/20 Kaleb Atkinson MD PCP - General Family Medicine 12/01/20 11/12/24 Kristyn Champagne MD PCP - General Family Medicine 11/13/24 Miscellaneous, Not In File 10/05/16 Peggy Ybarra DPM [address] [place] [address] Consulting Physician Foot and Ankle Surg 11/22/24 documented as of this encounter
--- OUTSIDE RECORDS SUMMARY | 2025-01-08 09:53 | XMS_ITS | Clinical Summary ---
Author Organization [facility] Address [address] [place] [address] Care Team Providers Care Floriculture Teacher Name Role Phone Sanchez Bullard MD Unavailable [phone] Jesús Gonzalez DO Primary Care Provider + Napoleon Garcia MD Unavailable Allergies Active Allergy Reactions Criticality Noted Date Comments Amitriptyline Seizure 09/12/2017 Cyclobenzaprine Seizure 05/29/2013 Pregabalin Dizziness,Headache 09/12/2017 Sibutramine Rash,Unknown Medium 07/11/2012 Tape Contact Dermatitis,Rash Medium 11/24/2016 BAND-AID brand comfort sheer Carbamazepine Rash Low 09/12/2017 Trazodone Other (see comment) 09/12/2017 Urinary incontinence Acetaminophen Other (see comment) 09/12/2017 Informed not to take by pcp Medications vitamin D2, ergocalciferol, 47916 UNITS capsule TAKE 1 CAP BY MOUTH ONCE WEEKLY WITH A LARGE MEAL 1 9 Active zolpidem (AMBIEN) 10 MG tabletIndications:P rimary insomnia Take 0.5-1 tablet nightly prn insomnia 30 tablet 9 Active levothyroxine 25 MCG tablet Take 25 mcg by mouth daily. 0 9 Active escitalopram (LEXAPRO) 10 MG tabletIndications:D epression with anxiety Take 1/2 tab daily for 1 week, and then take 1 tab daily 30 tablet 2 9 Active ondansetron (ZOFRAN ODT) 8 MG disintegrating tabletIndications:H istory of sleeve gastrectomy Take 1 tablet (8 mg total) by mouth every 8 (eight) hours as needed for Nausea. 20 tablet 0 Active Active Problems Problem Noted Date Diagnosed Date GERD (gastroesophageal reflux disease) 9 History of sleeve gastrectomy 02/06/2019 DDD (degenerative disc disease), lumbar 02/07/20 19 Annular tear of lumbar disc 10/03/2017 Bilateral knee pain 09/01/2017 Pain in left hip 09/01/2017 Chronic pain 12/18/2016 Overview (02/06/2019): Overview: neck, back, bilateral knees, bilateral hips Hypertension 12/18/2016 Complication of foreign body accidentally left in body following procedure 12/17/2016 Insomnia 12/05/2016 Morbid obesity 12/05/2016 Neuropathy 12/05/2016 Sinusitis 10/30/2014 Transient neurologic deficit 08/07/2014 Other muscle spasm 01/10/2014 Nausea 02/14/2013 Depression 08/16/2012 Anxiety 07/11/2012 Arthritis 07/11/2012 Headache 07/11/2012 Seizure ([facility]) 07/11/2012 Thyroid disease 07/11/2012 Syncope Resolved Problems Problem Noted Date Diagnosed Date Resolved Date Atypical migraine 08/07/2014 02/06/2019 Immunizations Immunization Administration Dates Next Due Fluarix (IIV4) 09/12/2017 Influenza (Generic) 03/12/2013 Influenza Adult (Generic) 09/12/2017 Family History Medical History Relation Comments A-FIb Father Hypertension Father Heart Disease Mother swelling in legs Mother Relation Status Comments Father Mother Social History Tobacco Use Types Packs/Day Years Used Date Smoking Tobacco: Every Day Cigarettes 0.5 20 Smokeless Tobacco: Never Tobacco Cessation:Ready to Q uit: No Alcohol Use Standard Drinks/Week Comments No 0 (1 standard drink = 0.6 oz pur e alcohol) PHQ-2 Answer Date Recorded PHQ-2 Score 6 05/25/2019 Comments No Sex and Gender Information Value Date Recorded Sex Assigned at Not on file Legal Sex Female 4:31 PM CDT Gender Identity Not on file Sexual Orientation Not on file Occupation Industry Job Start Date Job End Date Not on file Not on file Not on file Not on file Last Filed Vital Signs Vital Sign Reading Time Taken Comments Blood Pressure 122/76 02/13/2019 10:20 AM CDT Pulse 93 02/13/2019 10:20 AM CDT Temperature 36.8 C (98.2 F) 02/13/2019 10:20 AM CDT Respiratory Rate 16 02/13/2019 10:20 AM CDT Oxygen Saturation 97% 02/13/2019 10:20 AM CDT Inhaled Oxygen Concentration - - Weight 85 kg (187 lb 8 oz) 02/13/2019 10:20 AM C DT Height 170.2 cm (5' 7) 02/13/2019 10:20 AM CDT Body Mass Index 29.37 02/13/2019 10:20 AM CDT Plan of Treatment Health Maintenance Due Date Last Done Comments Annual Physical 1968 Hepatitis C 08/29/1983 DTaP, Tdap and Td Vaccines ( 1 - Tdap) 1984 Pneumococcal Vaccine: 50+ Years (1 of 2 - PCV) 1984 Zoster Vaccines (1 of 2) 08/29/2015 Mammogram Screening 08/27/2016 08/27/2014 COVID-19 Vaccine ( - 2023-2 5 season) 2024 Colorectal Cancer Screening Colonoscopy (10 Years) 06/19/2025 06/19/2015, Meningococcal B Vaccine Aged Out No l onger eligible based on patient's age to complete this topic Meningococcal Vaccine Aged Out No chasity holli eligible based on patient's age to complete this topic RSV Immunizations Under 20 Months Aged Out No longer eligible b ased on patient's age to complete this topic Procedures Procedure Name Priority Date/Time Associated Diagnosis Comments COLONOSCOPY Routine 06/19/2015 12:00 AM ELECTRONICS ENGINEERING TECHNICIAN MG SCREENING MARY ANN DIGI Routine 08/27/2014 12:00 AM CDT from Last 3 Months or Most Recently Relevant to Health Maintenance Results * Colonoscopy (06/19/2015 12:00 AM ELECTRONICS ENGINEERING TECHNICIAN) 06/19/2015 06/19/2015 Narrative [facility] TO EPIC CONVERSION - 06/19/2015 12:00 AM ELECTRONICS ENGINEERING TECHNICIAN Documented hx of procedure Procedure Note , Generic Conversion, - 04/22/2018 Documented hx of procedure us Generic Conversion Md [facility] PROCEDURE ORDERABLES Final Result [facility] TO EPIC CONVERSION * MG SCREENING MARY ANN DIGI (08/27/2014 12:00 AM CDT) Anatomical Region Laterality Modality Breast Bilateral Mammography 08/27/2014 08/27/2014 Narrative 08/17/2017 4:40 PM ELECTRONICS ENGINEERING TECHNICIAN negative Procedure Note Jesus Chapman ConversionMD - 04/11/2018 negative Judith Lo DO MAMMO Final Result from Last 3 Months or Most Recently Relevant to Health Maintenance [place] [address] [place] [address] Advance Directives * Full Code (Latest Code Status on File) Date Activated Date Inactivated Comments 09/12/2017 9:07 PM 09/13/2017 8:30 PM Care Teams Floriculture Teacher Relationship Specialty Start Date End Date Jesús Gonzalez DO [address] [place] [address] PCP - General FAMILY PRACTICE 01/09/19 Sanchez Bullard MD [facility] [address] [place] [address] [employer] CARDIOVASCULAR DISEASE 10/09/17 Napoleon Garcia MD [address] [place] [address] NEUROLOGY 02/08/19
--- OUTSIDE RECORDS SUMMARY | 2025-01-08 09:54 | XMS_ITS | Encounter Summary ---
Author Organization [facility] Facility Care Team Providers Care Building Coordinator Name Role Phone Caden Hwang MD Primary Care Provider [phone] Miscellaneous, Not In File Primary Care Provider Unavailable Brittney Arredondo MD Primary Care Provider + [phone] Miscellaneous, Not In File Unavailable Unava ilable Caden Hwang MD Unavailable [phone] Unknown, Notinfile Primary Care Provider Unavail able Judith Lo MD Primary Care Provider [phone] Kaleb Atkinson MD Primary Care Provider [phone] Kristyn Champagne MD Primary Care Provider [phone] Peggy Ybarra DPM Unavailable [phone] Encounter Details Date Type Department Care Team (Latest Contact Info) Description 12/31/2015 Orders Only [facility] CLINCONV ProviderMono MD [address] [place] [address] Social History Tobacco Use Types Packs/Day Years Used Date Smoking Tobacco: Never Assessed Comments Unknown Sex and Gender Information Value Date Recorded Sex Assigned at Not on file Legal Sex Female 8:30 PM GYNECOLOGIST Gender Identity Not on file Sexual Orientation [...] on filedocumented in this encounter Care Teams Building Coordinator Relationship Specialty Start Date End Date Caden Hwang MD [address] [facility] [address] [place], [place] [id number] PCP - General 01/31/14 09/18/16 Miscellaneous, Not In File PCP - General 09/19/16 10/04/16 Brittney Arredondo MD [address] [place] [address] PCP - General 10/05/16 01/30/17 Unknown, Notinfile PCP - General 01/31/17 09/14/17 Judith Lo MD PCP - General 09/15/17 11/30/20 Kaleb Atkinson MD PCP - General Family Medicine 12/01/20 11/12/24 Kristyn Champagne MD PCP - General Family Medicine 11/13/24 Miscellaneous, Not In File 10/05/16 Caden Hwang MD [address] [address] 09/19/16 10/04/16 Peggy Ybarra DPM [address] [place] [address] Consulting Physician Foot and Ankle Surg 11/22/24 documented as of this encounter
--- OUTSIDE RECORDS SUMMARY | 2025-01-08 09:54 | XMS_ITS | Continuity of Care Document ---
Author Organization [facility] Address [address] [place] [address] Phone Care Team Providers Care Marking Stitcher Name Role Phone Regan OD, Sahil Unavailable Unavailable Advance Directives Directive Yes / No Effective Date File Name No Information Encounters Encounter Description Practice Location Reason(s) For Visit Diagnoses Date Provider Providers Copied on Encounter [facility], [address], [place], [place], [id number], [place] tel:[phone] [facility] No Information Aug-0 4-200 0 Regan OD Sahil. [address] , [address], [place], [address], [place]. tel:[phone] Family History Family Member Type Diagnosis Age At Onset No Information Payers Payer name Insurance type Covered libertarian ID Authoriza tion(s) No Information Social History [...]
--- OUTSIDE RECORDS SUMMARY | 2025-01-08 09:54 | XMS_ITS | Clinical Summary ---
Author Organization [facility] Address [address] [place] [address] Care Team Providers Care Police Chief Name Role Phone Miscellaneous, Not In File Unavailable Unava ilable Kristyn Champagne MD Primary Care Provider [phone] Peggy Ybarra DPM Unavailable [phone] Allergies Active Allergy Reactions Criticality Noted Date [...] 1 tablet (200 mcg total) by mouth early childhood teacher assistant before breakfast Active losartan (COZAAR) 100 mg [...] (2,000 Units total) by mouth daily Active Active Problems Problem Noted Date Diagnosed Date Hallux rigidus of right foot 10/29/2024 Acquired hammer toe of right foot 10/29/2024 Metatarsalgia of right foot 10/29/2024 Encounter for screening colonoscopy 12/25/2020 Assessment & Plan (12/25/2020 11:43 AM CDT): Polyp 2015. colonoscopy History of colonic polyps 12/25/2020 Overview (12/25/2020): Added automatically from request for surgery [id number] Family history of colonic polyps 12/25/2020 Overview (12/25/2020): Added automatically from request for surgery [id number] DDD (degenerative disc disease), lumbar 02/07/20 19 [...] Description 11/22/2024 12:19 PM CDT Anesthesia Event [facility] Operating Room [address] [place] [address] Aramndo Ortiz MD Alexander, Jeffrey Michael, 11/22/2024 12:00 PM CDT - 11/22/2024 2:30 PM CDT Surgery [facility] Operating Room [address] [place] [address] Peggy Ybarra, DPM CHEILECTOMY 1ST Metatarsal phalangeal joint 11/22/2024 10:29 AM CDT - 11/22/2024 4:03 PM CDT Hospital Encounter [facility] Operating Room [address] [place] [address] Peggy Ybarra, DPM Discharge Disposition: Discharge to home or self care from Last 3 Months Surgical History Surgery Date Site/Laterality Comments SC VAGINAL HYSTERECTOMY UTERUS 250 GM/< Vaginal Hysterectomy - (Added by TW Conv) KNEE SURGERY Knee Surgery - (Added by TW Conv) FOOT SURGERY Bilateral Foot Repair - (Added by TW Conv) WRIST SURGERY Right Wrist Surgery - (Added by TW Conv) SC ARTHRP KNE CONDYLE&PLATU MEDIAL&LAT COMPARTMENTS Total Knee [...] on file Legal Sex Female 8:30 PM CARDING UTILITY TENDER Gender Identity Not on file Sexual Orientation [...] Vaccine (1 of 2) 08/29/2015 Influenza Vaccine (#1) 2025 1, 03/24/2020, 09/12/2017, Additional history exists Colon Cancer Screening-Colonoscopy 01/28/2031 01/28/2021 Colon Cancer Screening-CT Colonography Discontinued 01/28/2021 Colon Cancer Screening-DNA Stool Discontinued 01/29/20 Colon Cancer Screening-FIT Discontinued 01/28/2021 Colon Cancer Screening-Sigmoidoscopy Discontinued 01/28/2021 Medical Devices Implanted Type Area [employer]ians Top Helper Device Identifier Shelf Expiration Date Model / Serial / Lot Rt Knee Replacement Right: Knee [employer] Augusto 1.1mm 152mm Trocar Point 2 End Style 1 Wire Fixation [id number] - Sn/A - [id number] Implanted:Qty: 1 on 11/22/2024 by Peggy Ybarra DPM at [facility] Right: Second Toe [employer] 09/08/2032 [id number] / N/A / [id number] [employer] Augusto 1.1mm 152mm Trocar Point 2 End Style 1 Wire Fixation [id number] - Sn/A - [id number] Implanted:Qty: 1 on 11/22/2024 by Peggy Ybarra DPM at [facility] Right: Third Toe [employer] 09/05/2033 [id number] / N/A / [id number] Procedures Procedure Name Priority Date/Time Associated Diagnosis Comments XR FOOT RIGHT 1 VIEW IP Routine 11/22/2024 1:32 PM CDT FL FLUOROSCOPY < 1 HOUR IP Routine 11/22/2024 1:32 PM CDT SC AN ELECTIVE SUPRAGLOTTIC AIRWAY Routine 11/22/2024 12:30 [...] Caden Funk M.D. MF: ROYA Report ID: [id number] Reading Location: [id number] Procedure Note Caden Funk MD - 11/24/2024 [...] Caden Funk M.D. MF: ROYA Report ID: [id number] Reading Location: [id number] us Peggy Ybarra DPM IMG XR PROCEDURES Final Res ult * FL Fluoroscopy < 1 Hour (11/22/2024 1:32 PM CDT) Narrative [facility] - 11/22/2024 1:32 PM CDT The images from this study are not interpreted by Radiology. Please refer to the physician's procedure / OR operative note. us Peggy Ybarra DPRajesh IMG FLUOROSCOPY PROCEDURES Final Result [facility] * SC AN ELECTIVE SUPRAGLOTTIC AIRWAY (11/22/2024 12:30 PM CDT) Narrative Eren Aden CRNA - 11/22/2024 12:30 PM CDT Eren Aden CRNA 11/22/2024 12:31 PM Airway Patient location: OR Urgency: elective Date/time: 11/22/2024 12:23 PM Indications for airway management: anesthesia Difficult airway: no Staff: Placed by: ALLOPATHIC DOCTOR: Eren Aden CRNA Emergent airway documentation: Risks [...] Mcdonald MD - 01/28/2021 10:42 AM CDT [facility] Patient Name: Jazlyn Waddell Procedure Date: 01/28/2021 10:42 AM Date of : 1965 Admit Type: Outpatient Age: 55 Gender: Female Attending MD: Bravo Mcdonald M.D. Room: [facility] ENDOSCOPY ROOM 2 Note Status: [...] scope was passed under direct vision. TheColonoscope [id number] was introduced through the anus and advanced [...] 10:42 AM Procedure Code(s): --- Professional --- 81715, Colonoscopy, flexible; with removal of tumor(s), polyp(s), or other lesion(s) by snare technique Diagnosis Code(s): --- Professional --- K57.30, Diverticulosis of large intestine without perforation orabscess without bleeding K63.5, Polyp of colon K64.9, Unspecified hemorrhoids Z86.010, Personal history of colonic polyps CPT copyright 2019 [employer]. All rights reserved. The codes documented in this report are preliminary and upon hospital coder reviewmay be revised to meet current compliance requirements. Recognized by the [employer] for promoting quality in endoscopy Bravo Mcdonald MD ENDOSCOPY PROCEDURES Final Re sult from Last 3 Months or Most Recently Relevant to Health Maintenance Insurance [facility] Advance Directives For more information, please contact: [phone] * Full Code (Latest Code Status on File) Date Activated Date Inactivated Comments 01/28/2021 10:26 AM 01/28/2021 5:20 PM * Full Code Date Activated Date Inactivated Comments 01/28/2021 10:26 AM 01/28/2021 10:26 AM Care Teams Police Chief Relationship Specialty Start Date End Date Kristyn Champagne MD PCP - General Family Medicine 11/13/24 Miscellaneous, Not In File 10/05/16 Peggy Ybarra, DPM [address] [place] [address] Consulting Physician Foot and Ankle Surg 11/22/24
--- OUTSIDE RECORDS SUMMARY | 2025-01-08 09:54 | XMS_ITS | Encounter Summary ---
Author Organization [facility] Care Team Providers Care Fabric Designer Name Role Phone Caden Hwang MD Primary Care Provider [phone] Miscellaneous, Not In File Primary Care Provider Unavailable Brittney Arredondo MD Primary Care Provider [phone] Miscellaneous, Not In File Unavailable Unava ilable Caden Hwang MD Unavailable [phone] Unknown, Notinfile Primary Care Provider Unavail able Judith Lo MD Primary Care Provider [phone] Kaleb Atkinson MD Primary Care Provider [phone] Kristyn Champagne MD Primary Care Provider [phone] Peggy Ybarra DPM Unavailable [phone] Encounter Details Date Type Department Care Team (Latest Contact Info) Description 01/11/2016 Orders Only [facility] CLINCONV ProviderMono MD [address] [place] [address] Social History Tobacco Use Types Packs/Day Years Used Date Smoking Tobacco: Never Assessed Comments Unknown Sex and Gender Information Value Date Recorded Sex Assigned at Not on file Legal Sex Female 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 Gender Identity Not on file Sexual Orientation [...] on filedocumented in this encounter Care Teams Fabric Designer Relationship Specialty Start Date End Date Caden Hwang MD [address] [facility] [address] [place] [address] PCP - General 01/31/14 09/18/16 Miscellaneous, Not In File PCP - General 09/19/16 10/04/16 Brittney Arredondo MD [address] [place] [address] [address] [place] [address] PCP - General 10/05/16 01/30/17 Unknown, Notinfile PCP - General 01/31/17 09/14/17 Judith Lo MD PCP - General 09/15/17 11/30/20 Kaleb Atkinson MD PCP - General Family Medicine 12/01/20 11/12/24 Kristyn Champagne MD PCP - General Family Medicine 11/13/24 Miscellaneous, Not In File 10/05/16 Caden Hwang MD [address] [address] 09/19/16 10/04/16 Peggy Ybarra DPM [address] [place] [address] Consulting Physician Foot and Ankle Surg 11/22/24 documented as of this encounter
--- OUTSIDE RECORDS SUMMARY | 2025-01-08 09:54 | XMS_ITS | Data Portability ---
Author Organization [facility] Address [address] [place] [address] Care Team Providers Care Children[facility] Nursery Assistant Name Role Phone KALEB CALLAHAN Primary Care Provider [phone] Assessment Encounter Date Assessment Date Assessment LastModified by Organization Details LastModified Time 05/19/2022 05/19/2022 Due to increased blood pressure, losartan is now increased from 50 to 100 mg daily [email or web address] Not available 05/23/2022 15:55:59 Plan of Treatment Reminders Order Date Submit Date Provider Last Modified By Organization Details Last Modified Time Details Appointments None record ed. Lab TSH, ultra- sensit nikia, serum 2021 023 [facility], [address] [place] [address], [address], 09:15:47 cultur e, urine 2021 022 [facility], [address] [place] [address], [address], 11:07:45 urinal ysis comple te, reflex cultur e 2021 022 [facility], [address] [place] [address] [place], [address], 11:07:45 TSH, ultra- sensit nikia, serum 2021 022 [facility], 2022 Zehra Kapoor, [address], [address], 08:25:21 CMP, serum or plasma 2021 022 [facility], [address] [place] [address], [place], [address], 11:07:44 TSH, ultra- sensit nikia, serum 2021 022 [facility], [address] [place] [address] 2, [place], [address], 17:10:06 ethano l, QN, GC, blood 2021 022 [facility], [address] [place] [address] 2, [place], [address], 17:10:05 CMP, serum or plasma 2021 022 [facility], [address] [place] [address] 2, [place], [address], 17:10:05 TSH, ultra- sensit nikia, serum 2020 021 [facility], [address], [address], [place], [address], 11:09:03 Referral endocr inolog y referr al 2021 NARAYAN Omer, [address], [place], [address], 3 14:59:26 orthop edic surgeo n referr al 2021 NARAYAN Dao MD, [address] [facility] , [facility] [address], [place], [address], 13:30:48 Procedures None record ed. Surgeries None record ed. Imaging PFT, comple te [address] [facility], [address], [place], [address], 3 15:28:54 MAMMO, screen ing, bilate ral 2021 023 [facility], [address], [place], [address], 3 11:27:09 XR, chest, 2 view 2021 022 [facility] Padilla (Radiology), [address] [facility] [place], [address], 2 13:55:28 XR, hand, 3 or more view [address] [facility], [address], [place], [address], 2 09:02:44 Medication Orders clonid ine HCl 0.1 mg tablet [email or web address] [place] [address] [id number], [address] [place], [id number], 3 16:38:44 hydroc hlorot hiazid e 12.5 mg capsul e 2022 023 [email or web address] #48890, [address] [place], [place], [id number], 3 13:16:45 losart an 100 mg tablet 2021 022 [facility] #75633, [address] [place], [place], [id number], 2 14:59:42 levoth yroxin e 100 mcg tablet 2021 022 [facility] #06897, [address] [place], [id number], 2 16:57:23 Vesica re 5 mg tablet [address] [facility] #11453, [address] [place], [id number], 2 16:00:28 tramad ol 50 mg tablet [address] [facility] #88202, [address] [place], [place], [id number], 16:41:53 chlord iazepo xide 10 mg capsul e [address] [facility] #29519, [address] [place], [place], [id number], 16:56:49 levoth yroxin e 50 mcg tablet 2020 021 [email or web address] [facility] #36275, [address] [place], [place], [id number], 2 12:07:43 escita lopram 10 mg tablet 2020 [email or web address] [facility] #61631, [address] [place], [place], [id number], 3 15:12:26 Patient TargetsNo targets recorded. Patient Instructions Encounter Date Encounter Id Patient Instructions Last Modified By Organization Details Last Modified Time 06/16/2021 [id number] hypothyroidism: care instructions [email or web address] Not available 06/16/2021 17:29:27 10/13/2021 [id number] Stress Incontinence: Care Instructions [email or web address] Not available 10/13/2021 16:50:20 hypothyroidism: care instructions [email or web address] Not available 10/13/2021 16:44:13 02/16/2022 [id number] mammogram: about this test Not available 02/16/2022 16:41:26 painful urinatio n (dysuria): care instructions [email or web address] Not available 02/16/2022 16:40:47 hypothyroidism: care instructions [email or web address] Not available 02/16/2022 16:37:03 hypokalemia: car e instructions [email or web address] Not available 02/16/2022 16:40:47 05/19/2022 [id number] mammogram: about this test [email or web address] Not available 05/19/2022 15:05:09 chronic cough: care instructions [email or web address] Not available 05/19/2022 14:49:29 learning about high blood pressure [email or web address] Not available 05/19/2022 14:58:15 hypothyroidism: care instructions [email or web address] Not available 05/19/2022 14:52:35 01/05/2023 [id number] A healthy lifestyle: care instructions [email or web address] Not available 01/05/2023 16:38:38 Quitting Tobacco : Care Instructions [email or web address] Not available 01/05/2023 16:38:38 chronic cough: care instructions [email or web address] Not available 01/05/2023 16:08:35 learning about high blood pressure [email or web address] Not available 01/05/2023 16:38:38 hypothyroidism: care instructions Not available 01/09/2023 16:54:52 Reason for Referral Endocrinology Referral for H ypothyroidism Referring Physician: Kaleb Callahan [facility] Medicine, Encounter Date: 02/16/2022 Orthopedic Surgeon Referral for Pain of joint of pelvis and/or upper leg Referring Physician: Kaleb Callahan [facility], Encounter Date: 02/16/2022 Results Created Date Observation Date Name Description Value Unit Range Abnormal Flag Note LastModifiedBy Organization Detail LastModifiedTime 06/25/19 22 06/26/2021 TSH RFX ON ABNOR MAL TO FREE T4 TSH 66.800 uIU/m L 0.450- 4.500 above high normal Not Available [facility] ([facility]) [address] [facility] [address], [place], [address], 06/26/2021 11:09:03 06/25/19 22 06/26/2021 TSH RFX ON ABNOR MAL TO FREE T4 T4,free (direct) 0.62 NG/dL 0.82-1 .77 below low normal Not Available [facility] ([facility]) [address] [facility] [address], [place], [address], 06/26/2021 11:09:03 10/14/19 22 10/14/2021 COMP. METAB OLIC PANEL (14) glucose 161 mg/dL 65-99 above high normal Not Available [facility] ([facility]) [address] [facility] [address], [place], [address], 10/14/2021 17:10:04 10/14/19 22 10/14/2021 COMP. METAB OLIC PANEL (14) BUN 17 mg/dL 6-24 Not Available [facility] ([facility]) [address] [place], [address], 10/14/2021 17:10:04 10/14/19 22 10/14/2021 COMP. METAB OLIC PANEL (14) creatinine 0.84 mg/dL 0.57-1 .00 Not Available [facility] ([facility]) [address] [place], [address], 10/14/2021 17:10:04 10/14/19 22 10/14/2021 COMP. METAB OLIC PANEL (14) eGFR 82 mL/mi n/1.7 3 >59 Not Available [facility] ([facility]) [address] [place], [address], 10/14/2021 17:10:04 10/14/19 22 10/14/2021 COMP. METAB OLIC PANEL (14) BUN/creatini ne ratio 08 03- Not Available [facility] ([facility]) [address] [place], [address], 10/14/2021 17:10:04 10/14/19 22 10/14/2021 COMP. METAB OLIC PANEL (14) sodium 139 mmol/ L 134-14 4 Not Available [facility] ([facility]) [address] [facility] [place], [address], 10/14/2021 17:10:04 10/14/19 22 10/14/2021 COMP. METAB OLIC PANEL (14) potassium 4.5 mmol/ L 3.5-5. 2 Not Available [facility] ([facility]) [address] [facility] [place], [address], 10/14/2021 17:10:04 10/14/19 22 10/14/2021 COMP. METAB OLIC PANEL (14) chloride 102 mmol/ L 96-106 Not Available [facility] ([facility]) [address] [facility] [place], [address], 10/14/2021 17:10:04 10/14/19 22 10/14/2021 COMP. METAB OLIC PANEL (14) carbon dioxide, total 20 mmol/ L 20-29 Not Available [facility] ([facility]) [address] [facility] [place], [address], 10/14/2021 17:10:04 10/14/19 22 10/14/2021 COMP. METAB OLIC PANEL (14) calcium 10.3 mg/dL 8.7-10 .2 above high normal Not Available [facility] ([facility]) [address] [facility] [place], [address], 10/14/2021 17:10:04 10/14/19 22 10/14/2021 COMP. METAB OLIC PANEL (14) protein, total 7.4 g/dL 6.0-8. 5 Not Available [facility] ([facility]) [address] [facility] [place], [address], 10/14/2021 17:10:04 10/14/19 22 10/14/2021 COMP. METAB OLIC PANEL (14) albumin 5.0 g/dL 3.8-4. 9 above high normal Not Available [facility] ([facility]) [address] [facility] [place], [address], 10/14/2021 17:10:04 10/14/19 22 10/14/2021 COMP. METAB OLIC PANEL (14) globulin, total 2.4 g/dL 1.5-4. 5 Not Available [facility] ([facility]) [address] [facility] [place], [address], 10/14/2021 17:10:04 10/14/19 22 10/14/2021 COMP. METAB OLIC PANEL (14) A/G ratio 2.1 1.2-2. 2 Not Available [facility] ([facility]) [address] [facility] [place], [address], 10/14/2021 17:10:04 10/14/19 22 10/14/2021 COMP. METAB OLIC PANEL (14) bilirubin, total 0.5 mg/dL 0.0-1. 2 Not Available [facility] ([facility]) [address] [facility] [place], [address], 10/14/2021 17:10:04 10/14/19 22 10/14/2021 COMP. METAB OLIC PANEL (14) alkaline phosphatase 99 IU/L 44-121 Not Available [facility] ([facility]) [address] [facility] [place], [address], 10/14/2021 17:10:04 10/14/19 22 10/14/2021 COMP. METAB OLIC PANEL (14) AST (SGOT) 45 IU/L 0-40 above high normal Not Available [facility] ([facility]) [address] [facility] [place], [address], 10/14/2021 17:10:04 10/14/19 22 10/14/2021 COMP. METAB OLIC PANEL (14) ALT (SGPT) 35 IU/L 0-32 above high normal Not Available [facility] ([facility]) [address] [place], [address], 10/14/2021 17:10:04 10/14/19 22 10/14/2021 EDE OL, BLOOD ethanol <.010 % cutoff =0.010 This test was maria esther mata and its perfo rmanc e drew cteri stics deter mined by [facility]. It has not been clear ed or appro queta by the Food and Drug Admin istra tion. Not Available [facility] ([facility]) [address] [place], [address], 10/14/2021 17:10:05 10/14/19 22 10/14/2021 TSH RFX ON ABNOR MAL TO FREE T4 TSH 23.100 uIU/m L 0.450- 4.500 above high normal Not Available [facility] ([facility]) [address] [place], [address], 10/14/2021 17:10:06 10/14/19 22 10/14/2021 TSH RFX ON ABNOR MAL TO FREE T4 T4,free (direct) 0.86 NG/dL 0.82-1 .77 Not Available [facility] ([facility]) [address] [place], [address], 10/14/2021 17:10:06 02/17/20 22 02/17/2022 COMP. METAB OLIC PANEL (14) glucose 88 mg/dL 65-99 Not Available [facility] ([facility]) [address] [place], [address], 02/20/2022 11:07:44 02/17/20 22 02/17/2022 COMP. METAB OLIC PANEL (14) BUN 13 mg/dL 6-24 Not Available [facility] ([facility]) [address] [place], [address], 02/20/2022 11:07:44 02/17/20 22 02/17/2022 COMP. METAB OLIC PANEL (14) creatinine 0.98 mg/dL 0.57-1 .00 Not Available [facility] ([facility]) [address] [facility] [place], [address], 02/20/2022 11:07:44 02/17/20 22 02/17/2022 COMP. METAB OLIC PANEL (14) eGFR 68 mL/mi n/1.7 3 >59 Not Available [facility] ([facility]) [address] [facility] [place], [address], 02/20/2022 11:07:44 02/17/20 22 02/17/2022 COMP. METAB OLIC PANEL (14) BUN/creatini ne ratio 13 9-23 Not Available [facility] ([facility]) [address] [facility] [place], [address], 02/20/2022 11:07:44 02/17/20 22 02/17/2022 COMP. METAB OLIC PANEL (14) sodium 141 mmol/ L 134-14 4 Not Available [facility] ([facility]) [address] [facility] [place], [address], 02/20/2022 11:07:44 02/17/20 22 02/17/2022 COMP. METAB OLIC PANEL (14) potassium 4.2 mmol/ L 3.5-5. 2 Not Available [facility] ([facility]) [address] [facility] [place], [address], 02/20/2022 11:07:44 02/17/20 22 02/17/2022 COMP. METAB OLIC PANEL (14) chloride 99 mmol/ L 96-106 Not Available [facility] ([facility]) [address] [place], [address], 02/20/2022 11:07:44 02/17/20 22 02/17/2022 COMP. METAB OLIC PANEL (14) carbon dioxide, total 25 mmol/ L 20-29 Not Available [facility] ([facility]) [address] [facility], [place], [address], 02/20/2022 11:07:44 02/17/20 22 02/17/2022 COMP. METAB OLIC PANEL (14) calcium 10.3 mg/dL 8.7-10 .2 above high normal Not Available [facility] ([facility]) [address] [facility] [place], [address], 02/20/2022 11:07:44 02/17/20 22 02/17/2022 COMP. METAB OLIC PANEL (14) protein, total 7.7 g/dL 6.0-8. 5 Not Available [facility] ([facility]) [address] [facility] [place], [address], 02/20/2022 11:07:44 02/17/20 22 02/17/2022 COMP. METAB OLIC PANEL (14) albumin 5.1 g/dL 3.8-4. 9 above high normal Not Available [facility] ([facility]) [address] [facility] [place], [address], 02/20/2022 11:07:44 02/17/20 22 02/17/2022 COMP. METAB OLIC PANEL (14) globulin, total 2.6 g/dL 1.5-4. 5 Not Available [facility] ([facility]) [address] [facility] [place], [address], 02/20/2022 11:07:44 02/17/20 22 02/17/2022 COMP. METAB OLIC PANEL (14) A/G ratio 2.0 1.2-2. 2 Not Available [facility] ([facility]) [address] [facility] [place], [address], 02/20/2022 11:07:44 02/17/20 22 02/17/2022 COMP. METAB OLIC PANEL (14) bilirubin, total 0.8 mg/dL 0.0-1. 2 Not Available [facility] ([facility]) [address] [facility], [place], [address], 02/20/2022 11:07:44 02/17/20 22 02/17/2022 COMP. METAB OLIC PANEL (14) alkaline phosphatase 75 IU/L 44-121 Not Available [facility] ([facility]) [address] [place], [address], 02/20/2022 11:07:44 02/17/20 22 02/17/2022 COMP. METAB OLIC PANEL (14) AST (SGOT) 66 IU/L 0-40 above high normal Not Available [facility] ([facility]) [address] [place], [address], 02/20/2022 11:07:44 02/17/20 22 02/17/2022 COMP. METAB OLIC PANEL (14) ALT (SGPT) 47 IU/L 0-32 above high normal Not Available [facility] ([facility]) [address], [place], [address], 02/20/2022 11:07:44 02/17/20 22 02/17/2022 UA/M W/RFL X CULTU RE, ROUTI NE specific gravity 1.029 1.005- 1.030 Not Available [facility] ([facility]) [address] [place], [address], 02/20/2022 11:07:45 02/17/20 22 02/17/2022 UA/M W/RFL X CULTU RE, ROUTI NE pH 5.5 5.0-7. 5 Not Available [facility] ([facility]) [address] [place], [address], 02/20/2022 11:07:45 02/17/20 22 02/17/2022 UA/M W/RFL X CULTU RE, ROUTI NE urine-color Yellow yellow Not Available [facility] ([facility]) [address] [facility] [place], [address], 02/20/2022 11:07:45 02/17/20 22 02/17/2022 UA/M W/RFL X CULTBHARTI GREEN appearance Turbid clear abnormal Not Available [facility] ([facility]) [address] [facility], [place], [address], 02/20/2022 11:07:45 02/17/20 22 02/17/2022 UA/M W/RFL X CULTDebra REBHARTI NE WBC esterase 3+ negati ve abnormal Not Available [facility] ([facility]) [address] [place], [address], 02/20/2022 11:07:45 02/17/20 22 02/17/2022 UA/M W/RFL X CULTDebra REBHARTI protein 2+ negati ve/tra ce abnormal Not Available [facility] ([facility]) [address] [place], [address], 02/20/2022 11:07:45 02/17/20 22 02/17/2022 UA/M W/RFL X CULTBHARTI GREEN glucose Negati ve negati ve Not Available [facility] ([facility]) [address] [place], [address], 02/20/2022 11:07:45 02/17/20 22 02/17/2022 UA/M W/RFL X CULTBHARTI GREEN ketones Trace negati ve abnormal Not Available [facility] ([facility]) [address] [place], [address], 02/20/2022 11:07:45 02/17/20 22 02/17/2022 UA/M W/RFL X CULTDebra REBHARTI occult blood 3+ negati ve abnormal Not Available [facility] ([facility]) [address] [place], [address], 02/20/2022 11:07:45 02/17/20 22 02/17/2022 UA/M W/RFL X CULTU RE, ROUTI NE bilirubin Negati ve negati ve Not Available [facility] ([facility]) [address] [place], [address], 02/20/2022 11:07:45 02/17/20 22 02/17/2022 UA/M W/RFL X CULTU RE, ROUTI NE urobilinogen ,semi-qn 1.0 mg/dL 0.2-1. 0 Not Available [facility] ([facility]) [address] [place], [address], 02/20/2022 11:07:45 02/17/20 22 02/17/2022 UA/M W/RFL X CULTU RE, ROUTI NE nitrite, urine Negati ve negati ve Not Available [facility] ([facility]) [address] [place], [address], 02/20/2022 11:07:45 02/17/20 22 02/17/2022 UA/M W/RFL X CULTU RE, ROUTI NE microscopic examination See below: Micro scopi c was indic ated and was perfo rmed. Not Available [facility] ([facility]) [address] [place], [address], 02/20/2022 11:07:45 02/17/20 22 02/17/2022 UA/M W/RFL X CULTU RE, ROUTI NE WBC >30 /hpf 0 - 5 abnormal Not Available [facility] ([facility]) [address] [place], [address], 02/20/2022 11:07:45 02/17/20 22 02/17/2022 UA/M W/RFL X CULTU RE, ROUTI NE RBC >30 /hpf 0 - 2 abnormal Not Available [facility] ([facility]) [address] [place], [address], 02/20/2022 11:07:45 02/17/20 22 02/17/2022 UA/M W/RFL X CULTU RE, ROUTI NE epithelial cells (non renal) 0-10 /hpf 0 - 10 Not Available [facility] ([facility]) [address] [facility], [place], [address], 02/20/2022 11:07:45 02/17/20 22 02/17/2022 UA/M W/RFL X CULTU RE, ROUTI NE epithelial cells (renal) MANAGER ANIMAL Not Available [facility] ([facility]) [address] [facility], [place], [address], 02/20/2022 11:07:45 02/17/20 22 02/17/2022 UA/M W/RFL X CULTU RE, ROUTI NE casts None seen /lpf none seen Not Available [facility] ([facility]) [address] [facility], [place], [address], 02/20/2022 11:07:45 02/17/20 22 02/17/2022 UA/M W/RFL X CULTU RE, ROUTI NE cast type MANAGER ANIMAL Not Available [facility] ([facility]) [address] [facility], [place], [address], 02/20/2022 11:07:45 02/17/20 22 02/17/2022 UA/M W/RFL X CULTU RE, ROUTI NE crystals MANAGER ANIMAL Not Available [facility] ([facility]) [address] [place], [address], 02/20/2022 11:07:45 02/17/20 22 02/17/2022 UA/M W/RFL X CULTU RE, ROUTI NE crystal type MANAGER ANIMAL Not Available [facility] ([facility]) [address] [place], [address], 02/20/2022 11:07:45 02/17/20 22 02/17/2022 UA/M W/RFL X CULTU RE, ROUTI NE mucus threads MANAGER ANIMAL Not Available [facility] ([facility]) [address] [facility], [place], [address], 02/20/2022 11:07:45 02/17/20 22 02/17/2022 UA/M W/RFL X CULTU RE ROUTAure NE bacteria Few none seen/f ew Not Available [facility] ([facility]) [address] [facility], [place], [address], 02/20/2022 11:07:45 02/17/20 22 02/17/2022 UA/M W/RFL X CULTU REBHARTI NE yeast MANAGER ANIMAL Not Available [facility] ([facility]) [address] [facility], [place], [address], 02/20/2022 11:07:45 02/17/20 22 02/17/2022 UA/M W/RFL X CULTU REBHARTI NE trichomonas MANAGER ANIMAL Not Available [facility] ([facility]) [address] [facility], [place], [address], 02/20/2022 11:07:45 02/17/20 22 02/17/2022 UA/M W/RFL X CULTU REBHARTI NE comment MANAGER ANIMAL Not Available [facility] ([facility]) [address] [facility], [place], [address], 02/20/2022 11:07:45 02/17/20 22 02/17/2022 UA/M W/RFL X CULTU REBHARTI NE microscopic examination MANAGER ANIMAL Not Available [facility] ([facility]) [address] [facility], [place], [address], 02/20/2022 11:07:45 02/17/20 22 02/17/2022 UA/M W/RFL X CULTU REBHARTI NE urinalysis reflex Commen t This speci men has refle xed to a Urine Cultu re. Not Available [facility] ([facility]) [address] [place], [address], 02/20/2022 11:07:45 02/17/20 22 02/20/2022 URINE CULTU RE, ROUTI NE urine culture, routine Final report abnormal Not Available [facility] ([facility]) [address] [facility], [place], [address], 02/20/2022 11:07:45 02/17/20 22 02/20/2022 URINE CULTU [...] ng units per mL Not Available [facility] ([facility]) [address] [facility], [place], [address], 02/20/2022 11:07:45 02/17/20 22 02/20/2022 URINE CULTU [...] ne S Tobra mycin S Trime thopr im/Alcala lfa S Not Available [facility] ([facility]) [address] [place], [address], 02/20/2022 11:07:45 04/19/20 22 04/20/2022 TSH RFX ON ABNOR MAL TO FREE T4 TSH 20.500 uIU/m L 0.450- 4.500 above high normal Not Available [facility] ([facility]) [address] [place], [address], 04/20/2022 08:25:21 04/19/20 22 04/20/2022 T4F T4,free (direct) 1.10 NG/dL 0.82-1 .77 Not Available [facility] ([facility]) [address] [place], [address], 04/20/2022 08:25:21 06/28/19 23 06/29/2022 TSH RFX ON ABNOR MAL TO FREE T4 TSH 16.500 uIU/m L 0.450- 4.500 above high normal Not Available [facility] ([facility]) [address] [place], [address], 06/29/2022 09:15:47 06/28/19 23 06/29/2022 T4F T4,free (direct) 0.99 NG/dL 0.82-1 .77 Not Available [facility] ([facility]) [address] [place], [address], 06/29/2022 09:15:47 06/14/20 21 05/26/2021 XR, ribs, unila teral , w/ PA chest No observ ation record ed. [email or web address] Not Available 2020 13:44:43 07/02/19 22 07/02/2021 MRI, thora cic spine , w/ contr ast No observ ation record ed. [facility] [address], [place], [address], 07/07/2021 15:06:58 10/15/19 22 10/13/2021 XR, hand, 3 or more view No observ ation record ed. [facility] [address] [facility] [address] [place], [address], 10/14/2021 17:31:59 11/19/19 22 11/17/2021 CT, angio gram, chest , w/ contr ast No observ ation record ed. [address], [address], 12/01/2021 10:57:18 12/18/19 22 12/08/2021 elect romyo gram + nerve condu ction study No observ ation record ed. [email or web address] Not Available 2021 13:26:51 01/27/20 22 01/26/2022 XR, chest No observ ation record ed. [address], [address], 01/27/2022 23:07:56 05/26/20 22 05/19/2022 XR, chest , 2 view No observ ation record ed. [email or web address] Mars[facility] Padilla (Radiology) [address] [place] [place], [address], 06/01/2022 15:10:28 02/25/20 23 02/10/2023 PFT, compl ete No observ ation record ed. [address] (Resp Services) [address] [place] [address], [id number], 02/25/2023 07:52:56 03/02/20 23 02/10/2023 PFT, compl ete No observ ation record ed. [address], [address], 03/02/2023 15:59:57 Result Notes None recorded. Problems Name Problem SNOMED Code Status Onset Date Resolution Date Notes Provider Name and Address Organization Details Recorded Time Hypokalemi a 92121703 Active 2021 Maddie Urbina MA null, [place] - [facility] 2 15:07:19 Mixed anxiety and depressive disorder 239371359 Active 2021 Maddie Urbina MA null, [place] - [facility] 2 15:07:28 Pain in lumbar spine 960291492 Active 2022 Maddie Urbina MA null, [place] - [facility] 5 09:57:23 Neuralgia 79148901 Active 2023 occipital neuralgia Maddiechristiano Urbina [place] null, [place] - [facility] 5 09:56:25 Problem Notes None recorded. Procedures Surgical History Date Name Laterality Status Provider Name and Address Organization Details Recorded Time 01/29/20 21 Colonoscopy completed Maddie Urbina MA [place] - [facility] 01/28/2021 15:07:48 06/19/19 09 Total hysterectomy completed Soni Milan APN, PAYROLL SUPERVISOR-C Attn: Accounting,[address] [place], [address], [facility] - [facility] 02/14/2024 10:52:37 laparoscopic sleeve gastrectomy completed Maddie Urbina [place] - [facility] 09/30/2020 14:13:10 total knee replacement completed Maddie Urbina [place] [facility] 09/30/2020 14:12:41 operative procedure on foot completed Maddie Urbina [place] [facility] 09/30/2020 14:13:49 Carpal tunnel surgery completed Maddie Urbina [place] [facility] 09/30/2020 14:14:15 excision of recurrent ganglion cyst of wrist completed Maddie Urbina [place] [facility] 09/30/2020 14:14:44 excision of melanoma completed Maddie Urbina [place] [facility] 09/30/2020 14:23:53 Imaging Results None recorded. Procedure Notes None recorded. Medical Equipment None Reported. Allergies Allergen ID Allergen Name Allergen Category Reaction Reaction Severity Criticality Documentation Date Start Date Code Code System Note Provider Name and Address Organization Details Recorded Time [id number] Tegretol medicatio n rash Not available Not available 09/30/2020 9 RxNoJAYNE [place], [place] - [facility] 14:05:36 [id number] amitripty line medicatio n seizure Not available Not available 09/30/2020 704 RxJAYNE Franklin, [place] - [facility] 14:05:49 Medications Name Sig [...] TAKE 1 TABLET BY MOUTH EVERY DAY Siomara t needs to schedule appointm ent for future refills 01/05 completed pt is seeing Dr Lyle hugo in [facility] and he is managing her thyroid med she states she is on 105 at present Not Available Not Available Not Available levothyro xine 150 mcg tablet TAKE [...] blood by Pulse oximetry Heart rate Systolic And Diastolic Provider Name and Address Organization Details Last Updated DateTime 2 170.18 cm 32.9 kg/m2 30083.5 3 g 16 /min 96.9 [degF] 97 % 97 % 99 /min 132/90 mm[Hg] ANGELICA Hernandez [place] - [facility] 2 16:33:05 Date Recorded Systolic And Diastolic Provider Name and Address Organization Details Last Updated DateTime 01/05/2023 150/100 mm[Hg] Kaleb Callahan MD Attn: Accounting[address] [place], [address], [facility] 01/05/2023 16:04:57 Date Recorded Body height Body mass index (BMI) Body weight Oxygen saturation Oxygen saturation in Arterial blood by Pulse oximetry Heart rate Respiratory rate Body temperature Provider Name and Address Organization Details Last Updated DateTime 3 170.18 cm 31.6 kg/m2 62547.6 6 g 97 % 97 % 115 /min 16 /min 96.9 [degF] Maddie Urbina [place] - [facility] 3 15:11:36 Date Recorded Body height Body mass index (BMI) Body weight Body temperature Heart rate Respiratory rate Systolic And Diastolic Provider Name and Address Organization Details Last Updated DateTime 2 170.18 cm 32.9 kg/m2 42196.4 g 96.9 [degF] 80 /min 16 /min 132/84 mm[Hg] Teodora Galindo [place] - [facility] 2 15:55:30 Date Recorded Systolic And Diastolic Provider Name and Address Organization Details Last Updated DateTime 05/19/2022 160/100 mm[Hg] Kaleb Callahan MD Attn: Accounting[address] [place], [address], [facility] 05/19/2022 14:58:29 Date Recorded Body height Body mass index (BMI) Body weight Oxygen saturation Oxygen saturation in Arterial blood by Pulse oximetry Heart rate Body temperature Respiratory rate Provider Name and Address Organization Details Last Updated DateTime 2 170.18 cm 31.2 kg/m2 28131.0 1 g 98 % 98 % 96 /min 98 [degF] 16 /min Laura hurst MA [facility] 2 14:38:33 Date Recorded Body height Body mass index (BMI) Body weight Heart rate Respiratory rate Body temperature Systolic And Diastolic Provider Name and Address Organization Details Last Updated DateTime 1 170.18 cm 32.1 kg/m2 93655.4 4 g 88 /min 16 /min 96.9 [degF] 124/88 mm[Hg] Maddie Urbina MA [facility] 1 17:17:28 Social History Question Answer Notes LastModified by Organizat ion Details LastModified Time Tobacco Smoking Status Current Every Day Smoker [facility] 09/30/2020 14:17:52 Do You Have [...] What Is Your Current Pack Years? 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 Former user of electronic cigarettes Information not available 09/30/2020 What is your exercise level? None Information not available 09/30/2020 Mental Status Question Answer Note LastModified by Organization D etails LastModified Time Do you feel stressed (tense, restless, nervous, or anxious, or unable to sleep at night)? [id number] Information not available 09/30/2020 Family History Relationship [...] Response Coronary Artery Disease N Other N High Blood Pressure N Atrial Fibrillation N Thyroid Problems Y Kidney or Bladder Problems N GI Problems Y Depression Y COPD N Blood Clots N Skin Problems N Eating Disorder N Anemia N Heart Attack ([place]) N Anxiety Disorder Y Diabetes N Muscle, [...] quadrivalent, PF 03/31/2021 JAYNE Weber, [place] - [facility] 03/31/2021 15:46:47 Past Encounters Encounter ID Performer Location Encounter Start Date Encounter Closed Date Diagnosis/Indication Diagnosis SNOMED-CT Code Diagnosis ICD10 Code Diagnosis Note [id number] MD Marsha Ashraf 14 IM [address] [facility] [address] 09/30/2020 13:42:53 10/01/2020 18:05:36 Hypothyroidism 52311622 E03.9 History of bariatric surgical procedure 716405523 Z98.84 done in 2017 Screening for malignant neoplasm of colon 062386686 Z12.11 Headache 03114339 R51.9 Obesity 073794714 E66.9 Screening mammography 24 301520 Z12.31 Insomnia 931326551 G47.0 0 Chronic diarrhea 1404867 09 K52.9 [id number] MD Marsha Ashraf 14 [address] [facility] [place] [address] 02/15/2021 12:05:22 02/16/2021 12:47:44 Essential hypertension 72485408 I10 History of urinary tract infection 6761819323 107 Z87.440 Hypokalemia 93257136 E87 .6 Under care of neurologist 761033697 Z76.89 to be seen by Dr. Arteaga on 02-24-2021 Urinary incontinence 165 188353 R32 [id number] MD Marsha Ashraf 14 [address] [facility] [place] [address] 03/31/2021 15:01:54 04/01/2021 15:22:20 Influenza immunization advised 917266592 Z71.89 Urinary symptoms 1626561 08 R39.9 Recurrent urinary tract infection 493809198 N39.0 Current drinker 932429 Z72.89 Screening mammography 24 961687 Z12.31 Hypothyroidism 53290666 E03.9 [id number] MD Marsha Ashraf 14 IM [address] [facility] [place] [address] 06/16/2021 17:08:09 06/17/2021 12:36:00 History of fall 905725360 Z91.81 Hypothyroidism 21794243 E03.9 Mixed anxi ety and depressive disorder 386358899 F41.8 Alcohol wi thdrawal without complication 21566098 F10.230 Normal grief reaction 27 2609843 F43.20 her less than two years ago [id number] MD Marsha Ashraf 14 IM [address] [facility] [place] [address] 10/13/2021 15:57:03 10/18/2021 14:16:29 Hypothyroidism 12333309 E03.9 Injury of hand 018186163 S69.91XA Liver enzy mes level above reference range 201753146 R74.01 Urinary incontinence 165 785273 N39.3 Current drinker 123413 Z72.89 [id number] MD Marsha Ashraf 14 IM [address] [facility] [place] [address] 02/16/2022 15:33:51 02/17/2022 16:03:47 Hypothyroidism 82399810 E03.9 Hypokalemia 43223439 E87 .6 Dysuria 14814894 R30.9 Screening mammography 24 168441 Z12.31 UTD Screening for malignant neoplasm of colon 575183255 Z12.11 colonoscop y done on 01-28-2021 Pain of jerri int of pelvis and/or upper leg 749635382 M25.559 Under care of industrial painter 487204568 Z76.89 APG--in [place] [id number] MD Marsha Ashraf 14 IM [address] [facility] [place] [address] 05/19/2022 14:16:42 05/24/2022 08:51:50 Chronic cough 25313799 R05.3 Normal grief reaction 27 3758827 F43.20 her less than two years ago Hypothyroidism 88794765 E03.9 Smoker 16522821 F17.200 6 cigarettes /day Screening for malignant neoplasm of colon 760276387 Z12.11 colonoscop y done on 01-28-2021- -good until January 2024 Essential hypertension 19328532 I10 Screening mammography 24 293985 Z12.31 UTD [id number] MD Marsha Ashraf 14 IM [address] [facility] [place] [address] 01/05/2023 15:00:37 01/10/2023 11:09:40 Mixed anxiety and depressive disorder 052195499 F41.8 PHQ=03/15, ALEXANDER=11/06 Obesity 168981684 E66.9 Smoker 99154656 F17.200 6 cigarettes /day Essential hypertension 49372225 I10 Chronic cough 06775967 R 05.3 Hypothyroidism 42320807 E03.9 pt is followed by an endocrinol ogist Health Concerns Section Related Observation LastModified by Organization Detai ls LastModified Time None Recorded Concern Status LastModified by Organization Details LastModified Time None Recorded Advance Directives Directive N: Payers Insurance Date Sequence Insurance Name Policy Number Policy Gudino Covered Member ID Gudino Member ID Guarantor Name 04/13/2023 1 [facility] ON OR AFTER 12/17/20 (MEDICAID REPLACEMENT - HMO) Jazlyn Brooklyn [id number] Jazlyn Andira 02/01/2021 1 [facility] PRIOR TO 12/17/2020 (MEDICAID REPLACEMENT - HMO) Jazlyn Brooklyn [id number] Jazlyn Waddell Notes Date Note Type Note Provider Name and Address Organization Details Recorded Time 06/16/2021 text/html Follow up to recent fall, resulting in fx of two ribs on her right side. Kaleb Callahan MD Attn: Accounting,[address] [place], [address], [facility] 06/17/2021 00:00:18 10/13/2021 text/html Pt presents for concerns about injury at right hand, her hand caught in a door due to windy weather. Kaleb Callahan MD Attn: Accounting[address] [place], [address], [facility] 10/15/2021 16:02:13 02/16/2022 text/html As per intake note. Clary Wilils RN [facility], [facility] 02/22/2022 17:25:09 05/19/2022 text/html Pt describes a cough now for more than one month. Kaleb Callahan MD Attn: Accounting[address] [place], [address], [facility] 05/23/2022 15:59:07 01/05/2023 text/html Per intake note. Kaleb bean MD Attn: Accounting[address] [place], [address], [facility] 01/09/2023 16:55:02 OBGyn Episode No OBEpisode recorded.
--- OUTSIDE RECORDS SUMMARY | 2025-01-08 09:54 | XMS_ITS | Referral Summary ---
Author Organization [facility] al Address [address] [place] [address] Care Team Providers Care Folder Operator Name Role Phone Miscellaneous, Not In File Unavailable Unava Kristyn Mason MD Primary Care Provider Peggy Ybarra DPM Unavailable Encounters Date Type Department Care Team Description 11/22/2024 12:00 PM CDT - 11/22/2024 2:30 PM CDT Surgery [facility] Operating Room [address] [place] [address] Peggy Ybarra, DPM CHEILECTOMY 1ST Metatarsal phalangeal joint 11/22/2024 12:19 PM CDT Anesthesia Event [facility] Operating [address] [place] [address] Armando Ortiz MD Alexander, Jeffrey Michael, 11/22/2024 10:29 AM CDT - 11/22/2024 4:03 PM CDT Hospital Encounter [facility] [address] [place] [address] Peggy Ybarra, DPM Discharge Disposition: Discharge to [...] 1 tablet (200 mcg total) by mouth 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 Active losartan (COZAAR) 100 mg [...] (12/25/2020): Added automatically from request for surgery [id number] Family history of colonic polyps 12/25/2020 Overview (12/25/2020): Added automatically from request for surgery [id number] DDD (degenerative disc disease), lumbar 02/07/20 19 [...] on file 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 [employer] Gender Identity Not on file Sexual Orientation [...] on file Medical Devices Implanted Type Area Shock Absorption Floor Layer Device Identifier Shelf Expiration Date Model / Serial / Lot Rt Knee Replacement Right: Knee [employer] Augusto 1.1mm 152mm Trocar Point 2 End Style 1 Wire Fixation [id number] - Sn/A - [id number] Implanted:Qty: 1 on 11/22/2024 by Peggy Ybarra DPM at [facility] Right: Second Toe [employer] 09/08/2032 [id number] / N/A / [id number] [employer] Augusto 1.1mm 152mm Trocar Point 2 End Style 1 Wire Fixation [id number] - Sn/A - [id number] Implanted:Qty: 1 on 11/22/2024 by Peggy Ybarra DPM at [facility] Right: Third Toe [employer] 09/05/2033 [id number] / N/A / [id number] Procedures Procedure Name Priority Date/Time Associated Diagnosis Comments XR FOOT RIGHT 1 VIEW IP Routine 11/22/2024 1:32 PM CDT FL FLUOROSCOPY < 1 HOUR IP Routine 11/22/2024 1:32 PM CDT CO AN ELECTIVE SUPRAGLOTTIC AIRWAY Routine 11/22/2024 12:30 [...] Caden Funk M.D. MF: ROYA Report ID: [id number] Reading Location: [id number] Procedure Note Caden Funk MD - 11/24/2024 [...] Caden Funk M.D. MF: ROYA Report ID: [id number] Reading Location: [id number] Peggy Ybarra DPRajesh IMG XR PROCEDURES Final Res ult * FL Fluoroscopy < 1 Hour (11/22/2024 1:32 PM CDT) Narrative [facility] - 11/22/2024 1:32 PM CDT The images from this study are not interpreted by Radiology. Please refer to the physician's procedure / OR operative note. us Peggy Ybarra DPM IMG FLUOROSCOPY PROCEDURES Final Result [facility] * CO AN ELECTIVE SUPRAGLOTTIC AIRWAY (11/22/2024 12:30 PM CDT) Narrative Eren Aden CRNA - 11/22/2024 12:30 PM CDT Eren Aden CRNA 11/22/2024 12:31 PM Airway Patient location: OR Urgency: elective Date/time: 11/22/2024 12:23 PM Indications for airway management: anesthesia Difficult airway: no Staff: Placed by: COMMUNITY HEALTH AGENT: Eren Aden CRNA Emergent airway documentation: Risks [...] attempts: 1 Additional comments: Smooth atraumatic placement. Armando Ortiz MD ANESTHESIA ORDERABLES Final Result * COLONOSCOPY (01/28/2021 10:42 AM CDT) Anatomical Region Laterality Modality Other Narrative Procedure Note Bravo Mcdonald MD - 01/28/2021 10:42 AM CDT [facility] Patient Name: Jazlyn Waddell Procedure Date: 01/28/2021 10:42 AM Date of : 1965 Admit Type: Outpatient Age: 55 Gender: Female Attending MD: Bravo Mcdonald M.D. Room: [facility] 2 Note Status: Finalized Patient [...] scope was passed under direct vision. TheColonoscope [id number] was introduced through the anus and advanced [...] 10:42 AM Procedure Code(s): --- Professional --- 54730, Colonoscopy, flexible; with removal of tumor(s), polyp(s), or other lesion(s) by snare technique Diagnosis Code(s): --- Professional --- K57.30, Diverticulosis of large intestine without perforation orabscess without bleeding K63.5, Polyp of colon K64.9, Unspecified hemorrhoids Z86.010, Personal history of colonic polyps CPT copyright 2019 [employer]. All rights reserved. The codes documented in this report are preliminary and upon truck sales manager reviewmay be revised to meet current compliance requirements. Recognized by the [employer] for promoting quality in endoscopy Bravo Mcdonald MD ENDOSCOPY PROCEDURES Final Re sult from Last 3 Months or Most Recently Relevant to Health Maintenance Insurance [facility] Advance Directives For more information, please contact: [phone] * Full Code (Latest Code Status on File) Date Activated Date Inactivated Comments 01/28/2021 10:26 AM 01/28/2021 5:20 PM * Full Code Date Activated Date Inactivated Comments 01/28/2021 10:26 AM 01/28/2021 10:26 AM Care Teams Folder Operator Relationship Specialty Start Date End Date Kristyn Champagne MD PCP - General Family Medicine 11/13/24 Miscellaneous, Not In File 10/05/16 Peggy Ybarra DPM [address] [place] [address] Consulting Physician Foot and Ankle Surg 11/22/24
--- OUTSIDE RECORDS SUMMARY | 2025-01-08 09:54 | XMS_ITS | Encounter Summary ---
Author Organization [facility] Facility Care Team Providers Care Mammalogist Name Role Phone Caden Hwang MD Primary Care Provider [phone] Miscellaneous, Not In File Primary Care Provider Unavailable Brittney Arredondo MD Primary Care Provider + [phone] Miscellaneous, Not In File Unavailable Unava ilable Caden Hwang MD Unavailable [phone] Unknown, Notinfile Primary Care Provider Unavail able Judith Lo MD Primary Care Provider [phone] Kaleb Atkinson MD Primary Care Provider [phone] Kristyn Champagne MD Primary Care Provider [phone] Peggy Ybarra DPM Unavailable [phone] Encounter Details Date Type Department Care Team (Latest Contact Info) Description 04/27/2016 Orders Only [facility] CLINCONV ProviderMono MD [address] [place] [address] Social History Tobacco Use Types Packs/Day Years Used Date Smoking Tobacco: Never Assessed Comments Unknown Sex and Gender Information Value Date Recorded Sex Assigned at Not on file 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 us Historical Provider Final Res ult documented in this encounter Visit Diagnoses Not on filedocumented in this encounter Care Teams Mammalogist Relationship Specialty Start Date End Date Caden Hwang MD [address] [facility] [address] [place] [address] PCP - General 01/31/14 09/18/16 Miscellaneous, Not In File PCP - General 09/19/16 10/04/16 Brittney Arredondo MD [address] [place] [address] [address] [place] [address] PCP - General 10/05/16 01/30/17 Unknown, Notinfile PCP - General 01/31/17 09/14/17 Judith Lo MD PCP - General 09/15/17 11/30/20 Kaleb Atkinson MD PCP - General Family Medicine 12/01/20 11/12/24 Kristyn Champagne MD PCP - General Family Medicine 11/13/24 Miscellaneous, Not In File 10/05/16 Caden Hwang MD [address] [facility] [address] [place] [address] 09/19/16 10/04/16 Peggy Ybarra, TINO [address] [place] [address] Consulting Physician Foot and Ankle Surg 11/22/24 documented as of this encounter
--- OUTSIDE RECORDS SUMMARY | 2025-01-08 09:54 | XMS_ITS | Encounter Summary ---
Author Organization [facility] Facility Care Team Providers Care Floor Sander Name Role Phone Caden Hwang MD Primary Care Provider [phone] Miscellaneous, Not In File Primary Care Provider Unavailable Brittney Arredondo MD Primary Care Provider + [phone] Miscellaneous, Not In File Unavailable Unava ilable Caden Hwang MD Unavailable [phone] Unknown, Notinfile Primary Care Provider Unavail able Judith Lo MD Primary Care Provider [phone] Kaleb Atkinson MD Primary Care Provider [phone] Kristyn Champagne MD Primary Care Provider [phone] Peggy Ybarra DPM Unavailable [phone] Encounter Details Date Type Department Care Team (Latest Contact Info) Description 11/18/2015 Orders Only [facility] CLINCONV ProviderMono MD [address] [place] [address] Social History Tobacco Use Types Packs/Day Years Used Date Smoking Tobacco: Never Assessed Comments Unknown Sex and Gender Information Value Date Recorded Sex Assigned at Not on file 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 Gender Identity Not on file Sexual [...] on filedocumented in this encounter Care Teams Floor Sander Relationship Specialty Start Date End Date Caden Hwang MD [address] [facility] [address] [place] [address] PCP - General 01/31/14 09/18/16 Miscellaneous, Not In File PCP - General 09/19/16 10/04/16 Brittney Arredondo MD [address] [place] [address] [address] [place] [address] PCP - General 10/05/16 01/30/17 Unknown, Notinfile PCP - General 01/31/17 09/14/17 Judith Lo MD PCP - General 09/15/17 11/30/20 Kaleb Atkinson MD PCP - General Family Medicine 12/01/20 11/12/24 Kristyn Champagne MD PCP - General Family Medicine 11/13/24 Miscellaneous, Not In File 10/05/16 Caden Hwang MD [address] [facility] [address] [place] [address] 09/19/16 10/04/16 Peggy Ybarra, TINO [address] [place] [address] Consulting Physician Foot and Ankle Surg 11/22/24 documented as of this encounter
--- OUTSIDE RECORDS SUMMARY | 2025-01-08 09:54 | XMS_ITS | Clinical Summary ---
Author Organization [facility] Address [address] [place] [address] Care Team Providers Care Silk Top Hat Body Maker Name Role Phone Unavailable Primary Care Provider [...]
--- OUTSIDE RECORDS SUMMARY | 2025-01-08 09:54 | XMS_ITS | Encounter Summary ---
Author Organization [facility]/Health system Facility Care Team Providers Care Pole Framer Machine Name Role Phone Caden Hwang MD Primary Care Provider [phone] Miscellaneous, Not In File Primary Care Provider Unavailable Brittney Arredondo MD Primary Care Provider + [phone] Miscellaneous, Not In File Unavailable Unava ilable Caden Hwang MD Unavailable [phone] Unknown, Notinfile Primary Care Provider Unavail able Judith Lo MD Primary Care Provider [phone] Kaleb Atkinson MD Primary Care Provider [phone] Kristyn Champagne MD Primary Care Provider [phone] Peggy Ybarra DPM Unavailable [phone] Encounter Details Date Type Department Care Team (Latest Contact Info) Description 11/05/2015 Orders Only [facility]G CLINCONV ProviderMono MD [address] [place] [address] Social History Tobacco Use Types Packs/Day Years Used Date Smoking Tobacco: Never Assessed Comments Unknown Sex and Gender Information Value Date Recorded Sex Assigned at Not on file 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 Gender Identity Not on file Sexual [...] on filedocumented in this encounter Care Teams Pole Framer Machine Relationship Specialty Start Date End Date Caden Hwang MD [address] [facility] [address] [place] [address] PCP - General 01/31/14 09/18/16 Miscellaneous, Not In File PCP - General 09/19/16 10/04/16 Brittney Arredondo MD [address] [place] [address] [address] [place] [address] PCP - General 10/05/16 01/30/17 Unknown, Notinfile PCP - General 01/31/17 09/14/17 Judith Lo MD PCP - General 09/15/17 11/30/20 Kaleb Atkinson MD PCP - General Family Medicine 12/01/20 11/12/24 Kristyn Champagne MD PCP - General Family Medicine 11/13/24 Miscellaneous, Not In File 10/05/16 Caden Hwang MD [address] [facility] [address] [place] [address] 09/19/16 10/04/16 Peggy Ybarra, TINO [address] [place] [address] Consulting Physician Foot and Ankle Surg 11/22/24 documented as of this encounter
[2025-01-08 10:52] LABS: Hematocrit 45.3 % (37.0-47.0); Hemoglobin 15.9 g/dL (12.0-15.0); Immature Granulocyte Percent A 0.3 % (0-0.5); Lymphocytes Absolute Auto 2.40 K/mm3 (0.9-3.2); Mean Corpuscular HGB Conc 35.1 g/dl (32-36); Mean Corpuscular Hemoglobin 35.4 pg (26-34); Mean Corpuscular Volume 100.9 fl (80-100); Nucleated Red Blood Cells Absolute Auto 0.000 K/mm3 (0.0-0.012); Nucleated Red Blood Cells Perc 0.0 % (0.0-0.2); Platelet Count Result 183 k/mm3 (150-375); Red Blood Count 4.49 M/mm3 (4.2-5.4); White Blood Count 9.2 K/mm3 (4.5-10.0)
[2025-01-08 11:27] LABS: Alanine Aminotransferase 30 U/L (6-35); Albumin Level 4.6 g/dL (3.5-5.1); Alkaline Phosphatase 63 U/L (38-126); Anion Gap 8 mmol/L (4-12); Aspartate Amino Transferase 45 U/L (14-36); Bilirubin,Total 0.6 mg/dL (0.2-1.3); Blood Urea Nitrogen 26 mg/dL (7-17); Calcium 10.5 mg/dL (8.4-10.2); Carbon Dioxide 26 mmol/L (22-30); Chloride 106 mmol/L (98-107); Estimated Glomerular Filt Rate > 60; Glucose 97 mg/dL (65-110); Lipase 49 U/L (23-300); Potassium 4.0 mmol/L (3.4-5.0); Sodium 140 mmol/L (137-145); Total Protein 7.9 g/dL (6.3-8.2)
== END 2025-01-08 09:46 | disposition home or self-care (01) ==
PROVIDERS: PCP Family Medicine; Visit Provider Family Medicine
DX: R10.9 Unspecified abdominal pain (principal)
CPT/HCPCS: 36415; 74019; 80053; 83690; 85025

== ENCOUNTER 2025-02-04 10:07 | Outpatient (CLI) | payer OTHER, SELFPAY ==
--- OUTSIDE RECORDS SUMMARY | 2000-01-21 05:00 | XMS_ITS | Continuity of Care Document ---
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 [address] , [address], [place], [address], [place]. tel:[phone] Family History Family Member Type Diagnosis Age At Onset No Information Payers Payer name Insurance type Covered green party ID Authoriza tion(s) No Information Social History Type Description Quantity Date Captured Comments Sex Female Smoking Status No Information Chief Complaint And Reason For Visit No Information Reason For Referral Reason For Referral No Information History Of Present Illness Encounter Date Complaint History Of Prese nt Illness No Information Functional Status Date Functional Assessmen t No Information Instructions Date Instruction Additional Infor mation No Information Assessments Type Assessment Date No Information Patient Care Teams Name Effective Dates (start - stop) Status Members No Information
--- OUTSIDE RECORDS SUMMARY | 2017-05-19 13:17 | XMS_ITS | Continuity of Care Document ---
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 Name Role Phone Donato Robins MD Unavailable Unavailable Allergies, Adverse Reactions, Alerts Substance Reaction Status Criticality SIBUTRAMINE HCL MONOHYDRATE Active No Information carbamazepine Active No Information Medications Medication Instructions Dosage Effective Dates (start - stop) Status Comments meloxicam 15 mg tablet TAKE 1 TABLET (15MG) BY ORAL ROUTE EVERY DAY WITH FOOD - Active Ultram 50 mg tablet take 1 tablet (50MG) 1 po tid or qid prn pain - Active ZYRTEC (unknown strength) Not Available - Active OMEPRAZOLE (unknown strength) Not Available - Active HYDROCHLOROTHIAZIDE (unknown strength) Not Available - Active LISINOPRIL (unknown strength) Not Available - Active ZOLOFT (unknown strength) Not Available - Active LEVOTHYROXINE SODIUM (unknown strength) Not Available - Active Procedures Procedure Date RADEX KNE COMPL 4/MORE VIEWS RADEX KNE COMPL 4/MORE VIEWS OFFICE/OUTPATIENT VISIT EST OFFICE/OUTPATIENT VISIT EST OFFICE/OUTPATIENT VISIT EST OFFICE/OUTPATIENT VISIT EST OFFICE/OUTPATIENT VISIT EST OFFICE CONSULTATION OFFICE/OUTPATIENT VISIT EST OFFICE/OUTPATIENT VISIT NEW Advance Directives Directive Yes / No Effective Date File Name No Information Encounters Encounter Description Practice Location Reason(s) For Visit Diagnoses Date Provider Providers Copied on Encounter [facility], [address], [place], [address], [place] tel:[phone] [facility] No Information 7 Julienne Sewell. [address] , [place], [place], [address] . tel: [phone] [facility], [address] [address], [place], [address], [place] tel:[phone] [facility] No Information 6 Dusdevon Campa. [address] , [place], [place], [id number] . tel: [phone] OFFICE/OUTPAT IENT VISIT EST [facility], [address] [address], [place], [address], [place] tel:[phone] [facility] Primary osteoarthritis of left kneePrimary osteoarthritis of right knee 6 Dusek Lokesh. [address] , [place], [place], [address] . tel: [phone] [facility], [address] [address], [place], [address], [place] tel:[phone] [facility] No Information 6 Sampson Bennett. [address] , [place], [place], [address] . tel: [phone] OFFICE/OUTPAT IENT VISIT EST [facility], [address], [address], [place] tel:[phone] [facility] Primary osteoarthritis of right kneePrimary osteoarthritis of left knee 5 Pawel Taryn. [address], [id number] . tel: [phone] OFFICE/OUTPAT IENT VISIT EST [facility], [address] [address], [place], [address], [place] tel:[phone] [facility] LBP and right leg pain (chief complaint) Lumbar radiculopathyDis c disease, degenerative, lumbar or lumbosacral 7-201 5 Sampson Bennett. [address] , [place], [place], [address] . tel: [phone] Referring Provider: Brittney Xiong [address] [place] [address] [address], [place], [address] . tel:[phone] OFFICE/OUTPAT IENT VISIT EST [facility], [address], [address], [place] tel:[phone] [facility] knee arthritisObesity , Morbidhip greater trochanteric bursitis 8 5 Prabha Campa. [address] [facility], [place], [place], [address] . tel: [phone] OFFICE/OUTPAT IENT VISIT EST [facility], [address], [address], [place] tel:[phone] [facility] LBP and right leg pain (chief complaint) Lumbar RadiculopathyDeg eneration of lumbar or lumbosacral intervertebral disc 5 Sampson Montesok. [address] [facility], [place], [place], [address] . tel: [phone] [facility], [address], [address], [place] tel:[phone] [facility] Lumbar Radiculopathy 4 5 Julienne Sewell. [address] , [place], [place], [address] . tel: [phone] OFFICE CONSULTATION [facility], [address], [address], [place] tel:[phone] [facility] LBP and right leg pain (chief complaint) Lumbar RadiculopathyDeg eneration of lumbar or lumbosacral intervertebral disc 0-201 4 Sampson Bennett. [address] [place], [place], [address] . tel: [phone] OFFICE/OUTPAT IENT VISIT EST [facility], [address], [address], tel:[phone] [facility] I am sore all over today after the fall down the steps (chief complaint) ObesityLow Back Pain 4 Julienne Sewell. [address] [facility] [place], [address] . tel:[phone] OFFICE/OUTPAT IENT VISIT NEW [facility], [address], [address], tel:[phone] [facility] My back and legs bother me (chief complaint) Obesity, MorbidLumbar Radiculopathy 4 Julienne Sewell. [address] [place], [place], [address] . tel:[phone] Referring Provider: Caden Doss, [address], [place], [address] . tel:[phone] [facility], [address], [address], tel:[phone] [facility] No Information 4 Julienne Sewell. [address] [place], [place], [address] . tel:[phone] Family History Family Member Type Diagnosis Age At Onset Son Problem (finding) Arthritis Father Problem (finding) hypertension Son Problem (finding) Crohn's disease Son Problem (finding) seizure disorder Son Problem (finding) Maternal history of esteban betes mellitus Mother Problem (finding) Heart disease Payers Payer name Insurance type Covered alliance party ID Authoriza tion(s) Blue Access PPO E2 OT [id number] Social History Type Description Quantity Date Captured Comments Sex Female Smoking Status No Information Chief Complaint And Reason For Visit No Information Reason For Referral Reason For Referral No Information Plan Of Treatment Date Type Action Status Referral Ordered: RADEX KNE COMPL 4/MORE VIEWS RT ordered Referral Ordered: RADEX KNE COMPL 4/MORE VIEWS LT ordered Referral Ordered: RADEX KNE COMPL 4/MORE VIEWS Bilateral ordered Referral Ordered: RADEX PELVIS 1/2 VIEWS ordered Referral Ordered: INJ FORAMEN EPIDURAL L/S spine, lumbar Appointment date/timeframe: 06/17/2014 ordered Referral Ordered: RADEX SPI LUMBOSAC 2/3 VIEWS ordered Referral Ordered: MRI SPI CANAL&CNTS LMBR C-MATRL Appointment date/timeframe: 06/02/2014 ordered Future Order: Lab Order BMP ([id number]), O rdered on: Ordered History Of Present Illness Encounter Date Complaint History Of Prese nt Illness LBP and right leg pain LBP and right leg pain LBP and right leg pain I am sore all over t michele after the fall down the steps My back and legs bother me Functional Status Date Functional Assessmen t No Information Instructions Date Instruction Additional Infor mation Weight loss reduces stress on joints. Related to Primary osteoarthritis of right knee Weight loss reduces stress on joints. Related to Primary osteoarthritis of right knee Rest, ice and elevate. Related t o Lumbar radiculopathy Home exercise program. Related t o Lumbar radiculopathy Take medication/NSAID as directe d. Related to knee arthritis At this time, I feel the patient would benefit from a course of non-operative management. I will start the patient on Naprosyn 500mg p.o. b.i.d. for the next three weeks. I will also start the patient in physical therapy to work on range of motion and strengthening of the lumbar spine and modalities as seen fit by the physical therapist. I discussed with the patient the importance of continuing home therapy once formal therapy has ended. I would like to see the patient again in six weeks. All the patient's questions were answered. Related to Low Back Pain Dietary needs education Related to Obesity, unspecified Continue home exercise program. Related to Low Back Pain Take medication as directed. Rel ated to Low Back Pain At this time an MRI of the lumbar spine is needed to assess for soft tissue or disc pathology that may be contributing to the patient's back pain and bilateral leg radicular type symptoms. I will see the patient after the MRI is completed. All the patient's questions were answered. Related to Lumbar Radiculopathy Continue home exercise program. Related to Lumbar Radiculopathy Take medication as directed. Rel ated to Lumbar Radiculopathy Dietary needs education Related to Morbid obesity Assessments Type Assessment Date No Information Patient Care Teams Name Effective Dates (start - stop) Status Members No Information
--- NOTE | ~2025-02-04 | XR_ITS ---
XR hip LT min 2V 02/04/2025 10:23 Indication: Left hip pain for 2 months Procedure: 2 views left hip Comparison: 02/15/2018 Findings: Progression of severe osteoarthritis of the left hip. No acute fracture, subluxation or dislocation. No foreign bodies. Impression: 1: Interval progression of severe osteoarthritis of the left hip. Reviewed, dictated and finalized at location A. Impression: 1: Interval progression of severe osteoarthritis of the left hip.
--- OUTSIDE RECORDS SUMMARY | 2025-02-04 10:34 | XMS_ITS | Encounter Summary ---
Author Organization [facility] Facility Care Team Providers Care Epic Radiant Analyst Name Role Phone Brittney Arredondo MD Primary Care Provider [phone] Miscellaneous, Not In File Unavailable Unava ilable Unknown, Notinfile Primary Care Provider Unavail able Judith Lo MD Primary Care Provider [phone] Kaleb Atkinson MD Primary Care Provider [phone] Kristyn Champagne MD Primary Care Provider [phone] Peggy Ybarra DPM Unavailable [phone] Encounter Details Date Type Department Care Team (Latest Contact Info) Description 10/24/2016 Orders Only [facility] CLINCONV ProviderMono MD [address] [place] [address] Social History Tobacco Use Types Packs/Day Years Used Date Smoking Tobacco: Every Day Alcohol Use Standard Drinks/Week Comments No 0 (1 standard drink = 0.6 oz pur e alcohol) Comments Unknown Sex and Gender Information Value Date Recorded Sex Assigned at Not on file 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 Gender Identity Not on file Sexual Orientation [...] on filedocumented in this encounter Care Teams Epic Radiant Analyst Relationship Specialty Start Date End Date Brittney Arredondo MD [address] [place] [address] PCP - General 10/05/16 01/30/17 Unknown, Notinfile PCP - General 01/31/17 09/14/17 Judith Lo MD PCP - General 09/15/17 11/30/20 Kaleb Atkinson MD PCP - General Family Medicine 12/01/20 11/12/24 Kristyn Champagne MD PCP - General Family Medicine 11/13/24 Miscellaneous, Not In File 10/05/16 Peggy Ybarra DPM [address] [place] [address] Consulting Physician Foot and Ankle Surg 11/22/24 documented as of this encounter
--- OUTSIDE RECORDS SUMMARY | 2025-02-04 10:34 | XMS_ITS | Clinical Summary ---
Author Organization [facility] Address [address] [place] [address] Care Team Providers Care Veterinary Technician Name Role Phone Unavailable Primary Care Provider [...] Cervical Cancer Screening (CCS) 08/29/1995 HPV/Cotest 08/29/1995 Cologuard 2010 Colonoscopy 2010 Colorectal Cancer Screening 2010 Immunochemical Fecal Occult Blood 2010 Pneumococcal Immunization (5 0+ years) (1 of 1 - PCV) 08/29/2015 Zoster Immunization (1 of 2) 08/29/2015 SARS-COV-2 Immunization (2023-25 season) 2024 Influenza Immunization (#1) 2025 Respiratory Syncytial Virus (RSV) Immunization (Adult) (1 - 1-dose 75+ series) 2040 Human Papillomavirus (HPV) Immunization Aged Out No longer eligible b ased on patient's age to complete this topic Meningococcal Immunization (ACWY) Aged Out No longer eligible based on patient's age to complete this topic Rotavirus Immunization Aged Out No lo nger eligible based on patient's age to complete this topic
--- OUTSIDE RECORDS SUMMARY | 2025-02-04 10:34 | XMS_ITS | Encounter Summary ---
Author Organization [facility] Facility Care Team Providers Care Tax Audit Manager Name Role Phone Caden Hwang MD Primary Care Provider [phone] Miscellaneous, Not In File Primary Care Provider Unavailable Brittney Arredondo MD Primary Care Provider + [phone] Miscellaneous, Not In File Unavailable Unava ilable Caden Hwang MD Unavailable [phone] Unknown, Notinfile Primary Care Provider Unavail able Judith Lo MD Primary Care Provider [phone] Kaleb Atkinson MD Primary Care Provider [phone] Kristyn Champagne MD Primary Care Provider [phone] Peggy Ybarra DPM Unavailable [phone] Encounter Details Date Type Department Care Team (Latest Contact Info) Description 11/05/2015 Orders Only [facility] CLINCONV ProviderMono MD [address] [place] [address] Social History Tobacco Use Types Packs/Day Years Used Date Smoking Tobacco: Never Assessed Comments Unknown Sex and Gender Information Value Date Recorded Sex Assigned at Not on file 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 Gender Identity Not on file Sexual [...] on filedocumented in this encounter Care Teams Tax Audit Manager Relationship Specialty Start Date End Date Caden Hwagn MD [address] [facility] [address] [place] [address] PCP - General 01/31/14 09/18/16 Miscellaneous, Not In File PCP - General 09/19/16 10/04/16 Brittney Arredondo MD [address] [place] [address] [address] [place] [address] PCP - General 10/05/16 01/30/17 Unknown, Notinfile PCP - General 01/31/17 09/14/17 Judith Lo MD PCP - General 09/15/17 11/30/20 Kaleb Atkinson MD PCP - General Family Medicine 12/01/20 11/12/24 Kristyn Champagne MD PCP - General Family Medicine 11/13/24 Miscellaneous, Not In File 10/05/16 Caden Hwang MD [address] [facility] [address] [place] [address] 09/19/16 10/04/16 Peggy Ybarra, TINO [address] [place] [address] Consulting Physician Foot and Ankle Surg 11/22/24 documented as of this encounter
--- OUTSIDE RECORDS SUMMARY | 2025-02-04 10:34 | XMS_ITS | Encounter Summary ---
Author Organization [facility] Facility Care Team Providers Care Manager Global Communications Name Role Phone Caden Hwang MD Primary Care Provider [phone] Miscellaneous, Not In File Primary Care Provider Unavailable Brittney Arredondo MD Primary Care Provider + [phone] Miscellaneous, Not In File Unavailable Unava ilable Caden Hwang MD Unavailable [phone] Unknown, Notinfile Primary Care Provider Unavail able Judith Lo MD Primary Care Provider [phone] Kaleb Atkinson MD Primary Care Provider [phone] Kristyn Champagne MD Primary Care Provider [phone] Peggy Ybarra DPM Unavailable [phone] Encounter Details Date Type Department Care Team (Latest Contact Info) Description 12/31/2015 Orders Only [facility] CLINCONV ProviderMono MD [address] [place] [address] Social History Tobacco Use Types Packs/Day Years Used Date Smoking Tobacco: Never Assessed Comments Unknown Sex and Gender Information Value Date Recorded Sex Assigned at Not on file 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 Gender Identity Not on file Sexual Orientation [...] filedocumented in this encounter Care Teams Manager Global Communications Relationship Specialty Start Date End Date Caden Hwang MD 15[address] [facility] [address] [place], [place] [id number] PCP - General 01/31/14 09/18/16 Miscellaneous, Not In File PCP - General 09/19/16 10/04/16 Brittney Arredondo MD [address] [place] [address] PCP - General 10/05/16 01/30/17 Unknown, Notinfile PCP - General 01/31/17 09/14/17 Judith Lo MD PCP - General 09/15/17 11/30/20 Kaleb Atkinson MD PCP - General Family Medicine 12/01/20 11/12/24 Kristyn Champagne MD PCP - General Family Medicine 11/13/24 Miscellaneous, Not In File 10/05/16 Caden Hwang MD [address] [address] 09/19/16 10/04/16 Peggy Ybarra DPM [address] [place] [address] Consulting Physician Foot and Ankle Surg 11/22/24 documented as of this encounter
--- OUTSIDE RECORDS SUMMARY | 2025-02-04 10:34 | XMS_ITS | Encounter Summary ---
Author Organization [facility] Facility Care Team Providers Care Leather Coater Name Role Phone Caden Hwang MD Primary Care Provider [phone] Miscellaneous, Not In File Primary Care Provider Unavailable Brittney Arredondo MD Primary Care Provider + [phone] Miscellaneous, Not In File Unavailable Unava ilable Caden Hwang MD Unavailable [phone] Unknown, Notinfile Primary Care Provider Unavail able Judith Lo MD Primary Care Provider [phone] Kaleb Atkinson MD Primary Care Provider [phone] Kristyn Champagne MD Primary Care Provider [phone] Peggy Ybarra DPM Unavailable [phone] Encounter Details Date Type Department Care Team (Latest Contact Info) Description 01/11/2016 Orders Only [facility] CLINCONV ProviderMono MD [address] [place] [address] Social History Tobacco Use Types Packs/Day Years Used Date Smoking Tobacco: Never Assessed Comments Unknown Sex and Gender Information Value Date Recorded Sex Assigned at Not on file 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 Gender Identity Not on file Sexual Orientation [...] on filedocumented in this encounter Care Teams Leather Coater Relationship Specialty Start Date End Date Caden Hwang MD 15[address] [facility] [address] [place] [address] PCP - General 01/31/14 09/18/16 Miscellaneous, Not In File PCP - General 09/19/16 10/04/16 Brittney Arredondo MD [address] [place] [address] [address] [place] [address] PCP - General 10/05/16 01/30/17 Unknown, Notinfile PCP - General 01/31/17 09/14/17 Judith Lo MD PCP - General 09/15/17 11/30/20 Kaleb Atkinson MD PCP - General Family Medicine 12/01/20 11/12/24 Kristyn Champagne MD PCP - General Family Medicine 11/13/24 Miscellaneous, Not In File 10/05/16 Caden Hwang MD [address] [address] 09/19/16 10/04/16 Peggy Ybarra DPM [address] [place] [address] Consulting Physician Foot and Ankle Surg 11/22/24 documented as of this encounter
--- OUTSIDE RECORDS SUMMARY | 2025-02-04 10:34 | XMS_ITS | Encounter Summary ---
Author Organization [facility] Facility Care Team Providers Care Surface Room Shop Optician Name Role Phone Caden Hwang MD Primary Care Provider [phone] Miscellaneous, Not In File Primary Care Provider Unavailable Brittney Arredondo MD Primary Care Provider + [phone] Miscellaneous, Not In File Unavailable Unava ilable Caden Hwang MD Unavailable [phone] Unknown, Notinfile Primary Care Provider Unavail able Judith Lo MD Primary Care Provider [phone] Kaleb Atkinson MD Primary Care Provider [phone] Kristyn Champagne MD Primary Care Provider [phone] Peggy Ybarra DPM Unavailable [phone] Encounter Details Date Type Department Care Team (Latest Contact Info) Description 04/27/2016 Orders Only [facility] CLINCONV ProviderMono MD [address] [place] [address] Social History Tobacco Use Types Packs/Day Years Used Date Smoking Tobacco: Never Assessed Comments Unknown Sex and Gender Information Value Date Recorded Sex Assigned at Not on file 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 us Historical Provider Final Res ult documented in this encounter Visit Diagnoses Not on filedocumented in this encounter Care Teams Surface Room Shop Optician Relationship Specialty Start Date End Date Caden Hwang MD 1512 [facility] [address] [place] [address] PCP - General 01/31/14 09/18/16 Miscellaneous, Not In File PCP - General 09/19/16 10/04/16 Brittney Arredondo MD [address] [place] [address] [address] [place] [address] PCP - General 10/05/16 01/30/17 Unknown, Notinfile PCP - General 01/31/17 09/14/17 Judith Lo MD PCP - General 09/15/17 11/30/20 Kaleb Atkinson MD PCP - General Family Medicine 12/01/20 11/12/24 Kristyn Champagne MD PCP - General Family Medicine 11/13/24 Miscellaneous, Not In File 10/05/16 Caden Hwang MD 1512 [facility] [address] [place] [address] 09/19/16 10/04/16 Peggy Ybarra, TINO [address] [place] [address] Consulting Physician Foot and Ankle Surg 11/22/24 documented as of this encounter
--- OUTSIDE RECORDS SUMMARY | 2025-02-04 10:34 | XMS_ITS | Encounter Summary ---
Author Organization [facility] Facility Care Team Providers Care Fairground Operator Name Role Phone Brittney Arredondo MD Primary Care Provider [phone] Miscellaneous, Not In File Unavailable Unava ilable Unknown, Notinfile Primary Care Provider Unavail able Judith Lo MD Primary Care Provider [phone] Kaleb Atkinson MD Primary Care Provider [phone] Kristyn Champagne MD Primary Care Provider [phone] Peggy Ybarra DPM Unavailable [phone] Encounter Details Date Type Department Care Team (Latest Contact Info) Description 12/29/2016 Orders Only [facility] CLINCONV ProviderMono MD [address] [place] [address] Social History Tobacco Use Types Packs/Day Years Used Date Smoking Tobacco: Every Day Alcohol Use Standard Drinks/Week Comments No 0 (1 standard drink = 0.6 oz pur e alcohol) Comments Unknown Sex and Gender Information Value Date Recorded Sex Assigned at Not on file 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 Gender Identity Not on file Sexual [...] on filedocumented in this encounter Care Teams Fairground Operator Relationship Specialty Start Date End Date Brittney Arredondo MD [address] [place] [address] PCP - General 10/05/16 01/30/17 Unknown, Notinfile PCP - General 01/31/17 09/14/17 Judith Lo MD PCP - General 09/15/17 11/30/20 Kaleb Atkinson MD PCP - General Family Medicine 12/01/20 11/12/24 Kristyn Champagne MD PCP - General Family Medicine 11/13/24 Miscellaneous, Not In File 10/05/16 Peggy Ybarra DPM [address] [place] [address] Consulting Physician Foot and Ankle Surg 11/22/24 documented as of this encounter
--- OUTSIDE RECORDS SUMMARY | 2025-02-04 10:34 | XMS_ITS | Clinical Summary ---
Author Organization [facility] Address [address] [place] [address] Care Team Providers Care Ground Source Heat Pump Technician Name Role Phone Miscellaneous, Not In File Unavailable Unava ilable Kristyn Champagne MD Primary Care Provider [phone] Peggy Ybarra DPM Unavailable [phone] Allergies Active Allergy Reactions Criticality Noted Date [...] 1 tablet (200 mcg total) by mouth care process manager before breakfast Active losartan (COZAAR) 100 [...] (12/25/2020): Added automatically from request for surgery [id number] Family history of colonic polyps 12/25/2020 Overview (12/25/2020): Added automatically from request for surgery [id number] DDD (degenerative disc disease), lumbar 02/07/20 19 [...] Description 11/22/2024 12:19 PM CDT Anesthesia Event [facility] [address] [place] [address] Armando Ortiz MD Alexander, Jeffrey Michael, 11/22/2024 12:00 PM CDT - 11/22/2024 2:30 PM CDT Surgery [facility] [address] [place] [address] Peggy Ybarra, DPM CHEILECTOMY 1ST Metatarsal phalangeal joint 11/22/2024 10:29 AM CDT - 11/22/2024 4:03 PM CDT Hospital Encounter [facility] [address] [place] [address] Peggy Ybarra, DPM Discharge Disposition: Discharge to [...] on file 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 Gender Identity Not on file Sexual Orientation [...] Discontinued 01/28/2021 Medical Devices Implanted Type Area Management And Budget Analyst Device Identifier Shelf Expiration Date Model / Serial / Lot Rt Knee Replacement Right: Knee [employer] Augusto 1.1mm 152mm Trocar Point 2 End Style 1 Wire Fixation [id number] - Sn/A - [id number] Implanted:Qty: 1 on 11/22/2024 by Peggy Ybarra DPM at [facility] Right: Second Toe [employer] 09/08/2032 [id number] / N/A / [id number] [employer] Augusto 1.1mm 152mm Trocar Point 2 End Style 1 Wire Fixation [id number] - Sn/A - [id number] Implanted:Qty: 1 on 11/22/2024 by Peggy Ybarra DPM at [facility] Right: Third Toe [employer] 09/05/2033 [id number] / N/A / [id number] Procedures Procedure Name Priority Date/Time Associated Diagnosis [...] Caden Funk M.D. MF: ROYA Report ID: [id number] Reading Location: [id number] Procedure Note Caden Funk MD - 11/24/2024 [...] Caden Funk M.D. MF: ROYA Report ID: [id number] Reading Location: [id number] Peggy Ybarra DPM IMG XR PROCEDURES [...] anesthesia Difficult airway: no Staff: Placed by: RECORDING STUDIO SET UP WORKER: Eren Aden CRNA Emergent airway documentation: Risks [...] Mcdonald MD - 01/28/2021 10:42 AM CDT [facility] Patient Name: Jazlyn Waddell Procedure Date: 01/28/2021 10:42 AM Date of : 1965 Admit Type: Outpatient Age: 55 Gender: Female Attending MD: Bravo Mcdonald M.D. Room: [facility] ENDOSCOPY ROOM 2 Note Status: Finalized [...] scope was passed under direct vision. TheColonoscope [id number] was introduced through the anus and advanced [...] 10:42 AM Procedure Code(s): --- Professional --- 20571, Colonoscopy, flexible; with removal of tumor(s), polyp(s), or other lesion(s) by snare technique Diagnosis Code(s): --- Professional --- K57.30, Diverticulosis of large intestine without perforation orabscess without bleeding K63.5, Polyp of colon K64.9, Unspecified hemorrhoids Z86.010, Personal history of colonic polyps CPT copyright 2019 [employer]. All rights reserved. The codes documented in this report are preliminary and upon gas and oil servicer reviewmay be revised to meet current compliance requirements. Recognized by the [employer] for promoting quality in endoscopy Bravo Mcdonald MD ENDOSCOPY PROCEDURES Final Re sult from Last 3 Months or Most Recently Relevant to Health Maintenance Insurance [facility] Advance Directives For more information, please contact: [phone] * Full Code (Latest Code Status on File) Date Activated Date Inactivated Comments 01/28/2021 10:26 AM 01/28/2021 5:20 PM * Full Code Date Activated Date Inactivated Comments 01/28/2021 10:26 AM 01/28/2021 10:26 AM Care Teams Ground Source Heat Pump Technician Relationship Specialty Start Date End Date Kristyn Champagne MD PCP - General Family Medicine 11/13/24 Miscellaneous, Not In File 10/05/16 Peggy Ybarra, DPM [address] [place] [address] Consulting Physician Foot and Ankle Surg 11/22/24
--- OUTSIDE RECORDS SUMMARY | 2025-02-04 10:34 | XMS_ITS | Encounter Summary ---
Author Organization [facility] Facility Care Team Providers Care Electric Deicer Inspector Name Role Phone Caden Hwang MD Primary Care Provider [phone] Miscellaneous, Not In File Primary Care Provider Unavailable Brittney Arredondo MD Primary Care Provider + [phone] Miscellaneous, Not In File Unavailable Unava ilable Caden Hwang MD Unavailable [phone] Unknown, Notinfile Primary Care Provider Unavail able Judith Lo MD Primary Care Provider [phone] Kaleb Atkinson MD Primary Care Provider [phone] Kristyn Champagne MD Primary Care Provider [phone] Peggy Ybarra DPM Unavailable [phone] Encounter Details Date Type Department Care Team (Latest Contact Info) Description 08/02/2014 Orders Only [facility]G CLINCONV ProviderMono MD [address] [place] [address] Social History Tobacco Use Types Packs/Day Years Used Date Smoking Tobacco: Never Assessed Comments Unknown Sex and Gender Information Value Date Recorded Sex Assigned at Not on file 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 Gender Identity Not on file Sexual [...] on filedocumented in this encounter Care Teams Electric Deicer Inspector Relationship Specialty Start Date End Date Caden Hwang MD 15[address] [facility] [address] [place] [address] PCP - General 01/31/14 09/18/16 Miscellaneous, Not In File PCP - General 09/19/16 10/04/16 Brittney Arredondo MD [address] [place] [address] [address] [place] [address] PCP - General 10/05/16 01/30/17 Unknown, Notinfile PCP - General 01/31/17 09/14/17 Judith Lo MD PCP - General 09/15/17 11/30/20 Kaleb Atkinson MD PCP - General Family Medicine 12/01/20 11/12/24 Kristyn Champagne MD PCP - General Family Medicine 11/13/24 Miscellaneous, Not In File 10/05/16 Caden Hwang MD 15[address] [facility] [address] [place] [address] 09/19/16 10/04/16 Peggy Ybarra, TINO [address] [place] [address] Consulting Physician Foot and Ankle Surg 11/22/24 documented as of this encounter
--- OUTSIDE RECORDS SUMMARY | 2025-02-04 10:34 | XMS_ITS | Encounter Summary ---
Author Organization [facility] Facility Care Team Providers Care Transit Worker Name Role Phone Caden Hwang MD Primary Care Provider [phone] Miscellaneous, Not In File Primary Care Provider Unavailable Brittney Arredondo MD Primary Care Provider + [phone] Miscellaneous, Not In File Unavailable Unava ilable Caden Hwang MD Unavailable [phone] Unknown, Notinfile Primary Care Provider Unavail able Judith Lo MD Primary Care Provider [phone] Kaleb Atkinson MD Primary Care Provider [phone] Kristyn Champagne MD Primary Care Provider [phone] Peggy Ybarra DPM Unavailable [phone] Encounter Details Date Type Department Care Team (Latest Contact Info) Description 01/06/2016 Orders Only [facility]G CLINCONV ProviderMono MD [address] [place] [address] Social History Tobacco Use Types Packs/Day Years Used Date Smoking Tobacco: Never Assessed Comments Unknown Sex and Gender Information Value Date Recorded Sex Assigned at Not on file 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 Gender Identity Not on file Sexual Orientation [...] on filedocumented in this encounter Care Teams Transit Worker Relationship Specialty Start Date End Date Caden Hwang MD 15[address] [facility] [address] [place] [address] PCP - General 01/31/14 09/18/16 Miscellaneous, Not In File PCP - General 09/19/16 10/04/16 Brittney Arredondo MD [address] [place] [address] [address] [place] [address] PCP - General 10/05/16 01/30/17 Unknown, Notinfile PCP - General 01/31/17 09/14/17 Judith Lo MD PCP - General 09/15/17 11/30/20 Kaleb Atkinson MD PCP - General Family Medicine 12/01/20 11/12/24 Kristyn Champagne MD PCP - General Family Medicine 11/13/24 Miscellaneous, Not In File 10/05/16 Caden Hwang MD [address]12 [facility] [address] [place] [address] 09/19/16 10/04/16 Peggy Ybarra, TINO [address] [place] [address] Consulting Physician Foot and Ankle Surg 11/22/24 documented as of this encounter
--- OUTSIDE RECORDS SUMMARY | 2025-02-04 10:34 | XMS_ITS | Encounter Summary ---
Author Organization [facility] Facility Care Team Providers Care Hat Blocking Machine Operator Name Role Phone Caden Hwang MD Primary Care Provider [phone] Miscellaneous, Not In File Primary Care Provider Unavailable Brittney Arredondo MD Primary Care Provider + [phone] Miscellaneous, Not In File Unavailable Unava ilable Caden Hwang MD Unavailable [phone] Unknown, Notinfile Primary Care Provider Unavail able Judith Lo MD Primary Care Provider [phone] Kaleb Atkinson MD Primary Care Provider [phone] Kristyn Champagne MD Primary Care Provider [phone] Peggy Ybarra DPM Unavailable [phone] Encounter Details Date Type Department Care Team (Latest Contact Info) Description 11/18/2015 Orders Only [facility] ProviderMono MD [address] [place] [id number] Social History Tobacco Use Types Packs/Day Years Used Date Smoking Tobacco: Never Assessed Comments Unknown Sex and Gender Information Value Date Recorded Sex Assigned at Not on file Legal Sex Female 8:30 PM [employer] Gender Identity Not on file Sexual [...] on filedocumented in this encounter Care Teams Hat Blocking Machine Operator Relationship Specialty Start Date End Date Caden Hwang MD [address] [facility] [address] [place] [address] PCP - General 01/31/14 09/18/16 Miscellaneous, Not In File PCP - General 09/19/16 10/04/16 Brittney Arredondo MD [address] [place] [address] [address] [place] [address] PCP - General 10/05/16 01/30/17 Unknown, Notinfile PCP - General 01/31/17 09/14/17 Judith Lo MD PCP - General 09/15/17 11/30/20 Kaleb Atkinson MD PCP - General Family Medicine 12/01/20 11/12/24 Kristyn Champagne MD PCP - General Family Medicine 11/13/24 Miscellaneous, Not In File 10/05/16 Caden Hwang MD [address] [facility] [address] [place] [address] 09/19/16 10/04/16 Peggy Ybarra, TINO [address] [place] [id number] Consulting Physician Foot and Ankle Surg 11/22/24 documented as of this encounter
== END 2025-02-04 10:08 | disposition home or self-care (01) ==
PROVIDERS: PCP Family Medicine; Visit Provider Family Medicine
DX: M16.12 Unilateral primary osteoarthritis, left hip (principal)
CPT/HCPCS: 73502